=== PATIENT | male | born 1945 | race Caucasian/White ===

== ENCOUNTER 2016-10-22 05:49 | Inpatient (IN) | payer MEDICARE ==
[2016-10-22] VITALS (18 sets, daily range): BP systolic 88–210; BP diastolic 46–94
[~2016-10-22] VITALS: Ht 195.5 cm; Wt 104.5 kg
[~2016-10-22 05:49] MED LIST: ALBUTEROL0.09 MG/A2 IH; ALBUTEROL0.09 MG/A2 INH; ASPI-COR81 M1 PO; ATIVAN0.5 MG PO; AVAPRO300 MG PO; BENICAR40 MG PO; CELEBREX200 MG PO; CIPRO500 MG PO; CIPROFLOXACIN500 MG PO; CLINDAMYCIN HC300 MG PO; COLACE100 MG PO; COPPERAS1 CRE; DOXYCYCLINE100 MG PO; DULCOLAX10 MG RC; ECOTRIN325 MG PO; ENTERIC ASPIRI325 MG PO; FLAGYL500 MG; IMDUR60 MG PO; ISOSORBIDE30 MG PO; KEFLEX500 MG PO; LEVAQUIN750 MG PO; LIPITOR80 MG PO; LOPRESSOR50 MG PO; LYRICA75 MG PO; Lovenox30 MG/0.3 SC; MEDROL DOSEPAK4 MG PO; MOM30 ML PO; NITROGLYCER0.1 MG/HR T; NITROGLYCERIN0.4 MG PO; NITROSTAT0.4 MG SL; NORFLEX100 MG PO; OXY IR5 MG PO; OXYCODONE5 MG PO; PERCOCET 325 MG1 TA2 PO; PERCOCET 325 MG1 TA4 PO; PERCOCET 325 MG1 TA7 PO; PLAVIX75 MG PO; PREDNICOT20 MG PO; PREDNISONE20 M1 PO; PRILOSEC20 MG PO; ROBITUSSIN AC 110 ML PO; VICODIN 5/500 505 MG PO; VICODIN ES 7501 TA1 PO; ZETIA10 MG PO; ZITHROMAX Z PA250 MG PO; ZITHROMAX250 MG PO; ZOFRAN ODT4 MG SL; [UNRECOGNIZED DRUG - OTHER] PO
[2016-10-22 06:04] LABS: BASO % 0.6 % (0.0-1.0); EOS # 0.2 10*3/uL (0.0-0.4); EOS % 3.4 % (1.0-4.0); HEMATOCRIT 43.1 % (42.0-52.0); HEMOGLOBIN 14.1 g/dl (14.0-18.0); LYMPH # 1.7 10*3/uL (1.3-4.4); LYMPH % 26.5 % (27.0-41.0); MEAN CELL VOLUME 93.3 fl (80.0-94.0); MEAN CORPUSCULAR HGB 30.5 pg (27.0-31.0); MEAN CORPUSCULAR HGB CONC 32.7 g/dl (33.0-37.0); MEAN PLATELET VOLUME 9.8 fl (9.6-12.3); MONO # 0.6 10*3/uL (0.1-1.0); MONO % 9.1 % (3.0-9.0); NEUT # 3.9 10*3/uL (2.3-7.9); NEUT % 60.1 % (47.0-73.0); PLATELET COUNT AUTOMATED 186 10*3/uL (130-400); RED BLOOD COUNT 4.62 10*6/uL (4.50-5.90); RED CELL DISTRI WIDTH 13.4 % (0-14.5); WHITE BLOOD COUNT 6.5 10*3/uL (4.8-10.8)
[2016-10-22 06:12] LABS: INTERNATIONAL NORM RATIO 1.1 (2.0-3.5); PROTHROMBIN TIME 11.4 SECONDS (9.0-12.4)
[2016-10-22 06:20] LABS: ALBUMIN 3.7 gm/dl (3.1-4.5); ALKALINE PHOSPHATASE 58 U/L (45-117); BILIRUBIN, TOTAL 0.6 mg/dl (0.2-1.0); BUN 20 mg/dl (7-24); CARBON DIOXIDE 21 mmol/L (21-32); CHLORIDE 105 mmol/L (98-107); EST GLOM FILT AFRICAN AMERICAN > 60 ml/min; GLUCOSE 176 mg/dL (65-99); MAGNESIUM 1.9 mg/dL (1.5-2.1); POTASSIUM 3.5 mmol/L (3.5-5.1); SGOT/AST 32 IU/L (3-35); SGPT/ALT 38 U/L (12-78); SODIUM 140 mmol/L (136-145); TOTAL PROTEIN 7.4 gm/dL (6.4-8.2)
[2016-10-22 06:24] LABS: TROPONIN I 0.057 ng/ml (<0.045)
[2016-10-22] MEDS ORDERED: IMDUR SA60 M1 PO (09:56)
[2016-10-22] MEDS ORDERED: PLAVIX75 M1 PO (09:56)
[2016-10-22] MEDS ORDERED: LOPRESSOR50 M1 PO (09:57)
[2016-10-22] MEDS ORDERED: BENICAR40 MG PO (09:57)
[2016-10-22] MEDS ORDERED: PRILOSEC20 M1 PO (09:58)
[2016-10-22] MEDS ORDERED: NOVOLOG MI100 UNIT/1 SQ (10:21)
[2016-10-23] VITALS: BP 103/50
[2016-10-23 04:00] VITALS: BP 108/48
[2016-10-23 08:00] VITALS: BP 109/58
[2016-10-23 11:44] VITALS: BP 100/51
[2016-10-23 16:00] VITALS: BP 126/75
[2016-10-23 20:00] VITALS: BP 105/48
[2016-10-24] VITALS: BP 109/48
[2016-10-24 07:59] VITALS: BP 130/84
[2016-10-24 12:00] VITALS: BP 102/66
[2016-10-24] MEDS ORDERED: VENTOLIN,PR2 MG/5 ML PO (12:38)
[2016-10-24] MEDS ORDERED: CELEXA20 MG PO (12:38)
[2016-10-24] MEDS ORDERED: ADVAIR 250/501 EA INH (12:38)
== END 2016-10-24 14:12 | disposition home or self-care (01) | DRG 189 ==
LOC: ED 05:49 → EDHOLD 06:20 → ICCU 06:20 → 4E 10-23 14:04
PROVIDERS: Emergency Medicine Emergency Medical Services
PROC: 3E073KZ Introduction of Other Diagnostic Substance into Coronary Artery, Percutaneous Approach (ICD-10-PCS; principal; 2016-10-22)
PROC: 4A02XM4 Measurement of Cardiac Total Activity, External Approach (ICD-10-PCS; principal; 2016-10-22)
PROC: 5A09357 Assistance with Respiratory Ventilation, Less than 24 Consecutive Hours, Continuous Positive Airway Pressure (ICD-10-PCS; principal; 2016-10-22)
DX: J96.00 Acute respiratory failure, unspecified whether with hypoxia or hypercapnia (principal); I50.21 Acute systolic (congestive) heart failure; I42.9 Cardiomyopathy, unspecified; G20 Parkinson's disease; J44.1 Chronic obstructive pulmonary disease with (acute) exacerbation; I11.0 Hypertensive heart disease with heart failure; I25.5 Ischemic cardiomyopathy; I25.10 Atherosclerotic heart disease of native coronary artery without angina pectoris; Z96.651 Presence of right artificial knee joint; F32.9 Major depressive disorder, single episode, unspecified; Z79.899 Other long term (current) drug therapy; K21.9 Gastro-esophageal reflux disease without esophagitis; D63.8 Anemia in other chronic diseases classified elsewhere; F41.9 Anxiety disorder, unspecified; E78.5 Hyperlipidemia, unspecified; Z88.1 Allergy status to other antibiotic agents; Z95.1 Presence of aortocoronary bypass graft; Z82.49 Family history of ischemic heart disease and other diseases of the circulatory system; Z79.82 Long term (current) use of aspirin; Z90.49 Acquired absence of other specified parts of digestive tract; I25.2 Old myocardial infarction

== ENCOUNTER 2016-11-18 05:31 | Inpatient (IN) | payer MEDICARE ==
[~2016-11-18] VITALS: Ht 195.5 cm; Wt 102.1 kg
[2016-11-18] VITALS (12 sets, daily range): BP systolic 86–133; BP diastolic 52–80
--- NOTE | ~2016-11-18 | PR ---
[place], [place] PROGRESS NOTE NAME: MERNA ABARCA UNIT #: [id number] ROOM: 511 DOCTOR: FILIPE COLEMAN MD BIRTHDATE: [birth year] DOS: 11/20/2016 The patient's 24-hour events noted. Discussed with nursing staff. PHYSICAL EXAMINATION: VITAL SIGNS: Hemodynamically stable. Blood pressure is stable at 109/60. NECK: Supple, no JVD. LUNGS: Diminished breath sounds. HEART: Sounds are regular. ABDOMEN: Soft. NEUROLOGICAL: Stable. LABORATORY DATA: Hemoglobin 11.8, hematocrit 35.7. ____. Creatinine is 1.5. Chest x-ray is pending. IMPRESSION: The patient with chronic obstructive pulmonary disease exacerbation, severe ischemic cardiomyopathy and hypertension. Cardiac status appears to be stable. PLAN: Continue the present care and I will follow up. FILIPE COLEMAN MD CM:JONES 1 FILIPE COLEMAN MD 11/20/16 0936 interface
--- NOTE | ~2016-11-18 | EKG ---
[place], [place] ELECTROCARDIOGRAM REPORT NAME: MERNA ABARCA UNIT #: [id number] ROOM: 511 DOCTOR: DALJIT ARAUJO MD BIRTHDATE: [birth year] DOS: 11/18/2016 TIME: 5:57:37. RATE AND RHYTHM: Sinus rhythm at 55 beats per minute. FL interval at 233 milliseconds, QRS duration 124 milliseconds, corrected QT interval is 528 milliseconds, QRS axis is 81. IMPRESSION: 1. Normal sinus rhythm. 2. Ventricular premature complexes noted. 3. First degree AV block. 4. Prolonged QT interval, Q-waves noted in leads V2, V3, and possibly indicating old anterior infarct. The patient does have history of CABG done. It is abnormal EKG. We will follow the patient clinically. DALJIT ARAUJO MD CM:EKGRPT:ELECTROCARDIOGRAM REPORT [id number] 1401 DALJIT ARAUJO MD
--- NOTE | ~2016-11-18 | CON ---
[place], [place] REPORT OF CONSULTATION NAME: MERNA ABARCA UNIT #: [id number] ROOM: 511 DOCTOR: FILIPE COLEMAN MD BIRTHDATE: [birth year] DOS: 11/19/2016 CHIEF COMPLAINT: Severe shortness of breath. HISTORY OF PRESENT ILLNESS: A 71-year-old gentleman admitted with significant shortness of breath. The patient is well known to me with a history of ischemic cardiomyopathy, recently had a stress test, no evidence of ischemia with a fixed defect with an ejection fraction preserved to be about 50%. The patient admitted with significant shortness of breath. He took his Advair and albuterol inhalers without any relief. No chest discomfort. Had clear lungs. No acute EKG changes, suggestion of myocardial injury or infarction. The patient was given steroids and breathing treatments in the hospital. Chest x-ray showed chronic changes with COPD with mild pulmonary vascular condition. PAST MEDICAL HISTORY: Coronary artery disease, cardiomyopathy, COPD, emphysema, hypertension, hyperlipidemia and old myocardial infarction. PAST SURGICAL HISTORY: Colostomy and history of bypass surgery. SOCIAL HISTORY: Does not drink, former smoker. ALLERGIES: None. FAMILY HISTORY: Positive for coronary artery disease. HOME MEDICATIONS: Clopidogrel, atorvastatin, insulin, isosorbide and metoprolol. REVIEW OF SYSTEMS: CONSTITUTIONAL: Positive for shortness of breath. HEENT: No visual disturbances or hearing problems. RESPIRATORY: As mentioned. GASTROINTESTINAL: No nausea, no vomiting. NEUROLOGICAL: No syncope. ENDOCRINE: Intact. PHYSICAL EXAMINATION: VITAL SIGNS: Blood pressure today is 120/60. The patient is in sinus rhythm. HEENT: Unremarkable. NECK: Supple, no JVD. LUNGS: Diminished breath sounds with few coarse rhonchi. HEART: Sounds are regular. ABDOMEN: Soft. NEUROLOGICAL: Stable. LABORATORY DATA: Electrolytes are normal. Hemoglobin 12.7, hematocrit 38.8. Chest x-ray showed COPD. IMPRESSION: Chronic obstructive pulmonary disease exacerbation, history of diastolic heart failure, dermatitis, coronary artery disease, depression, [place], [place] REPORT OF CONSULTATION NAME: MERNA ABARCA UNIT #: [id number] ROOM: 511 DOCTOR: IFLIPE COLEMAN MD BIRTHDATE: [birth year] chronic obstructive pulmonary disease, hyperlipidemia and leukopenia. Recent stress test had shown the last ejection fraction was about 35% with moderate mitral and tricuspid regurgitation. Recent stress test showed a fixed defect without any reversibility. RECOMMENDATIONS: Continue the present management. Echo done, it showed an ejection fraction is about 25% at this time. IMPRESSION: The patient with ischemic cardiomyopathy. Continue with other medications as ordered. Continue with losartan, isosorbide, atorvastatin, clopidogrel, add diuretics and I will follow up. ADDENDUM The patient's repeat echocardiogram was read by Dr. Alex as 25%, it used to be 35%. The patient is not in congestive heart failure. Chest x-ray showed COPD. Recent stress test showed a fixed defect of the inferior wall without any reversibility. I discussed at length about the AICD to the patient. The patient is reluctant and does not want to have it done at this point. I explained to him the risks of not consenting back, just had a recent stress test which showed a fixed defect as scar tissue. RECOMMENDATIONS: Continue the beta-blockers if needed. A very small dose of diuretics, either Aldactone 12.5 mg or Lasix 20 mg every other day should be entertained because of the LV dysfunction. The patient is not on an CHARLES inhibitor at this point because of the renal insufficiency as well as hypotension. Continue the beta-blockers as ordered, monitor strict I's and O's and we will follow up. FILIPE COLEMAN MD CM:CONSTR:REPORT OF CONSULTATION 0708 11/20/16 0634 interface
[~2016-11-18 05:31] MED LIST changes: +ADVAIR 250/501 EA INH; +CELEXA20 MG PO; +IMDUR SA60 M1 PO; +LOPRESSOR50 M1 PO; +NOVOLOG MI100 UNIT/1 SQ; +PLAVIX75 M1 PO; +PRILOSEC20 M1 PO; +VENTOLIN,PR2 MG/5 ML PO
[2016-11-18 06:10] LABS: BASO % 0.4 % (0.0-1.0); EOS # 0.1 10*3/uL (0.0-0.4); EOS % 2.7 % (1.0-4.0); HEMATOCRIT 38.8 % (42.0-52.0); HEMOGLOBIN 12.7 g/dl (14.0-18.0); LYMPH # 0.9 10*3/uL (1.3-4.4); LYMPH % 19.8 % (27.0-41.0); MEAN CELL VOLUME 91.3 fl (80.0-94.0); MEAN CORPUSCULAR HGB 29.9 pg (27.0-31.0); MEAN CORPUSCULAR HGB CONC 32.7 g/dl (33.0-37.0); MEAN PLATELET VOLUME 9.4 fl (9.6-12.3); MONO # 0.4 10*3/uL (0.1-1.0); MONO % 9.8 % (3.0-9.0); NEUT % 67.1 % (47.0-73.0); PLATELET COUNT AUTOMATED 171 10*3/uL (130-400); RED BLOOD COUNT 4.25 10*6/uL (4.50-5.90); RED CELL DISTRI WIDTH 12.9 % (0-14.5); WHITE BLOOD COUNT 4.5 10*3/uL (4.8-10.8)
[2016-11-18 06:28] LABS: BUN 16 mg/dl (7-24); CARBON DIOXIDE 22 mmol/L (21-32); CHLORIDE 109 mmol/L (98-107); EST GLOM FILT AFRICAN AMERICAN > 60 ml/min; GLUCOSE 128 mg/dL (65-99); POTASSIUM 3.6 mmol/L (3.5-5.1); SODIUM 141 mmol/L (136-145); TROPONIN I 0.044 ng/ml (<0.045)
[2016-11-19] VITALS: BP 99/50
[2016-11-19 06:19] LABS: HEMOGLOBIN A1c 6.4 % (4.8-5.6)
[2016-11-19 06:28] LABS: ALBUMIN 3.2 gm/dl (3.1-4.5); BILIRUBIN, TOTAL 0.3 mg/dl (0.2-1.0); CARBON DIOXIDE 22 mmol/L (21-32); CHLORIDE 103 mmol/L (98-107); CHOLESTEROL 199 mg/dL (<200); EST GLOM FILT AFRICAN AMERICAN > 60 ml/min; GLUCOSE 182 mg/dL (65-99); MAGNESIUM 2.1 mg/dL (1.5-2.1); PHOSPHOROUS 3.3 mg/dL (2.5-4.9); POTASSIUM 4.2 mmol/L (3.5-5.1); SGOT/AST 13 IU/L (3-35); SGPT/ALT 23 U/L (12-78); SODIUM 136 mmol/L (136-145); TOTAL PROTEIN 6.7 gm/dL (6.4-8.2); TRIGLYCERIDES 96 mg/dl (<150); VLDL CHOLESTEROL 19 mg/dL (6-40)
[2016-11-19 06:31] LABS: HEMATOCRIT 35.9 % (42.0-52.0); MEAN CELL VOLUME 91.1 fl (80.0-94.0); MEAN CORPUSCULAR HGB 30.5 pg (27.0-31.0); MEAN CORPUSCULAR HGB CONC 33.4 g/dl (33.0-37.0); MEAN PLATELET VOLUME 10.2 fl (9.6-12.3); PLATELET COUNT AUTOMATED 187 10*3/uL (130-400); RED BLOOD COUNT 3.94 10*6/uL (4.50-5.90); WHITE BLOOD COUNT 11.6 10*3/uL (4.8-10.8)
[2016-11-19 06:35] LABS: ALKALINE PHOSPHATASE 53 U/L (45-117); BUN 31 mg/dl (7-24); HDL CHOLESTEROL 35 mg/dl (40-60); LDL CHOLESTEROL 145 mg/dL (9-159); THYROID STIM HORMONE (HS) 0.715 uIU/ml (0.358-4.75)
[2016-11-19 06:47] LABS: VITAMIN D, 25-HYDROXY 39.1 ng/mL (30-100)
[2016-11-19 06:48] LABS: FOLIC ACID 10.08 ng/mL (>5.38)
[2016-11-19 07:10] LABS: LYMPHOCYTE # 0.6 10*3/uL (1.3-4.4); MONOCYTE # 0.2 10*3/uL (0.1-1.0); NEUTROPHIL # 10.8 10*3/uL (2.3-7.9); NEUTROPHILS 93 % (47-73); PLATELET SUFFICIENCY NORMAL (NORMAL); TOTAL CELLS COUNTED 100 #CELLS
[2016-11-19 08:00] VITALS: BP 119/65
[2016-11-19] MEDS ORDERED: METFORMIN1000 MG PO (10:50)
[2016-11-19 12:00] VITALS: BP 91/50
[2016-11-19 16:00] VITALS: BP 106/51
[2016-11-19 20:00] VITALS: BP 101/48
[2016-11-20] VITALS: BP 109/50
[2016-11-20 06:44] LABS: HEMATOCRIT 35.7 % (42.0-52.0); HEMOGLOBIN 11.8 g/dl (14.0-18.0); MEAN CELL VOLUME 92.2 fl (80.0-94.0); MEAN CORPUSCULAR HGB 30.5 pg (27.0-31.0); MEAN CORPUSCULAR HGB CONC 33.1 g/dl (33.0-37.0); MEAN PLATELET VOLUME 10.2 fl (9.6-12.3); PLATELET COUNT AUTOMATED 189 10*3/uL (130-400); RED BLOOD COUNT 3.87 10*6/uL (4.50-5.90); RED CELL DISTRI WIDTH 13.2 % (0-14.5); WHITE BLOOD COUNT 13.2 10*3/uL (4.8-10.8)
[2016-11-20 07:00] LABS: POTASSIUM 4.4 mmol/L (3.5-5.1)
[2016-11-20 07:27] LABS: LYMPHOCYTE # 0.5 10*3/uL (1.3-4.4); MONOCYTE # 0.4 10*3/uL (0.1-1.0); NEUTROPHIL # 12.3 10*3/uL (2.3-7.9); NEUTROPHILS 93 % (47-73); PLATELET SUFFICIENCY NORMAL (NORMAL); TOTAL CELLS COUNTED 100 #CELLS
[2016-11-20 08:00] VITALS: BP 117/63
[2016-11-20 12:00] VITALS: BP 102/48
[2016-11-20 13:34] LABS: BILIRUBIN NEGATIVE (NEGATIVE); BLOOD NEGATIVE (NEGATIVE); CLARITY CLEAR (CLEAR); COLOR YELLOW (YELLOW); GLUCOSE NEGATIVE (NEGATIVE); KETONE NEGATIVE (NEGATIVE); LEUKO ESTERASE NEGATIVE (NEGATIVE); NITRITE NEGATIVE (NEGATIVE); PH 5.5 (5.0-9.0); PROTEIN TRACE (NEGATIVE); SPECIFIC GRAVITY 1.025 (1.005-1.030); UROBILINOGEN 0.2 E.U./dl (0.2-1.0)
[2016-11-20 13:48] LABS: EPITHELIAL CELLS 0-2; URINE REFLEX COMMENT NO (NO); WBC 0-2 wbc/hpf (0-5)
[2016-11-20 16:00] VITALS: BP 114/65
[2016-11-20 20:00] VITALS: BP 114/56
[2016-11-21] VITALS: BP 112/55
[2016-11-21 07:30] LABS: POTASSIUM 4.2 mmol/L (3.5-5.1)
[2016-11-21 08:00] VITALS: BP 114/50
[2016-11-21] MEDS ORDERED: LEVAQUIN500 M2 PO (09:51)
[2016-11-21] MEDS ORDERED: PREDNISONE10 MG PO (10:01)
[2016-11-21] MEDS ORDERED: FUROSEMIDE20 M1 PO (10:01)
[2016-11-21] MEDS ORDERED: SPIRIVA RESPIMAT4 G1 INH (10:01)
[2016-11-21] MEDS ORDERED: DULE1ARO INH (10:01)
[2016-11-21] MEDS ORDERED: MUCINEX ER600 MG PO (10:11)
[2016-11-21] MEDS ORDERED: PROAIR HFA8.5 GM INH (10:11)
[2016-11-21 12:00] VITALS: BP 136/67
== END 2016-11-21 15:03 | disposition home health service (06) | DRG 871 ==
LOC: ED 05:31 → EDHOLD 07:20 → 5E 07:20 → EDHOLD 07:21 → 5E 07:51
PROVIDERS: Emergency Medicine Emergency Medical Services; Internal Medicine
DX: A41.9 Sepsis, unspecified organism (principal); N17.0 Acute kidney failure with tubular necrosis; I50.43 Acute on chronic combined systolic (congestive) and diastolic (congestive) heart failure; E44.1 Mild protein-calorie malnutrition; F33.9 Major depressive disorder, recurrent, unspecified; I13.0 Hypertensive heart and chronic kidney disease with heart failure and stage 1 through stage 4 chronic kidney disease, or unspecified chronic kidney disease; J44.1 Chronic obstructive pulmonary disease with (acute) exacerbation; Z68.26 Body mass index [BMI] 26.0-26.9, adult; I95.2 Hypotension due to drugs; N18.3 Chronic kidney disease, stage 3 (moderate); L30.9 Dermatitis, unspecified; I25.10 Atherosclerotic heart disease of native coronary artery without angina pectoris; K21.9 Gastro-esophageal reflux disease without esophagitis; E87.8 Other disorders of electrolyte and fluid balance, not elsewhere classified; D64.9 Anemia, unspecified; F41.9 Anxiety disorder, unspecified; E78.5 Hyperlipidemia, unspecified; Z96.653 Presence of artificial knee joint, bilateral; E11.65 Type 2 diabetes mellitus with hyperglycemia; E11.22 Type 2 diabetes mellitus with diabetic chronic kidney disease; E83.51 Hypocalcemia; I25.5 Ischemic cardiomyopathy; Z79.4 Long term (current) use of insulin; Z87.891 Personal history of nicotine dependence; Z88.1 Allergy status to other antibiotic agents; Z95.1 Presence of aortocoronary bypass graft; Z82.49 Family history of ischemic heart disease and other diseases of the circulatory system; I25.2 Old myocardial infarction; Z90.49 Acquired absence of other specified parts of digestive tract; Z80.42 Family history of malignant neoplasm of prostate; Z79.82 Long term (current) use of aspirin; Z79.84 Long term (current) use of oral hypoglycemic drugs; Z79.899 Other long term (current) drug therapy

== ENCOUNTER 2017-02-05 00:48 | Inpatient (IN) | payer MEDICARE ==
[2017-02-05] VITALS (7 sets, daily range): BP systolic 118–157; BP diastolic 70–103
[~2017-02-05] VITALS: Ht 195.5 cm; Wt 105.4 kg
--- NOTE | ~2017-02-05 | DS ---
[place], [place] DISCHARGE SUMMARY NAME: MERNA ABARCA UNIT #: [id number] ROOM: 511 DOCTOR: LUIS ZHANG MD BIRTHDATE: [birth year] DOS: 02/06/2017 DISCHARGE DIAGNOSES: 1. Acute small-bowel obstruction, resolved with treatment. 2. Ileocolic anastomosis in the remote past. 3. Centrilobular emphysema with chronic shortness of breath. 4. Coronary artery disease of the [place] vessels. 5. Generalized anxiety disorder, which is chronic. 6. Chronic kidney disease stage 3. 7. Mild protein calorie malnutrition. 8. Type 2 diabetes mellitus. 9. Mixed hyperlipidemia. 10. Benign essential hypertension. HOSPITAL COURSE: The patient presented to the Emergency Department with increasing distention and pain in his abdomen without nausea or vomiting. The patient did have constipation. The patient was found to have small-bowel obstruction and ileus on CT of the abdomen and pelvis. The patient had abdominal distention and he was made n.p.o. and started on intermittent NG suctioning. Ultimately, consult was obtained with Dr. Lopez. The patient has recovered completely with abdominal distention relieved. He has moved his bowels and is eating normally. He is asymptomatic with no abdominal pains. Benign essential hypertension, with controlled blood pressures. Coronary artery disease of the [place] vessels, without chest pains. Type 2 diabetes mellitus, with well controlled blood sugars. LABORATORY DATA: Hemoglobin of 12. No leukocytosis. Acute abdominal series showing chronic operative changes, no acute abnormality. Normal serum electrolytes, BUN and creatinine. DISCHARGE MANAGEMENT: Imdur 60 mg a day, Plavix 75 mg a day, metoprolol 50 mg b.i.d., Dulera twice a day. FOLLOWUP: With Dr. Gulshan Downing, his PCP next week and Dr. Lopez, the surgeon would like to follow him too. [place], [place] DISCHARGE SUMMARY NAME: MERNA ABARCA UNIT #: [id number] ROOM: 511 DOCTOR: LUIS ZHANG MD BIRTHDATE: [birth year] LUIS ZHANG MD CM:DISCHARG [id number] LUIS ZHANG MD 02/06/172054 interface
--- NOTE | ~2017-02-05 | WRIGHTHP ---
[place], [place] PATIENT HISTORY AND PHYSICAL EXAM NAME: MERNA ABARCA [facility] #: [id number] UNIT #: [id number] ROOM: 511 DOCTOR: LUIS ZHANG MD BIRTHDATE: [birth year] DOS: 02/05/2017 HISTORY OF PRESENT ILLNESS: The patient is a 71-year-old gentleman with a past medical history of: 1. COPD. 2. Mild protein calorie malnutrition. 3. Chronic kidney disease stage 3. 4. Coronary artery disease of [place] vessels. 5. Major depression, recurrent. 6. GERD and esophagitis. 7. Generalized anxiety disorder. 8. Mixed hyperlipidemia. 9. Type 2 diabetes mellitus. 10. Benign essential hypertension. The patient presented to [facility] with 1 day complaints of increasing distention and pain in his abdomen without any nausea, vomiting. The patient felt constipated. In the Emergency Department, the patient was found to have small-bowel obstruction, ileus on CT of the abdomen and pelvis. He was found to have moderately distended fluid filled small bowel loops distal to the ileocolonic anastomosis, compatible with distal small-bowel obstruction. The patient was recommended for admission and further management. An NG tube was placed to intermittent suction to reduce the abdominal distention and the patient admitted to [facility] where he is starting to feel somewhat better. The patient says he has started to move his bowels. No chest pain, shortness of breath. No other GI or urinary symptoms. REVIEW OF SYSTEMS: LUNGS: No increasing shortness of breath or wheezing. GASTROINTESTINAL: No nausea or vomiting. The patient had constipation prior to coming to the hospital. CARDIOVASCULAR: No chest pain. No palpitations. FAMILY HISTORY: Noncontributory. HOME MEDICATIONS: Insulin, metoprolol, Imdur, Plavix, Spiriva and insulin. ALLERGIES: Known allergies to CEFAZOLIN. PHYSICAL EXAMINATION: GENERAL: Alert and oriented x 3, in no visible distress. NG tube in place. HEENT AND NECK: Extraocular movements are intact. Sclerae are anicteric. Oral mucosa is moist and clean. No obvious facial weakness. Neck is supple without any lymphadenopathy. No thyromegaly. No JVD. No carotid arterial bruits. LUNGS: Clear to auscultation. No wheezing. No rhonchi. CARDIOVASCULAR SYSTEM: Heart rate is regular in rate and rhythm. S1 and S2 normally audible. No significant murmur or any other abnormal cardiac sounds. ABDOMEN: Soft, nontender. No obvious organomegaly. Bowel sounds are present. No obvious herniation. A couple of surgical healed scars from previous surgeries from partial colectomy in the past. [place], [place] PATIENT HISTORY AND PHYSICAL EXAM NAME: MERNA ABARCA UNIT #: [id number] ROOM: 511 DOCTOR: LUIS ZHANG MD BIRTHDATE: [birth year] EXTREMITIES: Without significant cyanosis or edema. Warm to touch. CENTRAL NERVOUS SYSTEM: Alert and oriented x 3. Cranial nerves II-XII are intact. Speech is normal. The patient is able to move all extremities. Normal muscle strength. Deep tendon reflexes are equal on both sides. Plantars were downgoing. IMPRESSION AND PLAN: 1. Small-bowel obstruction. Surgery had been consulted and the patient is clinically improving with NG tube on intermittent suction. His abdominal distention is decreasing. He has bowel sounds and also moving his bowels. The patient remains n.p.o. except for medications. 2. Centrilobular emphysema with chronic shortness of breath and dyspnea on exertion, remain stable. The patient is on bronchodilators. 3. Coronary artery disease of the [place] vessels without chest pains. 4. Generalized anxiety disorder, stable, chronic. 5. CT of the abdomen and pelvis results as mentioned above. Normal serum electrolytes, BUN and creatinine. LUIS ZHANG MD CM:HISPHYS:PATIENT HISTORY AND PHYSICAL EXAMINATION 1050 [id number] LUIS ZHANG MD 02/05/17 1738 interface
--- NOTE | ~2017-02-05 | WRIGHTHP ---
[place], [place] PATIENT HISTORY AND PHYSICAL EXAM NAME: MERNA ABARCA UNIT #: [id number] ROOM: 511 DOCTOR: LUIS ZHANG MD BIRTHDATE: [birth year] DOS: 02/05/2017 ADDENDUM IMPRESSION 1. Small-bowel obstruction. Surgery had been consulted and the patient is clinically improving with NG tube on intermittent suction. His abdominal distention is decreasing. He has bowel sounds and also moving his bowels. The patient remains n.p.o. except for medications. 2. Centrilobular emphysema with chronic shortness of breath and dyspnea on exertion, remain stable. The patient is on bronchodilators. 3. Coronary artery disease of the [place] vessels without chest pains. 4. Generalized anxiety disorder, stable, chronic. 5. CT of the abdomen and pelvis results as mentioned above. Normal serum electrolytes, BUN and creatinine. LUIS ZHANG MD CM:HISPHYS:PATIENT HISTORY AND PHYSICAL EXAMINATION 1102 1119 LUIS ZHANG MD 02/05/17 1118 interface
[~2017-02-05 00:48] MED LIST changes: +DULE1ARO INH; +FUROSEMIDE20 M1 PO; +LEVAQUIN500 M2 PO; +METFORMIN1000 MG PO; +MUCINEX ER600 MG PO; +PREDNISONE10 MG PO; +PROAIR HFA8.5 GM INH; +SPIRIVA RESPIMAT4 G1 INH
[2017-02-05 01:19] LABS: BASO % 0.4 % (0.0-1.0); EOS # 0.2 10*3/uL (0.0-0.4); EOS % 1.7 % (1.0-4.0); HEMATOCRIT 40.4 % (42.0-52.0); HEMOGLOBIN 13.6 g/dl (14.0-18.0); LYMPH # 1.1 10*3/uL (1.3-4.4); LYMPH % 11.3 % (27.0-41.0); MEAN CELL VOLUME 87.8 fl (80.0-94.0); MEAN CORPUSCULAR HGB 29.6 pg (27.0-31.0); MEAN CORPUSCULAR HGB CONC 33.7 g/dl (33.0-37.0); MEAN PLATELET VOLUME 9.4 fl (9.6-12.3); MONO # 0.7 10*3/uL (0.1-1.0); MONO % 7.8 % (3.0-9.0); NEUT # 7.3 10*3/uL (2.3-7.9); NEUT % 78.5 % (47.0-73.0); PLATELET COUNT AUTOMATED 242 10*3/uL (130-400); RED CELL DISTRI WIDTH 13.4 % (0-14.5); WHITE BLOOD COUNT 9.4 10*3/uL (4.8-10.8)
[2017-02-05 01:22] LABS: BILIRUBIN NEGATIVE (NEGATIVE); BLOOD NEGATIVE (NEGATIVE); CLARITY CLEAR (CLEAR); COLOR YELLOW (YELLOW); GLUCOSE NEGATIVE (NEGATIVE); KETONE NEGATIVE (NEGATIVE); LEUKO ESTERASE NEGATIVE (NEGATIVE); NITRITE NEGATIVE (NEGATIVE); SPECIFIC GRAVITY >= 1.030 (1.005-1.030); UROBILINOGEN 0.2 E.U./dl (0.2-1.0)
[2017-02-05 01:35] LABS: ALKALINE PHOSPHATASE 63 U/L (45-117); BUN 13 mg/dl (7-24); CHLORIDE 107 mmol/L (98-107); CREATININE 1.24 mg/dL (0.70-1.30); POTASSIUM 4.1 mmol/L (3.5-5.1); SGOT/AST 26 IU/L (3-35); SGPT/ALT 27 U/L (12-78); SODIUM 140 mmol/L (136-145); TOTAL PROTEIN 7.8 gm/dL (6.4-8.2)
[2017-02-05 01:36] LABS: HYALINE CAST 15-20
[2017-02-05 01:37] LABS: WBC 0-2 wbc/hpf (0-5)
--- NOTE | 2017-02-05 03:56 | NUR ---
NG PLACEMENT CONFIRMED BY AIR BOLUS AUDIBLE AND CHEST XRAY.
--- NOTE | 2017-02-05 04:00 | NUR ---
A 71, admitted to 5E, under the services of Dr. LEATHA GILL,LUIS Lopez with a diagnosis of SMALL BOWEL OBSTRUCTION. Chief complaint is ABDOMINAL PAIN. Patient arrived via bed from ER. Monitor applied. Initial assessment completed. Vital signs taken and recorded. DR. LEATHA GILL,LUIS Lopez notified of admission to the unit. Orders received. See assessment for past medical history, medications and allergies. Patient and/or family oriented to unit. visitation policy reviewed. Clothing/patient valuable form completed. LONG VACA
--- NOTE | 2017-02-05 04:23 | NUR ---
MED REC UP TO DATE PER PT MED LIST
--- NOTE | 2017-02-05 06:24 | NUR ---
DR MOODY NOTIFIED OF CONSULT. STATED HE WILL SEE HIM THIS MORNING.
[2017-02-05 07:01] LABS: BASO % 0.4 % (0.0-1.0); EOS % 0.5 % (1.0-4.0); HEMATOCRIT 38.2 % (42.0-52.0); HEMOGLOBIN 12.4 g/dl (14.0-18.0); LYMPH # 0.7 10*3/uL (1.3-4.4); MEAN CELL VOLUME 88.8 fl (80.0-94.0); MEAN CORPUSCULAR HGB 28.8 pg (27.0-31.0); MEAN CORPUSCULAR HGB CONC 32.5 g/dl (33.0-37.0); MEAN PLATELET VOLUME 9.5 fl (9.6-12.3); MONO # 0.5 10*3/uL (0.1-1.0); MONO % 6.5 % (3.0-9.0); NEUT # 6.5 10*3/uL (2.3-7.9); NEUT % 83.1 % (47.0-73.0); PLATELET COUNT AUTOMATED 215 10*3/uL (130-400); RED CELL DISTRI WIDTH 13.5 % (0-14.5); WHITE BLOOD COUNT 7.8 10*3/uL (4.8-10.8)
[2017-02-05 07:12] LABS: BUN 16 mg/dl (7-24); CHLORIDE 104 mmol/L (98-107); POTASSIUM 4.4 mmol/L (3.5-5.1); SODIUM 140 mmol/L (136-145)
--- NOTE | 2017-02-05 07:21 | NUR ---
Animal Behaviourist in to talk to patient. Patient states lives at HOME ALONE with . There are 0 steps in the home. Physician: DR ARAUJO Pharmacy: [facility] IN [place] Home health services: NONE Patient's level of ADLs: INDEPENDENT Patient has working utilities: YES DME: NONE Follow-up physician's appointment after d/c: PREFERS TO MAKE HIS OWN APPT Does patient want to access PORTAL?: Discharge plan HOME. ALEJANDRA KNIGHT
--- NOTE | 2017-02-05 09:18 | NUR ---
PT GIVEN 1MG OF DILAUDID FOR PAIN LEVEL OF 7.
--- NOTE | 2017-02-05 10:00 | NUR ---
PT STATES PAIN LEVEL HAS DECREASED TO A 3 POST DILAUDID ADMINISTRATION.
--- NOTE | 2017-02-05 15:24 | NUR ---
PT RECEIVED DILAUDID FOR PAIN LEVEL OF 7.
--- NOTE | 2017-02-05 16:00 | NUR ---
PT STATES PAIN LEVEL HAS REDUCED TO 5/10 SINCE RECEIVING DILAUDID.
--- NOTE | 2017-02-05 19:50 | NUR ---
RESTING QUIETLY IN BED. STATES HE FEELS MUCH BETTER THAN HE DID THIS MORNING. ABDOMINAL DISTENTION HAS DECREASED AND HE IS NOT IN ANY PAIN. NO VOICED COMPLAINTS AT THIS TIME. HE IS PLEASANT/COOPERATIVE WITH CARE.FLUIDS MAINTAINED PER ORDER. CALL LIGHT IS IN REACH.
--- NOTE | 2017-02-05 22:13 | NUR ---
PATIENT MEDICATED WITH PRN DILAUDID ORDERED FOR C/O ABDOMINAL PAIN RATED A 6
--- NOTE | 2017-02-05 23:15 | NUR ---
PATIENT STATES EARLIER DILAUDID WAS EFFECTIVE. STATES HE FEELS LIKE A BRAND NEW MAN. RESPIRATIONS EASY/REG. FLUIDS MAINTAINED PER ORDER. CALL LIGHT IS IN REACH.
[2017-02-06] VITALS: BP 136/72
[2017-02-06 05:57] LABS: BASO % 0.4 % (0.0-1.0); EOS # 0.2 10*3/uL (0.0-0.4); EOS % 4.2 % (1.0-4.0); LYMPH # 1.2 10*3/uL (1.3-4.4); LYMPH % 22.8 % (27.0-41.0); MEAN CELL VOLUME 90.2 fl (80.0-94.0); MEAN CORPUSCULAR HGB 29.3 pg (27.0-31.0); MEAN CORPUSCULAR HGB CONC 32.4 g/dl (33.0-37.0); MEAN PLATELET VOLUME 9.7 fl (9.6-12.3); MONO # 0.6 10*3/uL (0.1-1.0); MONO % 10.7 % (3.0-9.0); NEUT # 3.2 10*3/uL (2.3-7.9); NEUT % 61.5 % (47.0-73.0); PLATELET COUNT AUTOMATED 202 10*3/uL (130-400); RED CELL DISTRI WIDTH 13.4 % (0-14.5); WHITE BLOOD COUNT 5.2 10*3/uL (4.8-10.8)
[2017-02-06 06:04] LABS: BUN 14 mg/dl (7-24); CHLORIDE 105 mmol/L (98-107); CREATININE 1.07 mg/dL (0.70-1.30); POTASSIUM 4.1 mmol/L (3.5-5.1); SODIUM 140 mmol/L (136-145)
--- NOTE | 2017-02-06 06:51 | NUR ---
SLEPT T/O SHIFT WITH NO VOICED COMPLAINTS. PLEASANT AND COOPERATIVE WITH CARE. FLUIDS MAINTAINED PER ORDER. CALL LIGHT IS IN REACH.
[2017-02-06 08:00] VITALS: BP 98/58
[2017-02-06] MEDS ORDERED: METFORMIN HCL1000 MG PO (08:46)
[2017-02-06 12:00] VITALS: BP 103/59
[2017-02-06 16:00] VITALS: BP 105/67
--- NOTE | 2017-02-06 18:16 | NUR ---
Discharge instructions reviewed with patient/family. Patient receptive and verbalizes understanding. Follow-up care arranged. Written instructions given to patient/family. RIGO GUILLORY
== END 2017-02-06 18:05 | disposition home or self-care (01) | DRG 389 ==
LOC: ED 00:48 → 5E 03:05 → EDHOLD 03:05 → 5E 03:28
PROVIDERS: Student in an Organized Health Care Education/Training Program; ADMIT Internal Medicine
PROC: 0D9670Z Drainage of Stomach with Drainage Device, Via Natural or Artificial Opening (ICD-10-PCS; principal; 2017-02-05)
DX: K56.609 Unspecified intestinal obstruction, unspecified as to partial versus complete obstruction (principal); E44.1 Mild protein-calorie malnutrition; E11.22 Type 2 diabetes mellitus with diabetic chronic kidney disease; I42.9 Cardiomyopathy, unspecified; I13.0 Hypertensive heart and chronic kidney disease with heart failure and stage 1 through stage 4 chronic kidney disease, or unspecified chronic kidney disease; I50.9 Heart failure, unspecified; I25.810 Atherosclerosis of coronary artery bypass graft(s) without angina pectoris; N18.3 Chronic kidney disease, stage 3 (moderate); J43.2 Centrilobular emphysema; F41.1 Generalized anxiety disorder; E78.2 Mixed hyperlipidemia; Z96.653 Presence of artificial knee joint, bilateral; F32.9 Major depressive disorder, single episode, unspecified; K21.9 Gastro-esophageal reflux disease without esophagitis; E78.5 Hyperlipidemia, unspecified; I25.2 Old myocardial infarction; Z90.49 Acquired absence of other specified parts of digestive tract; Z95.1 Presence of aortocoronary bypass graft; Z87.891 Personal history of nicotine dependence; Z80.42 Family history of malignant neoplasm of prostate; Z82.49 Family history of ischemic heart disease and other diseases of the circulatory system; Z88.8 Allergy status to other drugs, medicaments and biological substances; Z79.899 Other long term (current) drug therapy; Z79.84 Long term (current) use of oral hypoglycemic drugs; Z68.27 Body mass index [BMI] 27.0-27.9, adult

== ENCOUNTER 2017-05-10 10:34 | Inpatient (IN) | payer MEDICARE ==
[~2017-05-10] VITALS: Ht 193 cm; Wt 103.2 kg
[2017-05-10] VITALS (11 sets, daily range): BP systolic 100–136; BP diastolic 59–93
--- NOTE | ~2017-05-10 | PR ---
[place], [place] PROGRESS NOTE NAME: MERNA ABARCA UNIT #: [id number] ROOM: 404 DOCTOR: FILIPE COLEMAN MD BIRTHDATE: [birth year] DOS: 05/13/2017 SUBJECTIVE: The patient is very well known to me with a history of cardiomyopathy, coronary artery, and previous intervention. The patient was seen by Dr. Alex on my behalf yesterday. Cardiac status appears to be stable. Hemodynamically appears to be stable. REVIEW OF SYSTEMS: Improved. OBJECTIVE: VITAL SIGNS: Blood pressure is 120/70. HEENT: Unremarkable. NECK: Supple, no JVD. LUNGS: Clear. HEART: Sounds are regular. NEUROLOGIC: Stable. LABORATORY DATA: Hemoglobin 12 and hematocrit 37. Electrolytes are normal. Creatinine is 1.2. EKG sinus rhythm with nonspecific ST-T changes. Lab work are within normal limits. IMPRESSION AND PLAN: The patient with a known history of coronary artery disease, previous intervention, and chronic obstructive pulmonary disease. Previous stress test done about 7 months ago did not reveal any abnormalities. Troponin is always chronically elevated. He does have a history of cardiomyopathy also. Continue the present care as ordered. Monitor the heart rate and blood pressure very closely. If he has recurrent chest pain and we do not have a choice other than proceeding with another stress test or cardiac catheterization, intensify the medical regimen and we will follow up. FILIPE COLEMAN MD CM:PNTRANS [id number] FILIPE COLEMAN MD 05/13/17 0809 interface
--- NOTE | ~2017-05-10 | EKG ---
[place], [place] ELECTROCARDIOGRAM REPORT NAME: MERNA ABARCA UNIT #: [id number] ROOM: 404 DOCTOR: SERINA BAIG MD BIRTHDATE: [birth year] DOS: 05/13/2017 TIME: 0926 hours. FINDINGS: 1. Sinus tachycardia at 104 beats per minute. 2. Complete left bundle-branch block. 3. Nonspecific T wave changes in lateral leads, probably from bundle-branch block. 4. An abnormal ECG. SERINA BAIG MD CM:EKGRPT:ELECTROCARDIOGRAM REPORT 1129 1150 SERINA BAIG MD
--- NOTE | ~2017-05-10 | WRIGHTHP ---
[place], [place] PATIENT HISTORY AND PHYSICAL EXAM [id number] #: [id number] ROOM: 404 DOCTOR: JAVID PARRA MD BIRTHDATE: [birth year] DOS: 05/10/2017 HISTORY OF PRESENT ILLNESS: The patient has been admitted to the hospital as an emergency admission. He came to Emergency Department yesterday as he was feeling difficulty in breathing with some chest discomfort. He tried to take aerosol treatment at home, but not was getting better as he is a known case of COPD and so he came to Emergency Department from where he is admitted to the hospital with acute difficulty in breathing and with chest pain. He denies any sweating. No nausea, no vomiting. PAST MEDICAL HISTORY: He has history of CEFAZOLIN allergy. The patient has past history of acute on chronic renal failure, acute dyspnea, anxiety, coronary heart disease, cardiomyopathy, chest pain. He has moderate acute coronary syndrome, COPD with exacerbation, depression, dermatitis, diabetes mellitus, emphysema, hypertension, GERD, hyperlipidemia. The patient has past history of bilateral knee replacement, history of colon resection, history of colostomy reversal, appendectomy and CABG. The patient does not drink any alcohol, does not use any illicit drugs and he used to smoke before, 3 packs per day for 30 years, but quit about 25 years ago. FAMILY HISTORY: Father at age 70 of cancer of the prostate. Mother at 86 of heart failure. PHYSICAL EXAMINATION: VITAL SIGNS: The patient is 6 feet 5 inch tall, weighing 235 pounds, body mass is 27.6. He seems quite comfortable, not in any distress. Blood pressure 160/51, pulse 76, respirations 19, temperature 97.8. HEENT: ENT unremarkable. NECK: No glandular enlarged neck. Trachea is central. Neck veins are not distended. HEART: Regular, no murmur or thrills. LUNGS: Showing some increased expiration. No crepitation. ABDOMEN: Soft. Liver and spleen not palpable. No area of tenderness. No mass palpable. EXTREMITIES: No edema of leg. The patient has been seen by Dr. Alex, saw handle assembler and according to him, the patient's ECG demonstrated normal sinus rhythm with an intraventricular conduction defect, probably left bundle branch block, QS in V1-3 probably from the intraventricular conduction defect or could reflect an old anterior wall myocardial infarction. Chest x-ray done in the ER demonstrated minimal streaky appearance in the left base representing an atelectasis or edema and his troponin level was slightly elevated to 2.48, repeat showed 2.47 and so, it is little bit elevated. So, according to his opinion, the patient is having chronic obstructive pulmonary disease with acute excerebration, which causes shortness of breath and that is being treated. Coronary artery disease status post remote coronary artery bypass graft and stent. He had essentially negative Cardiolite study since 2 months ago and did not have any chest pain or [place], [place] PATIENT HISTORY AND PHYSICAL EXAM NAME: MERNA ABARCA UNIT #: [id number] ROOM: 404 DOCTOR: JAVID PARRA MD BIRTHDATE: [birth year] heaviness, slightly increased troponin level which appears to be chronic as it is elevated from the last September as well and so, he does not think that this problem was due to cardiac origin, but due to acute excerebration of COPD. DIAGNOSES: Acute difficulty in breathing with acute exacerbation of chronic obstructive pulmonary disease with emphysema with ____, hypertension, hyperlipidemia, status post coronary bypass, cardiomyopathy, depression, coronary heart disease, chronic renal failure, and acute difficulty in breathing with chest pain. PLAN OF TREATMENT: The patient will be admitted to the hospital. He will be started on his medication, which he was taking before, which is metoprolol 50 mg daily, isosorbide mononitrate 60 mg daily, Plavix 75 mg daily, aspirin 325 mg daily, insulin 70/40 units twice daily, metformin 1 gram twice daily, albuterol sulfate 2.5 mg daily, Symbicort 2 puffs twice daily, benzonatate 200 mg 3 times daily, aerosol treatment with albuterol and ____ every 6 hours p.r.n., serial EKG and isoenzymes and has already been seen by saw handle assembler. JAVID PARRA MD CM:HISPHYS:PATIENT HISTORY AND PHYSICAL EXAMINATION 1009 1142 JAVID PARRA MD 05/11/17 1212 interface
--- NOTE | ~2017-05-10 | EKG ---
[place], [place] ELECTROCARDIOGRAM REPORT NAME: MERNA ABARCA UNIT #: [id number] ROOM: 404 DOCTOR: SERINA BAIG MD BIRTHDATE: [birth year] DOS: 05/13/2017 TIME: 1546 hours. IMPRESSION: 1. Normal sinus rhythm at 83 beats per minute. 2. Complete left bundle-branch block. 3. Abnormal ECG. 4. No previous tracing is available for comparison. SERINA BAIG MD CM:EKGRPT:ELECTROCARDIOGRAM REPORT 1134 1159 SERINA BAIG MD
--- NOTE | ~2017-05-10 | EKG ---
[place], [place] ELECTROCARDIOGRAM REPORT NAME: MERNA ABARCA UNIT #: [id number] ROOM: 404 DOCTOR: SERINA BAIG MD BIRTHDATE: [birth year] DOS: 05/13/2017 TIME: 1838 hours. FINDINGS: 1. Normal sinus rhythm at 83 beats per minute. 2. First degree heart block. 3. Complete left bundle-branch block. 4. An abnormal ECG. 5. No significant change from an ECG done a few hours earlier. SERINA BAIG MD CM:EKGRPT:ELECTROCARDIOGRAM REPORT 1131 1201 SERINA BAIG MD
--- NOTE | ~2017-05-10 | CON ---
[place], [place] REPORT OF CONSULTATION NAME: MERNA ABARCA UNIT #: [id number] ROOM: 404 DOCTOR: SERINA BAIG MD BIRTHDATE: [birth year] DOS: 05/11/2017 HISTORY OF PRESENT ILLNESS: This is a 71-year-old -[place] man with a history of coronary artery disease. He has 3-vessel coronary artery bypass graft surgery in the remote past and has had several stents deployed by me, Dr. Stanley and Dr. Coleman. He has COPD, hyperlipidemia, GERD and some anxiety disorder as well. He has never had congestive heart failure, but does have diabetes mellitus. He had a stress test last summer when he presented with the chest pain. He has had knee replacements, colon resection with reversal of colostomy, appendectomy. He does not drink nor does he smoke cigarettes, but he quit smoking quite a few years ago and was a very heavy smoker. Mother had heart failure and father had prostate cancer. He woke up yesterday morning because of shortness of breath. Shortness of breath was quite significant and he took 3 different type of inhalers with very little benefit and came to the Emergency Department. He did not have any chest heaviness, pressure in the chest and jaw discomfort or any back pain, did not have any palpitations. He was lightheaded and a couple of times, he felt he may pass out, but did not. He was standing at the time, he had no sweating, no nausea, has not had any abdominal pain or blood in the stools. HOME MEDICATIONS: Albuterol/HFA inhaler, Symbicort inhaler and Spiriva. He takes aspirin 325 mg daily; clopidogrel 75 mg daily; Imdur 60 mg q.a.m.; metformin 1 gram daily; Incruse Ellipta 1 puff daily; metoprolol 50 mg daily; NovoLog mix 70/30, 40 units b.i.d. SOCIAL HISTORY: He does not seem to be on a statin drug. PHYSICAL EXAMINATION: GENERAL: Reveals a patient who is very comfortable. He is very tall, healthy looking. He looks younger than his age. He is not anemic. There is no thyromegaly or finger clubbing. VITAL SIGNS: Pulse is regular at 76, blood pressure 116/51. NECK: Normal JVP. There is no carotid bruit. HEART: There is no cardiomegaly. Cardiac auscultation reveals no rub. There is an early systolic murmur over the apex. Pedal pulses are easily appreciated. EXTREMITIES: There is no edema in the lower extremities. RESPIRATORY: He is not tachypneic. Percussion note reveals mild hyperresonance. Auscultation reveals modestly diminished breath sounds with crackles in both lungs, more so on the left side. ABDOMEN: Scars are noted. It is supple, nontender. Liver is not enlarged. There is no bruit. DIAGNOSTIC STUDIES: An ECG demonstrated normal sinus rhythm with an intraventricular conduction defect, probably left bundle branch block, QS in V1-V3, probably from the intraventricular conduction defect or could reflect an old anterior wall MT. DIAGNOSTIC DATA: Chest x-ray done in the ER demonstrated a minimal streaky appearance in the left base representing atelectasis, no edema. [place], [place] REPORT OF CONSULTATION NAME: MERNA ABARCA UNIT #: [id number] ROOM: [facility] DOCTOR: SERINA BAIG MD BIRTHDATE: [birth year] LABORATORY DATA: Troponin levels were 0.248 and 0.247. In September of last year, his troponin level was 0.15. At that time, a stress test demonstrated an EF of 51% and no ischemia. Electrolytes were normal. Renal function was also normal. IMPRESSION: 1. This patient with chronic obstructive pulmonary disease had acute exacerbation, which cause shortness of breath and that is being treated. 2. Coronary artery disease, status post remote coronary artery bypass graft and stents. He had an essentially negative Cardiolite study since 7 months ago and did not have any chest pain or heaviness, slightly increased troponin I level which appears to be chronic as it was elevated last September as well. I do not see any reason to perform any further cardiac workup. He should be ambulated and he feels reasonably asymptomatic, may be discharged home. I thank you on behalf of Dr. Coleman for this consult. SERINA BAIG MD CM:CONSTR:REPORT OF CONSULTATION 0551 05/11/17 0919 interface FILIPE COLEMAN MD
--- NOTE | ~2017-05-10 | EKG ---
[place], [place] ELECTROCARDIOGRAM REPORT NAME: MERNA ABARCA UNIT #: [id number] ROOM: 404 DOCTOR: SERINA BAIG MD BIRTHDATE: [birth year] DOS: 05/13/2017 TIME: 1241 hours. FINDINGS: 1. Normal sinus rhythm at 74 beats per minute. 2. First degree heart block. 3. Complete left bundle-branch block with T-wave abnormality in lateral leads. 4. An abnormal ECG. 5. When compared with an ECG done a few hours earlier, ST segment depression in lateral chest is improved, as has heart rate. SERINA BAIG MD CM:EKGRPT:ELECTROCARDIOGRAM REPORT 1129 1155 SERINA BAIG MD
[~2017-05-10 10:34] MED LIST changes: +METFORMIN HCL1000 MG PO
[2017-05-10] MEDS ORDERED: ASPIRIN325 M2 PO (10:43)
[2017-05-10] MEDS ORDERED: PROVENTIL HFA6.7 GM INH (10:43)
[2017-05-10 11:11] LABS: BASO % 0.7 % (0.0-1.0); EOS # 0.1 10*3/uL (0.0-0.4); EOS % 2.7 % (1.0-4.0); HEMATOCRIT 39.9 % (42.0-52.0); HEMOGLOBIN 13.1 g/dl (14.0-18.0); LYMPH # 0.8 10*3/uL (1.3-4.4); MEAN CELL VOLUME 84.2 fl (80.0-94.0); MEAN CORPUSCULAR HGB 27.6 pg (27.0-31.0); MEAN CORPUSCULAR HGB CONC 32.8 g/dl (33.0-37.0); MEAN PLATELET VOLUME 9.8 fl (9.6-12.3); MONO # 0.4 10*3/uL (0.1-1.0); MONO % 8.7 % (3.0-9.0); NEUT # 3.2 10*3/uL (2.3-7.9); NEUT % 70.5 % (47.0-73.0); PLATELET COUNT AUTOMATED 196 10*3/uL (130-400); RED BLOOD COUNT 4.74 10*6/uL (4.50-5.90); RED CELL DISTRI WIDTH 14.4 % (0-14.5); WHITE BLOOD COUNT 4.5 10*3/uL (4.8-10.8)
[2017-05-10 11:25] LABS: ALBUMIN 3.6 gm/dl (3.1-4.5); ALKALINE PHOSPHATASE 53 U/L (45-117); BUN 19 mg/dl (7-24); CHLORIDE 104 mmol/L (98-107); CREATININE 1.18 mg/dL (0.70-1.30); POTASSIUM 3.9 mmol/L (3.5-5.1); SGOT/AST 22 IU/L (3-35); SGPT/ALT 26 U/L (12-78); SODIUM 139 mmol/L (136-145); TOTAL PROTEIN 6.9 gm/dL (6.4-8.2)
[2017-05-10 11:34] LABS: TROPONIN I 0.277 ng/ml (<0.045)
[2017-05-10] MEDS ORDERED: INCRUSE ELLI62.5 MCG INH (17:14)
[2017-05-10] MEDS ORDERED: SYMB160 INH (17:15)
[2017-05-11] VITALS: BP 116/51
[2017-05-11 08:00] VITALS: BP 116/68
[2017-05-11 12:00] VITALS: BP 114/80
[2017-05-11 16:00] VITALS: BP 98/72
[2017-05-11 20:00] VITALS: BP 103/67
[2017-05-12] VITALS: BP 97/81
[2017-05-12 08:00] VITALS: BP 98/57
[2017-05-12 12:53] LABS: BASO % 0.5 % (0.0-1.0); EOS # 0.2 10*3/uL (0.0-0.4); EOS % 2.6 % (1.0-4.0); HEMOGLOBIN 12.3 g/dl (14.0-18.0); LYMPH # 1.1 10*3/uL (1.3-4.4); LYMPH % 19.3 % (27.0-41.0); MEAN CELL VOLUME 86.2 fl (80.0-94.0); MEAN CORPUSCULAR HGB 27.9 pg (27.0-31.0); MEAN CORPUSCULAR HGB CONC 32.4 g/dl (33.0-37.0); MEAN PLATELET VOLUME 9.6 fl (9.6-12.3); MONO # 0.6 10*3/uL (0.1-1.0); MONO % 10.2 % (3.0-9.0); NEUT # 3.9 10*3/uL (2.3-7.9); NEUT % 67.2 % (47.0-73.0); PLATELET COUNT AUTOMATED 218 10*3/uL (130-400); RED BLOOD COUNT 4.41 10*6/uL (4.50-5.90); RED CELL DISTRI WIDTH 14.8 % (0-14.5); WHITE BLOOD COUNT 5.8 10*3/uL (4.8-10.8)
[2017-05-12 13:18] LABS: ALBUMIN 3.8 gm/dl (3.1-4.5); ALKALINE PHOSPHATASE 48 U/L (45-117); BUN 20 mg/dl (7-24); CHLORIDE 106 mmol/L (98-107); CREATININE 1.21 mg/dL (0.70-1.30); POTASSIUM 4.3 mmol/L (3.5-5.1); SGOT/AST 20 IU/L (3-35); SGPT/ALT 23 U/L (12-78); SODIUM 140 mmol/L (136-145); TOTAL PROTEIN 7.4 gm/dL (6.4-8.2)
[2017-05-12 16:00] VITALS: BP 122/60
[2017-05-12 20:01] VITALS: BP 123/70
[2017-05-13] VITALS: BP 122/76
[2017-05-13 07:26] LABS: BASO % 0.1 % (0.0-1.0); HEMOGLOBIN 12.1 g/dl (14.0-18.0); LYMPH # 0.5 10*3/uL (1.3-4.4); LYMPH % 5.6 % (27.0-41.0); MEAN CELL VOLUME 83.9 fl (80.0-94.0); MEAN CORPUSCULAR HGB 27.4 pg (27.0-31.0); MEAN CORPUSCULAR HGB CONC 32.7 g/dl (33.0-37.0); MEAN PLATELET VOLUME 9.7 fl (9.6-12.3); MONO # 0.4 10*3/uL (0.1-1.0); MONO % 4.2 % (3.0-9.0); NEUT # 8.5 10*3/uL (2.3-7.9); NEUT % 89.4 % (47.0-73.0); PLATELET COUNT AUTOMATED 208 10*3/uL (130-400); RED BLOOD COUNT 4.41 10*6/uL (4.50-5.90); RED CELL DISTRI WIDTH 14.7 % (0-14.5); WHITE BLOOD COUNT 9.5 10*3/uL (4.8-10.8)
[2017-05-13 07:56] LABS: BUN 24 mg/dl (7-24); CHLORIDE 106 mmol/L (98-107); PHOSPHOROUS 2.7 mg/dL (2.5-4.9); POTASSIUM 4.3 mmol/L (3.5-5.1); SODIUM 137 mmol/L (136-145)
[2017-05-13 08:00] VITALS: BP 121/83
[2017-05-13 09:59] LABS: ALBUMIN 3.9 gm/dl (3.1-4.5); ALKALINE PHOSPHATASE 48 U/L (45-117); BUN 25 mg/dl (7-24); CHLORIDE 105 mmol/L (98-107); CREATININE 1.33 mg/dL (0.70-1.30); POTASSIUM 4.3 mmol/L (3.5-5.1); SGOT/AST 16 IU/L (3-35); SGPT/ALT 25 U/L (12-78); SODIUM 136 mmol/L (136-145); TOTAL PROTEIN 7.7 gm/dL (6.4-8.2)
[2017-05-13 12:00] VITALS: BP 97/62
[2017-05-13 16:00] VITALS: BP 117/88
[2017-05-13 20:00] VITALS: BP 106/65
[2017-05-14] VITALS: BP 118/79
[2017-05-14 08:00] VITALS: BP 103/59
[2017-05-14 12:00] VITALS: BP 100/51
[2017-05-14] MEDS ORDERED: LEVOFLOXACIN500 MG PO (14:34)
[2017-05-14] MEDS ORDERED: PREDNISONE10 MG PO (14:34)
[2017-05-14] MEDS ORDERED: MUCINEX ER600 MG PO (14:34)
== END 2017-05-14 15:40 | disposition home or self-care (01) | DRG 871 ==
LOC: ED 10:34 → EDHOLD 16:50 → 4E 16:50
PROVIDERS: Internal Medicine; Nurse Practitioner Family
DX: A41.9 Sepsis, unspecified organism (principal); I21.A1 Myocardial infarction type 2; E87.2 Acidosis; I95.9 Hypotension, unspecified; E11.65 Type 2 diabetes mellitus with hyperglycemia; E11.22 Type 2 diabetes mellitus with diabetic chronic kidney disease; I13.0 Hypertensive heart and chronic kidney disease with heart failure and stage 1 through stage 4 chronic kidney disease, or unspecified chronic kidney disease; I42.9 Cardiomyopathy, unspecified; I50.9 Heart failure, unspecified; F33.9 Major depressive disorder, recurrent, unspecified; J44.1 Chronic obstructive pulmonary disease with (acute) exacerbation; D64.9 Anemia, unspecified; N18.9 Chronic kidney disease, unspecified; I25.118 Atherosclerotic heart disease of native coronary artery with other forms of angina pectoris; K59.00 Constipation, unspecified; K21.9 Gastro-esophageal reflux disease without esophagitis; F41.9 Anxiety disorder, unspecified; Z96.653 Presence of artificial knee joint, bilateral; E78.5 Hyperlipidemia, unspecified; Z79.4 Long term (current) use of insulin; Z87.891 Personal history of nicotine dependence; Z88.8 Allergy status to other drugs, medicaments and biological substances; Z79.82 Long term (current) use of aspirin; Z79.84 Long term (current) use of oral hypoglycemic drugs; Z79.899 Other long term (current) drug therapy; Z90.49 Acquired absence of other specified parts of digestive tract; Z95.1 Presence of aortocoronary bypass graft; Z80.42 Family history of malignant neoplasm of prostate; Z82.49 Family history of ischemic heart disease and other diseases of the circulatory system

== ENCOUNTER 2017-05-19 12:40 | Inpatient (IN) | payer MEDICARE ==
[~2017-05-19] VITALS: Ht 195.6 cm; Wt 103.4 kg
--- NOTE | ~2017-05-19 | PR ---
[place], [place] PROGRESS NOTE NAME: [id number] UNIT #: [id number] ROOM: 507 DOCTOR: SERINA BAIG MD BIRTHDATE: [birth year] DOS: 05/22/2017 SUBJECTIVE: This is a Dr. Walsh's patient. He has severe coronary artery disease and severe ischemic cardiomyopathy. He had an LV ejection fraction of 30% to 35% in September 2016 and in October 2016. LVEF was 20% to 25%. He presented to this hospital about a week or so ago and at that time an echocardiogram was read by Dr. Walsh which showed an EF of 15% to 20% with dilated left ventricle, 4 days later, he had a Lexiscan Cardiolite study done, which demonstrated severely dilated left ventricle with volume of greater than 300 mL and EF of 48%. I believe the Gated SPECT imaging that determine EF of 48% is fraud and most likely is inaccurate, therefore should not be considered in clinical decision making. He had 8 seconds of monomorphic ventricular tachycardia with heart rate of about 140 beats per minute. With this above information, the patient was recommended a LifeVest and his beta jose l is being increased and ARB dose is also being increased and we will follow up with Dr. Walsh in the next few weeks and he probably will end up with an AICD. SERINA BAIG MD CM:PNTRANS 1206 1331 SERINA BAIG MD 05/22/17 1330 interface
--- NOTE | ~2017-05-19 | EKG ---
[place], [place] ELECTROCARDIOGRAM REPORT NAME: MERNA ABARCA UNIT #: [id number] ROOM: 507 DOCTOR: SERINA BAIG MD BIRTHDATE: [birth year] DOS: 05/20/2017 TIME: 0130 hours. Normal sinus rhythm with PAC, rate 73 beats per minute. Probably complete left bundle branch block. Possibility of old anterior wall WI should be considered. No significant change from an ECG of the previous day. 1843 hours: Normal sinus rhythm with PACs, rate 81 beats per minute. Unifocal PVCs are noted. First-degree heart block. An old anterior wall myocardial infarction. An abnormal ECG. No previous tracing is available for comparison. SERINA BAIG MD CM:EKGRPT:ELECTROCARDIOGRAM REPORT 1652 22 SERINA BAIG MD
--- NOTE | ~2017-05-19 | EKG ---
[place], [place] ELECTROCARDIOGRAM REPORT NAME: MERNA ABARCA UNIT #: [id number] ROOM: 507 DOCTOR: DALJIT ARAUJO MD BIRTHDATE: [birth year] DOS: 05/23/2017 TIME: 8:23:49 RATE AND RHYTHM: Normal sinus rhythm at 70 beats per minute. MS interval at 233 milliseconds, QRS duration 99 milliseconds, corrected QT interval 441 milliseconds, QRS axis is 84. IMPRESSION: 1. Normal sinus rhythm. 2. Prolonged MS interval. 3. First degree AV block. 4. Otherwise, normal EKG. DALJIT ARAUJO MD CM:EKGRPT:ELECTROCARDIOGRAM REPORT 1015 1234 DALJIT ARAUJO MD
--- NOTE | ~2017-05-19 | CON ---
[place], [place] REPORT OF CONSULTATION NAME: MERNA ABARCA UNIT #: [id number] ROOM: 507 DOCTOR: GIOVANI COLEMAN MDHISH BIRTHDATE: [birth year] DOS: 05/20/2017 HISTORY OF PRESENT ILLNESS: The patient is very well known to me with a known history of ischemic cardiomyopathy. The patient was recently in the hospital. We did an echocardiogram, which showed an ejection fraction about 20%. He had a stress test in September showed a large fixed defect without any reversibility. The patient admitted with significant shortness of breath. I was called in the middle of the night, saying that there is ST elevation in the inferior leads as the computer reading was seen, but I review the EKG ____ there was absolutely no ST elevation. He has interventricular conduction delay of an incomplete left bundle branch pattern with poor R-wave progression. The patient did not have any chest discomfort when this event happened, totally asymptomatic. I discussed with the residents in detail. Echocardiogram showed an ejection fraction of about 15-20%. The patient came in with increasing shortness of breath and the patient was told about the need for possibility of an ICD, and the patient is hesitant and does not want to have that. PAST MEDICAL HISTORY: Significant for coronary artery disease, cardiomyopathy, COPD, diabetes, emphysema, and previous myocardial infarction. PAST SURGICAL HISTORY: Colon resection, colostomy, appendectomy, and history of CABG. SOCIAL HISTORY: Does not drink or use drugs. Former smoker. FAMILY HISTORY: Positive for coronary artery disease. HOME MEDICATIONS: Aspirin, clopidogrel, insulin, isosorbide and metoprolol. REVIEW OF SYSTEMS: CONSTITUTIONAL: No fever, no chills. HEENT: No visual disturbances, hearing problems. CARDIOVASCULAR: Had some sharp chest discomfort, but now he is totally pain free. RESPIRATORY: Does have dyspnea on exertion. GASTROINTESTINAL: No nausea, no vomiting. GENITOURINARY: No dysuria. NEUROLOGIC: Stable. PHYSICAL EXAMINATION: VITAL SIGNS: Blood pressure is 130/70. He is in sinus rhythm. NECK: Supple, elevated JVD. LUNGS: Diminished breath sounds. HEART: Sounds are regular. ABDOMEN: Soft, nontender, and there is an S3 gallop present. EXTREMITIES: Intact pulses. LABORATORY DATA: Electrolytes are normal. Creatinine is 1.4. Troponin is 0.051. INR is 1.0. Hemoglobin 11.7, and hematocrit 35.2. EKG normal sinus rhythm, no ST elevation as told in the inferior leads. Interventricular [place], [place] REPORT OF CONSULTATION NAME: MERNA ABARCA UNIT #: [id number] ROOM: [facility] DOCTOR: FILIPE COLEMAN MD BIRTHDATE: [birth year] conduction delay with incomplete left bundle pattern with poor R-wave progression with nonspecific ST-T changes. His BNP has not been done, which we are going to get it. IMPRESSION: Probable acute on chronic systolic congestive heart failure, atypical chest discomfort, cardiomyopathy, renal insufficiency, hypertension, diabetes, hyperlipidemia and chronic obstructive pulmonary disease. RECOMMENDATIONS: Agree with continuing the Rocephin, Zithromax and steroids. Continue IV diuresis. Strict I's and O's. Monitor the heart rate and blood pressure very closely. Consideration should be given to do a repeat stress test in the morning because the ejection fraction has come down. Monitor the heart rate closely. Strict I's and O's and if he has recurrent chest discomfort, we will proceed with a right and left heart catheterization. The patient was told the probable BiV ICD. The patient is extremely hesitant and he does not want to have at this point. Discussed with Dr. Downing in detail. I will agree to go ahead and do the stress test in the morning. Add a very small dose of an ARB like losartan 25 mg and monitor the renal function and I will follow up. FILIPE COLEMAN MD CM:CONSTR:REPORT OF CONSULTATION 05/20/1713 interface
[~2017-05-19 12:40] MED LIST changes: +ASPIRIN325 M2 PO; +INCRUSE ELLI62.5 MCG INH; +LEVOFLOXACIN500 MG PO; +PROVENTIL HFA6.7 GM INH; +SYMB160 INH
[2017-05-19 12:55] VITALS: BP 122/73
[2017-05-19 13:04] LABS: ACT PARTIAL THROMBO TIME 22.9 SECONDS (20.8-31.5)
[2017-05-19 13:11] LABS: ALBUMIN 3.6 gm/dl (3.1-4.5); CREATININE 1.46 mg/dL (0.70-1.30); POTASSIUM 4.2 mmol/L (3.5-5.1); TOTAL PROTEIN 6.8 gm/dL (6.4-8.2)
[2017-05-19 13:14] LABS: TROPONIN I 0.051 ng/ml (<0.045)
[2017-05-19 13:44] LABS: BASO % 0.1 % (0.0-1.0); EOS % 0.1 % (1.0-4.0); HEMATOCRIT 35.2 % (42.0-52.0); HEMOGLOBIN 11.7 g/dl (14.0-18.0); LYMPH # 0.6 10*3/uL (1.3-4.4); LYMPH % 6.3 % (27.0-41.0); MEAN CELL VOLUME 83.8 fl (80.0-94.0); MEAN CORPUSCULAR HGB 27.9 pg (27.0-31.0); MEAN CORPUSCULAR HGB CONC 33.2 g/dl (33.0-37.0); MONO # 0.4 10*3/uL (0.1-1.0); NEUT # 7.7 10*3/uL (2.3-7.9); NEUT % 88.9 % (47.0-73.0); PLATELET COUNT AUTOMATED 249 10*3/uL (130-400); RED CELL DISTRI WIDTH 15.1 % (0-14.5); WHITE BLOOD COUNT 8.7 10*3/uL (4.8-10.8)
[2017-05-19 14:15] VITALS: BP 129/84
[2017-05-19 15:16] VITALS: BP 132/78
[2017-05-19 16:59] VITALS: BP 138/78
[2017-05-19 17:25] VITALS: BP 108/62
[2017-05-19 20:00] VITALS: BP 110/47
[2017-05-20] VITALS: BP 112/82
[2017-05-20 08:00] VITALS: BP 116/76
[2017-05-20 12:00] VITALS: BP 131/72
[2017-05-20 16:00] VITALS: BP 123/73
[2017-05-20 20:00] VITALS: BP 124/59
[2017-05-21] VITALS: BP 107/48
[2017-05-21 04:00] VITALS: BP 102/60
[2017-05-21 08:00] VITALS: BP 128/64
[2017-05-21 12:00] VITALS: BP 117/60
[2017-05-21 16:00] VITALS: BP 105/63
[2017-05-21 20:12] VITALS: BP 115/52
[2017-05-22] VITALS: BP 100/49
[2017-05-22 08:00] VITALS: BP 108/60; BP 121/60
[2017-05-22 12:00] VITALS: BP 103/51
[2017-05-22 16:00] VITALS: BP 111/60
[2017-05-22 20:00] VITALS: BP 104/44
[2017-05-23] VITALS: BP 113/64
[2017-05-23 08:00] VITALS: BP 123/77
[2017-05-23 12:00] VITALS: BP 106/61
[2017-05-23 16:00] VITALS: BP 133/74
== END 2017-05-23 18:37 | disposition left against medical advice (07) | DRG 191 ==
LOC: ED 12:40 → EDHOLD 15:21 → 5E 15:21
PROVIDERS: Emergency Medicine
PROC: 4A02XM4 Measurement of Cardiac Total Activity, External Approach (ICD-10-PCS; principal; 2017-05-21)
PROC: 3E073KZ Introduction of Other Diagnostic Substance into Coronary Artery, Percutaneous Approach (ICD-10-PCS; principal; 2017-05-21)
DX: J44.1 Chronic obstructive pulmonary disease with (acute) exacerbation (principal); N17.9 Acute kidney failure, unspecified; E11.22 Type 2 diabetes mellitus with diabetic chronic kidney disease; E11.65 Type 2 diabetes mellitus with hyperglycemia; I13.0 Hypertensive heart and chronic kidney disease with heart failure and stage 1 through stage 4 chronic kidney disease, or unspecified chronic kidney disease; Z79.82 Long term (current) use of aspirin; I25.10 Atherosclerotic heart disease of native coronary artery without angina pectoris; D64.9 Anemia, unspecified; I25.5 Ischemic cardiomyopathy; K21.9 Gastro-esophageal reflux disease without esophagitis; D72.810 Lymphocytopenia; D72.818 Other decreased white blood cell count; N18.9 Chronic kidney disease, unspecified; K59.00 Constipation, unspecified; I50.9 Heart failure, unspecified; E78.5 Hyperlipidemia, unspecified; F41.9 Anxiety disorder, unspecified; Z53.21 Procedure and treatment not carried out due to patient leaving prior to being seen by health care provider; Z60.2 Problems related to living alone; F32.9 Major depressive disorder, single episode, unspecified; Z96.653 Presence of artificial knee joint, bilateral; K08.409 Partial loss of teeth, unspecified cause, unspecified class; Z79.899 Other long term (current) drug therapy; I25.2 Old myocardial infarction; Z82.49 Family history of ischemic heart disease and other diseases of the circulatory system; Z90.49 Acquired absence of other specified parts of digestive tract; Z93.3 Colostomy status; Z95.1 Presence of aortocoronary bypass graft; Z87.891 Personal history of nicotine dependence; Z80.42 Family history of malignant neoplasm of prostate; Z88.8 Allergy status to other drugs, medicaments and biological substances; Z79.4 Long term (current) use of insulin

== ENCOUNTER 2017-06-21 11:57 | Inpatient (IN) | payer MEDICARE ==
[2017-06-21] VITALS (15 sets, daily range): BP systolic 94–125; BP diastolic 44–85
[~2017-06-21] VITALS: Ht 195.6 cm; Wt 102.2 kg
--- NOTE | ~2017-06-21 | PR ---
[place], [place] PROGRESS NOTE NAME: MERNA ABARCA UNIT #: [id number] ROOM: [facility]- DOCTOR: FIDEL GILL,JAVID Arrieta BIRTHDATE: [birth year] DOS: SUBJECTIVE: The patient has been admitted to hospital with chest pain, with difficulty in breathing. He had also lower GI bleeding with positive occult blood and he is also having cardiomyopathy with poor ejection fraction of only 20%. He had received 3 units of blood transfusion yesterday and with that patient is feeling better. He denies any chest pain. No difficulty in breathing. His basic metabolic profile shows BUN 28, creatinine 1.34, GFR 52, indicating he is having chronic renal failure. His CBC showed white count 7800, hemoglobin 10, hematocrit 36.6. This has improved very much from hemoglobin of 7.9. His ____ was negative, so that is good thing. He denies any pain in his abdomen. OBJECTIVE: VITAL SIGNS: Blood pressure is 112/58, pulse 74, respirations ____, temperature 97.9. CHEST: Clear. HEART: Regular. ABDOMEN: Soft. JAVID PARRA MD CM:PNTRANS 1036 1127 JAVID PARRA MD 06/22/17 1125 interface
--- NOTE | ~2017-06-21 | PR ---
[place], [place] PROGRESS NOTE NAME: MERNA ABARCA UNIT #: [id number] ROOM: 428 DOCTOR: FILIPE COLEMAN MD BIRTHDATE: [birth year] DOS: 06/24/2017 SUBJECTIVE: The patient's clinical condition appears to be stable. The patient is seen by GI. REVIEW OF SYSTEMS: Unremarkable. 68 symptoms reviewed. OBJECTIVE: VITAL SIGNS: Blood pressure is 108/71. He is in sinus rhythm. NECK: Supple. No JVD. LUNGS: Clear. HEART: Sounds are regular. NEUROLOGIC: Stable. LABORATORY DATA: H and H is pending. The patient received 3 units of blood and the last hemoglobin and hematocrit are 9.7 and 29.8. Aspirin is on hold. IMPRESSION: The patient with severe anemia, probable gastrointestinal bleed. Severe cardiomyopathy, history of systolic heart failure, hypertension, hyperlipidemia, and recent stent placement. RECOMMENDATIONS: As per GI, continue the present care. Should be on a baby aspirin as soon as feasible. Monitor the H and H closely. Continue Plavix and we will follow up. FILIPE COLEMAN MD CM:PNTRANS 0706 [id number] FILIPE COLEMAN MD 06/24/17 0748 interface
--- NOTE | ~2017-06-21 | CON ---
[place], [place] REPORT OF CONSULTATION NAME: MERNA ABARCA UNIT #: [id number] ROOM: [facility] DO[facility] [birth year] DOS: 06/21/2017 CARDIOLOGY CONSULTATION Covering for cardiology, seen over the weekend. HISTORY OF PRESENT ILLNESS: The patient is a 71-year-old male came in with a previous history of coronary artery disease, coronary stenting recently by Dr. Walsh and surround acute GI bleeding, hence he stopped the aspirin and only continued the Plavix because of the recent coronary stenting, drug-eluting. The patient has history of chronic obstructive pulmonary disease. The patient is very concerned, but not symptomatic with cardiovascular status. The patient is worried that he is bleeding at the stent site. I reassure him that he is not bleeding at the stent site start ____ GI bleeding and the patient appears to be calmed down. The GI is following the patient. The patient has previously denied any chest discomfort. No syncope or presyncope. PAST SURGICAL HISTORY: History of chronic kidney disease, anxiety, coronary stenting, history of cardiomyopathy, chronic kidney disease, chronic obstructive pulmonary disease, diabetes mellitus, emphysema of the lungs, and hypertension. PAST SURGICAL HISTORY: The patient has a history of coronary bypass surgery. SOCIAL HISTORY: No alcohol, drug or tobacco use. History of smoking in the past, not recently. FAMILY HISTORY: Prostate cancer and heart failure. Mother has heart failure. Father has prostate cancer. ALLERGIES: ALLERGIC TO CEFAZOLIN. PHYSICAL EXAMINATION: VITAL SIGNS: Stable. Blood pressure 132/78 and afebrile. Heart rate is 94 and pulse ox is good. GENERAL: Alert, not in any acute distress. NECK: No jugular venous distention noted. No carotid bruits RECTAL, GENITAL, AND BREAST EXAM: Deferred unrelated. LABORATORY DATA: Initial enzymes were unremarkable. INR is normal. Hemoglobin is 11.7. Electrolytes are within normal limits. Minimal elevation of troponin could be due to chronic disease and GI bleed. I do not think it is an acute coronary syndrome clinically. No acute changes noted in the EKG. Not critical evaluation. DIAGNOSES: Elevated troponin, probably related to the chronic kidney disease and gastrointestinal bleed. PLAN: The patient is getting the transfusion and planned conservative management. Hold the aspirin. Continue the Plavix because of recent drug-eluting stenting. [place], [place] REPORT OF CONSULTATION NAME: MERNA ABARCA UNIT #: [id number] ROOM: [facility] DOCTOR: SHER GILL [facility] BIRTHDATE: [birth year] Thank you very much for asking us to see the patient. Dr. Walsh will follow the patient. LESIA OLIVAREZ MD CM:CONSTR:REPORT OF CONSULTATION 0847 06/22/17 1035 interface DALJIT ARAUJO MD
--- NOTE | ~2017-06-21 | WRIGHTHP ---
[place], [place] PATIENT HISTORY AND PHYSICAL EXAM [id number] UNIT #: [id number] ROOM: [facility] DOCTOR: JAVID PARRA MD BIRTHDATE: [birth year] DOS: 06/21/2017 HISTORY OF PRESENT ILLNESS: The patient has been admitted to hospital on June 21 from Emergency Department where he came to the Emergency Department with history of difficulty in breathing and some cough. He has history of ischemic cardiomyopathy with ejection fraction of 20% and recently had stent placed in [facility], presenting to the Emergency Department with shortness of breath and chest pain. He woke at 7:00 this morning with very short breath. He was not feeling better, so he came to Emergency Department after he had taken 3 rounds of sublingual nitroglycerin, was not feeling better and from there he is being admitted to the hospital. PAST MEDICAL HISTORY: The patient has history of abnormal echocardiogram, acute kidney disease, [id number] renal failure, anxiety, coronary heart disease, cardiomyopathy, chest pain, CKD, constipation, COPD, depression, diabetes mellitus, emphysema, GERD syndrome and past history of myocardial infarction. PAST SURGICAL HISTORY: History of bilateral knee replacement, history of colon resection, history of colostomy, appendectomy, CABG and also history of stent placement. MEDICATIONS: The patient is taking following medication at present. Metoprolol 50 mg daily, metformin 1 gram twice daily, aerosol treatment with albuterol, aspirin 325 mg daily, Symbicort 2 puffs twice daily, Plavix 75 mg daily, isosorbide 60 mg daily, insulin 70/30 40 units twice daily. SOCIAL HISTORY: The patient does not drink alcohol, does not use any illicit drugs. He used to smoke before, smoked 3 packs per day for 30 years, quit about 25 years ago. FAMILY HISTORY: His father of prostate cancer and mother of heart disease. There is strong history of myocardial infarction, coronary heart disease and hypertension in the family. PHYSICAL EXAMINATION: GENERAL: The patient is conscious, alert, oriented, but apprehensive. VITAL SIGNS: Blood pressure 130/78, pulse 70, respirations 18, temperature 97.7. HEENT: Unremarkable. No glandular enlargement. Trachea central. NECK: Veins are not distended. HEART: Regular. No murmur. LUNGS: Show few rhonchi with increased expiration. No crepitation. ABDOMEN: Soft. Liver and spleen not palpable. No area of tenderness. No mass palpable. EXTREMITIES: No edema of legs. CENTRAL NERVOUS SYSTEM: No neurological deficit observed. LABORATORY DATA: CBC showed hypochromic anemia with hemoglobin 7.9, hematocrit 25.2. Protime is 12. Comprehensive metabolic profile showed glucose 175, BUN 25, creatinine 1.37, GFR 51, alkaline phosphatase is 43. Troponin level is [place], [place] PATIENT HISTORY AND PHYSICAL EXAM NAME: MERNA ABARCA UNIT #: [id number] ROOM: [facility] DOCTOR: JAVID PARRA MD BIRTHDATE: [birth year] normal at 0.25. ProBNP is 2865, indicating congestive heart failure. Chest x-ray shows cardiomegaly without acute pulmonary disease and without significant change. DIAGNOSES: Chest pain with cardiomyopathy, poor ejection fraction, chronic obstructive pulmonary disease with emphysema with possible congestive heart failure due to elevated proBNP and hypochromic anemia, renal failure. PLAN OF TREATMENT: The patient will be admitted to hospital and watched closely, do serial EKGs and isoenzymes, start him on home medication, receive oxygen to keep pulse oximetry of fairly good level. JAVID PARRA MD CM:HISPHYS:PATIENT HISTORY AND PHYSICAL EXAMINATION 1327 1455 JAVID PARRA MD 06/22/17 0228 interface
[2017-06-21 12:23] LABS: BASO % 0.5 % (0.0-1.0); EOS # 0.1 10*3/uL (0.0-0.4); HEMATOCRIT 25.2 % (42.0-52.0); HEMOGLOBIN 7.9 g/dl (14.0-18.0); LYMPH # 0.5 10*3/uL (1.3-4.4); MEAN CORPUSCULAR HGB CONC 31.3 g/dl (33.0-37.0); MEAN PLATELET VOLUME 8.7 fl (9.6-12.3); MONO # 0.5 10*3/uL (0.1-1.0); MONO % 7.8 % (3.0-9.0); NEUT # 4.9 10*3/uL (2.3-7.9); NEUT % 81.2 % (47.0-73.0); PLATELET COUNT AUTOMATED 284 10*3/uL (130-400); RED BLOOD COUNT 2.93 10*6/uL (4.50-5.90); RED CELL DISTRI WIDTH 15.7 % (0-14.5)
[2017-06-21 12:31] LABS: ACT PARTIAL THROMBO TIME 23.4 SECONDS (20.8-31.5); INTERNATIONAL NORM RATIO 1.1 (2.0-3.5)
[2017-06-21 12:41] LABS: ALBUMIN 3.4 gm/dl (3.1-4.5); ALKALINE PHOSPHATASE 43 U/L (45-117); BUN 26 mg/dl (7-24); CHLORIDE 106 mmol/L (98-107); CREATININE 1.37 mg/dL (0.70-1.30); POTASSIUM 5.1 mmol/L (3.5-5.1); SGOT/AST 13 IU/L (3-35); SGPT/ALT 21 U/L (12-78); SODIUM 138 mmol/L (136-145); TOTAL PROTEIN 6.3 gm/dL (6.4-8.2)
[2017-06-21 12:42] LABS: TROPONIN I 0.025 ng/ml (<0.045)
[2017-06-21 12:54] LABS: RETICULOCYTE % 2.13 % (0.50-2.50)
[2017-06-21 13:08] LABS: IRON 23 ug/dL (65-175); TOTAL IRON BINDING CAPACITY 366 ug/dl (250-450)
[2017-06-21] MEDS ORDERED: ASPIR-TRIN325 MG PO (16:18)
[2017-06-21] MEDS ORDERED: PLAVIX75 M1 PO (16:18)
[2017-06-21] MEDS ORDERED: NITROSTAT0.4 MG SL (16:53)
[2017-06-21] MEDS ORDERED: ALDACTONE25 MG PO (16:54)
[2017-06-21] MEDS ORDERED: LISINOPRIL2.5 MG PO (16:54)
[2017-06-21] MEDS ORDERED: NOVOLOG 70/30 M10 ML SC (16:54)
[2017-06-21] MEDS ORDERED: METFORMIN500 MG PO (16:55)
[2017-06-21] MEDS ORDERED: RANEXA1000 M1 PO (16:57)
[2017-06-21] MEDS ORDERED: LOPRESSOR50 M1 PO (17:00)
[2017-06-21] MEDS ORDERED: IMDUR SA60 M1 PO (17:01)
[2017-06-21] MEDS ORDERED: SYMB160 INH (17:03)
[2017-06-21] MEDS ORDERED: LIPITOR10 MG PO (17:11)
[2017-06-21] MEDS ORDERED: PROTONIX40 MG PO (17:12)
[2017-06-21] MEDS ORDERED: SPIRIVA -- 3018 MCG INH (17:14)
[2017-06-21] MEDS ORDERED: LIPITOR80 MG PO (18:15)
[2017-06-22] VITALS (7 sets, daily range): BP systolic 88–114; BP diastolic 39–69
[2017-06-22 06:09] LABS: BUN 28 mg/dl (7-24); CHLORIDE 104 mmol/L (98-107); CREATININE 1.34 mg/dL (0.70-1.30); POTASSIUM 4.1 mmol/L (3.5-5.1); SODIUM 137 mmol/L (136-145)
[2017-06-22 06:13] LABS: BASO % 0.3 % (0.0-1.0); EOS # 0.1 10*3/uL (0.0-0.4); EOS % 1.1 % (1.0-4.0); HEMATOCRIT 30.6 % (42.0-52.0); LYMPH # 1.2 10*3/uL (1.3-4.4); LYMPH % 16.8 % (27.0-41.0); MEAN CELL VOLUME 84.1 fl (80.0-94.0); MEAN CORPUSCULAR HGB 27.5 pg (27.0-31.0); MEAN CORPUSCULAR HGB CONC 32.7 g/dl (33.0-37.0); MEAN PLATELET VOLUME 9.6 fl (9.6-12.3); MONO # 0.6 10*3/uL (0.1-1.0); MONO % 8.3 % (3.0-9.0); NEUT # 5.1 10*3/uL (2.3-7.9); NEUT % 72.8 % (47.0-73.0); PLATELET COUNT AUTOMATED 307 10*3/uL (130-400); RED BLOOD COUNT 3.64 10*6/uL (4.50-5.90); RED CELL DISTRI WIDTH 15.8 % (0-14.5)
[2017-06-23] VITALS: BP 90/50
[2017-06-23 04:00] VITALS: BP 100/62
[2017-06-23 05:10] LABS: BASO % 0.5 % (0.0-1.0); EOS # 0.1 10*3/uL (0.0-0.4); EOS % 1.4 % (1.0-4.0); HEMATOCRIT 29.8 % (42.0-52.0); HEMOGLOBIN 9.7 g/dl (14.0-18.0); LYMPH # 1.1 10*3/uL (1.3-4.4); LYMPH % 17.9 % (27.0-41.0); MEAN CELL VOLUME 84.2 fl (80.0-94.0); MEAN CORPUSCULAR HGB 27.4 pg (27.0-31.0); MEAN CORPUSCULAR HGB CONC 32.6 g/dl (33.0-37.0); MEAN PLATELET VOLUME 9.4 fl (9.6-12.3); MONO # 0.7 10*3/uL (0.1-1.0); MONO % 10.4 % (3.0-9.0); NEUT # 4.3 10*3/uL (2.3-7.9); NEUT % 69.2 % (47.0-73.0); PLATELET COUNT AUTOMATED 284 10*3/uL (130-400); RED BLOOD COUNT 3.54 10*6/uL (4.50-5.90); RED CELL DISTRI WIDTH 16.1 % (0-14.5); WHITE BLOOD COUNT 6.3 10*3/uL (4.8-10.8)
[2017-06-23 05:22] LABS: BUN 34 mg/dl (7-24); CHLORIDE 105 mmol/L (98-107); CREATININE 1.27 mg/dL (0.70-1.30); POTASSIUM 3.9 mmol/L (3.5-5.1); SODIUM 140 mmol/L (136-145)
[2017-06-23 08:00] VITALS: BP 100/60
[2017-06-23 12:00] VITALS: BP 103/65
[2017-06-23 16:00] VITALS: BP 103/86
[2017-06-23 20:00] VITALS: BP 108/66
[2017-06-24] VITALS: BP 108/71
[2017-06-24 07:40] LABS: BASO % 0.3 % (0.0-1.0); EOS # 0.1 10*3/uL (0.0-0.4); EOS % 1.2 % (1.0-4.0); HEMATOCRIT 30.5 % (42.0-52.0); HEMOGLOBIN 9.6 g/dl (14.0-18.0); LYMPH # 1.1 10*3/uL (1.3-4.4); LYMPH % 14.6 % (27.0-41.0); MEAN CELL VOLUME 85.7 fl (80.0-94.0); MEAN CORPUSCULAR HGB CONC 31.5 g/dl (33.0-37.0); MEAN PLATELET VOLUME 9.7 fl (9.6-12.3); MONO # 0.7 10*3/uL (0.1-1.0); MONO % 9.7 % (3.0-9.0); NEUT # 5.5 10*3/uL (2.3-7.9); NEUT % 73.7 % (47.0-73.0); PLATELET COUNT AUTOMATED 282 10*3/uL (130-400); RED BLOOD COUNT 3.56 10*6/uL (4.50-5.90); RED CELL DISTRI WIDTH 15.9 % (0-14.5); WHITE BLOOD COUNT 7.4 10*3/uL (4.8-10.8)
[2017-06-24 08:00] VITALS: BP 102/58
[2017-06-24 08:05] LABS: BUN 28 mg/dl (7-24); CHLORIDE 104 mmol/L (98-107); CREATININE 1.14 mg/dL (0.70-1.30); POTASSIUM 3.9 mmol/L (3.5-5.1); SODIUM 136 mmol/L (136-145)
[2017-06-24] MEDS ORDERED: ASPIRIN CHEWABL81 MG PO (10:52)
[2017-06-24] MEDS ORDERED: IRON325 M1 PO (11:11)
[2017-06-24 12:00] VITALS: BP 99/63
== END 2017-06-24 13:55 | disposition home health service (06) | DRG 378 ==
LOC: ED 11:57 → EDHOLD 12:37 → 4E 12:37 → ICCU 13:17 → 4E 06-23 14:20
PROVIDERS: Emergency Medicine; Internal Medicine
PROC: 30233N1 Transfusion of Nonautologous Red Blood Cells into Peripheral Vein, Percutaneous Approach (ICD-10-PCS; principal; 2017-06-21)
DX: K92.2 Gastrointestinal hemorrhage, unspecified (principal); N17.9 Acute kidney failure, unspecified; E11.59 Type 2 diabetes mellitus with other circulatory complications; E11.22 Type 2 diabetes mellitus with diabetic chronic kidney disease; I24.8 Other forms of acute ischemic heart disease; I42.9 Cardiomyopathy, unspecified; F33.9 Major depressive disorder, recurrent, unspecified; I50.22 Chronic systolic (congestive) heart failure; I13.0 Hypertensive heart and chronic kidney disease with heart failure and stage 1 through stage 4 chronic kidney disease, or unspecified chronic kidney disease; Z79.82 Long term (current) use of aspirin; I25.10 Atherosclerotic heart disease of native coronary artery without angina pectoris; J43.9 Emphysema, unspecified; F41.9 Anxiety disorder, unspecified; E78.5 Hyperlipidemia, unspecified; I25.5 Ischemic cardiomyopathy; D64.9 Anemia, unspecified; Z96.653 Presence of artificial knee joint, bilateral; K21.9 Gastro-esophageal reflux disease without esophagitis; N18.3 Chronic kidney disease, stage 3 (moderate); Z90.49 Acquired absence of other specified parts of digestive tract; I25.2 Old myocardial infarction; Z79.4 Long term (current) use of insulin; Z95.1 Presence of aortocoronary bypass graft; Z87.891 Personal history of nicotine dependence; Z95.5 Presence of coronary angioplasty implant and graft; Z79.02 Long term (current) use of antithrombotics/antiplatelets; Z88.1 Allergy status to other antibiotic agents; Z87.19 Personal history of other diseases of the digestive system; Z82.49 Family history of ischemic heart disease and other diseases of the circulatory system; Z80.42 Family history of malignant neoplasm of prostate; Z79.899 Other long term (current) drug therapy; Z79.84 Long term (current) use of oral hypoglycemic drugs

== ENCOUNTER 2017-07-08 16:10 | Inpatient (IN) | payer MEDICARE ==
[~2017-07-08] VITALS: Ht 195.5 cm; Wt 101.3 kg
[2017-07-08] VITALS (9 sets, daily range): BP systolic 95–142; BP diastolic 45–67
--- NOTE | ~2017-07-08 | O ---
[place], [place] OPERATIVE NOTE NAME: MERNA ABARCA UNIT #: [id number] ROOM: 506 DOCTOR: JN JAIME MD BIRTHDATE: [birth year] DOS: 07/09/2017 INDICATIONS: This 71-year-old patient who presented with chief complaint of anemia, undergoing investigation. The patient with coronary artery disease, status post recent cardiac stent on Plavix and aspirin. PROCEDURE: Today's procedure part of investigation is panendoscopy and colonoscopy. PREMEDICATION: Versed and Diprivan. SCOPE: Olympus forward-viewing gastroscope Q10 Video. REPORT: After putting the patient in left lateral position and application of lubricant to the scope, the scope was introduced. Thereafter, under direct visualization, advanced through the length of esophagus without difficulty. Gastric pouch was entered. Gastritis was seen. Duodenal bulb, second and third part within normal limits. No point of bleeding was identified. Scope was gradually withdrawn. GI reflexion of the scope reveals cardia to be benign. Air was suctioned out. The patient was extubated, tolerated procedure well. IMPRESSION: Gastritis without evidence of any bleeding in upper GI. PLAN AND DISCUSSION: I am going to proceed with colonoscopy. GASTROENDOSCOPIC REPORT The patient has been on iron supplementation on aspirin and Plavix history with new stent 2 weeks ago in coronary arteries. Today's procedure part of investigation is colonoscopy for source of anemia and GI bleed. PREMEDICATIONS: Propofol. SCOPE: Olympus folding colonoscope 10L video. REPORT: After putting the patient in left lateral position and application of lubricant to the scope, the scope was introduced. Thereafter, under direct visualization, advanced through the length of colon with some difficulty being retained secondary to retained stool. Evidence of reversal colostomy was noticed. Otherwise, detail of the mucosal pathology cannot be identified; however, I did not see any bleeding evidenced in the colon. The patient extubated, tolerated procedure well. IMPRESSION: Retained stool and status post colostomy reversal. PLAN: We are going to feed the patient and clinically reassess H and H periodically. We can resume Plavix. [place], [place] OPERATIVE NOTE NAME: MERNA ABARCA UNIT #: [id number] ROOM: 506 DOCTOR: JN JAIME MD BIRTHDATE: [birth year] JN JAIME MD CM:KRISTIEORD:OPERATIVE NOTE 1559 1701 JN JAIME MD 07/09/17 1658 interface
--- NOTE | ~2017-07-08 | CON ---
[place], [place] REPORT OF CONSULTATION NAME: MERNA ABARCA UNIT #: [id number] ROOM: 506 DOCTOR: ADDISON GILLJN BIRTHDATE: [birth year] DOS: 07/09/2017 HISTORY OF PRESENT ILLNESS: A 71-year-old patient who presented with chief complaint of melanotic stool, undergoing investigation. At the time of admission, his H and H was 8 and 27. He has been observed with follow up and status post transfusions. His H and H improved to 9 and 30. His troponins remained negative. He has been on Plavix. He has had recent cardiac stent done 2 weeks ago, he says. His comprehensive metabolic panel, BUN and creatinine, 30 and normal creatinine 1.28. Chemistry normal and liver function test, normal. His hemoglobin A1c 5.3. PAST MEDICAL HISTORY: Depression, chronic renal disease, cardiomyopathy, coronary artery disease, anxiety, hypertension, diabetes mellitus, myocardial infarction. PAST SURGICAL HISTORY: Partial colonic resection, colostomy and colostomy reversal, status post CABG, appendectomy, bilateral knee prosthesis. SOCIAL HISTORY: Passive smoker. Nonalcohol consumer. FAMILY HISTORY: Noncontributory. MEDICATION: Medication list has been reviewed. He has been on ferrous sulfate and clopidogrel. He has been on pantoprazole on the other hand and aspirin. ALLERGIES: CEFAZOLIN. REVIEW OF SYSTEMS: HEENT: Denies double vision, blurred vision. RESPIRATORY: Denies acute shortness of breath. CARDIOVASCULAR: Denies acute chest pain. DIGESTIVE SYSTEM: Black tarry stool. GASTROINTESTINAL: Gastrointestinal bleed, anemia. PHYSICAL EXAMINATION: VITAL SIGNS: Stable. HEENT: Head normocephalic, nontraumatic. Eyes, pupils round and reactive. Mouth and buccal mucosa, benign. NECK: Supple, no thyromegaly, no cervical lymphadenopathy. CHEST: Symmetric anatomy, equal expansion. Decreased air entry in general. HEART: Normal sinus rhythm, no gallop, no murmur. ABDOMEN: Soft. No hepato-organomegaly. Bowel sounds present. No pulsatile mass. EXTREMITIES: No cyanosis, no pedal edema. NEUROLOGIC: Alert, fully oriented to time, place, and person. LABORATORY DATA: Labs reviewed and records reviewed. IMPRESSION: Anemia, status post transfusion, coronary artery disease status post cardiac stents on aspirin and Plavix, on iron supplementation, anxiety, [facility] [place], [place] REPORT OF CONSULTATION NAME: MERNA ABARCA UNIT #: [id number] ROOM: 506 DOCTOR: ADDISON GILL,JN BIRTHDATE: [birth year] diabetes mellitus, hypertension, and hyperlipidemia. PLAN AND DISCUSSION: Since the patient needs to be on antiplatelets due to the new cardiac stent. We will assess to make sure if there is any contribution from GI tract to a GI bleed and blood loss. Otherwise, management of other multi-systemic issues and clinical reevaluation. JN JAIME MD CM:CONSTR:REPORT OF CONSULTATION 1524 07/10/17 0002 interface
--- NOTE | ~2017-07-08 | PR ---
[place], [place] PROGRESS NOTE NAME: MERNA ABARCA UNIT #: [id number] ROOM: 506 DOCTOR: SERINA BAIG MD BIRTHDATE: [birth year] DOS: 07/10/2017 SUBJECTIVE: ____ Dr. Walsh. He feels well and is getting blood transfusion at this time. He has no chest pain or breathing difficulty. He has not had any dizziness when he stood up. Appetite is fine. VITAL SIGNS: His temperature is normal, pulse is 70 regular, blood pressure 106/66. NECK: Normal JVP. LUNGS: Pretty clear to auscultation and abdomen supple. EXTREMITIES: No edema in the lower extremities. Monitor shows sinus rhythm. IMPRESSION: This patient has severe ischemic cardiomyopathy and now has a LifeVest on. There is no evidence of cardiac decompensation. Anemia is quite significant and he is getting blood transfusion. I ____ stools were positive for guaiac. No new recommendations. SERINA BAIG MD CM:PNTRANS [id number] SERINA BAIG MD 07/11/17 0347 interface
--- NOTE | ~2017-07-08 | CON ---
[place], [place] REPORT OF CONSULTATION [id number] UNIT #: [id number] ROOM: 506 DOCTOR: VIRGINIA GILLFILIPE BIRTHDATE: [birth year] DOS: 07/09/2017 HISTORY OF PRESENT ILLNESS: The patient is very well known to me with a known history of ischemic cardiomyopathy, recent stent placement about 4-6 weeks ago and severe COPD. The patient having a LifeVest on and history of GI bleed. The patient is using Pepto-Bismol along with aspirin and Plavix. The patient is found to be anemic, came in with increasing shortness of breath. The patient was recently discharged with GI bleed on 06/24/2017. He has episodes of dark stools, but is taking iron pills. He denies any lightheadedness, dizziness, and chest pain, but stated he has shortness of breath. The patient has chronic systolic heart failure appears to be compensated. No obvious chest pain. No acute EKG changes, suggestion of myocardial injury or infarction. PAST MEDICAL HISTORY: Coronary artery disease, ischemic cardiomyopathy, diabetes, hypertension, emphysema, and previous myocardial infarction. SURGICAL HISTORY: Bilateral knee replacement, colon resection, colostomy reversal, appendectomy, and bypass. SOCIAL HISTORY: Does not drink alcohol. Does not use any drugs. He is a former smoker. FAMILY HISTORY: Positive for coronary artery disease. ALLERGIES: CEFAZOLIN. HOME MEDICATIONS: Aspirin, atorvastatin, clopidogrel, insulin, lisinopril, metformin, metoprolol, nitroglycerin, and spironolactone. REVIEW OF SYSTEMS: CONSTITUTIONAL: No fever. No chills. HEENT: No visual disturbances or hearing problems. CARDIOVASCULAR: Complains of diaphoresis. No chest discomfort. RESPIRATORY: Reports shortness of breath and dyspnea on exertion and orthopnea. GASTROINTESTINAL: No nausea and no vomiting, but complains of blood in the stools. GENITOURINARY: No dysuria. NEUROLOGICAL: Stable. PHYSICAL EXAMINATION: VITAL SIGNS: Blood pressure is 130/60, pulse is 71, and respiratory rate is 18. NECK: Elevated JVD. Pupils are reactive. LUNGS: Clear. HEART: Sounds are regular. ABDOMEN: Soft. Nontender. NEUROLOGICAL: He appears to be stable. LABORATORY DATA: Sodium 136, potassium 4.8, and creatinine is 1.2. Liver function is normal. Troponin is negative. Hemoglobin 8.7 and hematocrit 27.8. [place], [place] REPORT OF CONSULTATION NAME: MERNA ABARCA UNIT #: [id number] ROOM: 506 DOCTOR: FILIPE COLEMAN MD BIRTHDATE: [birth year] DIAGNOSTIC DATA: EKG sinus with frequent PVCs with interventricular conduction delay of left bundle pattern. Chest x-ray showed no acute changes. No evidence of CHF. IMPRESSION: 1. Probable gastrointestinal bleed. 2. Dyspnea on exertion. 3. The patient with ischemic cardiomyopathy. 4. Coronary artery disease. RECOMMENDATIONS: Continue the present care. The patient is to have GI evaluation done today. Continue the Aldactone and the beta-blockers as ordered and aspirin and Plavix as ordered, which should be continued. Cannot stop the Plavix because of the recent stent. If any evidence of acute bleed, can hold the aspirin for a few days. Systolic heart failure appears to be compensated. I will closely follow up. FILIPE COLEMAN MD CM:CONSTR:REPORT OF CONSULTATION 0724 07/09/17 0757 interface
[~2017-07-08 16:10] MED LIST changes: +ALDACTONE25 MG PO; +ASPIR-TRIN325 MG PO; +ASPIRIN CHEWABL81 MG PO; +IRON325 M1 PO; +LIPITOR10 MG PO; +LISINOPRIL2.5 MG PO; +METFORMIN500 MG PO; +NOVOLOG 70/30 M10 ML SC; +PROTONIX40 MG PO; +RANEXA1000 M1 PO; +SPIRIVA -- 3018 MCG INH
[2017-07-08 16:43] LABS: BASO % 0.4 % (0.0-1.0); EOS # 0.1 10*3/uL (0.0-0.4); EOS % 1.4 % (1.0-4.0); HEMATOCRIT 27.8 % (42.0-52.0); HEMOGLOBIN 8.7 g/dl (14.0-18.0); LYMPH # 0.7 10*3/uL (1.3-4.4); LYMPH % 13.9 % (27.0-41.0); MEAN CELL VOLUME 86.6 fl (80.0-94.0); MEAN CORPUSCULAR HGB 27.1 pg (27.0-31.0); MEAN CORPUSCULAR HGB CONC 31.3 g/dl (33.0-37.0); MEAN PLATELET VOLUME 9.8 fl (9.6-12.3); MONO # 0.3 10*3/uL (0.1-1.0); MONO % 6.5 % (3.0-9.0); NEUT % 77.4 % (47.0-73.0); PLATELET COUNT AUTOMATED 210 10*3/uL (130-400); RED BLOOD COUNT 3.21 10*6/uL (4.50-5.90); RED CELL DISTRI WIDTH 16.6 % (0-14.5); WHITE BLOOD COUNT 5.1 10*3/uL (4.8-10.8)
[2017-07-08 16:52] LABS: ACT PARTIAL THROMBO TIME 24.9 SECONDS (20.8-31.5); INTERNATIONAL NORM RATIO 1.1 (2.0-3.5)
[2017-07-08 17:00] LABS: ALBUMIN 3.6 gm/dl (3.1-4.5); ALKALINE PHOSPHATASE 49 U/L (45-117); BUN 30 mg/dl (7-24); CHLORIDE 106 mmol/L (98-107); CREATININE 1.28 mg/dL (0.70-1.30); POTASSIUM 4.8 mmol/L (3.5-5.1); SGOT/AST 14 IU/L (3-35); SGPT/ALT 17 U/L (12-78); SODIUM 136 mmol/L (136-145); TOTAL PROTEIN 6.7 gm/dL (6.4-8.2)
[2017-07-08 17:03] LABS: TROPONIN I < 0.015 ng/ml (<0.045)
[2017-07-08] MEDS ORDERED: ASPIRIN CHEWABL81 MG PO (18:08)
[2017-07-08] MEDS ORDERED: IRON325 M1 PO (18:10)
[2017-07-08] MEDS ORDERED: PEPTO-BISM262 MG/11 PO (18:34)
[2017-07-08] MEDS ORDERED: PROAIR HFA8.5 GM INH (18:37)
[2017-07-09] VITALS (9 sets, daily range): BP systolic 92–139; BP diastolic 29–69
[2017-07-09 00:09] LABS: HEMATOCRIT 28.8 % (42.0-52.0)
[2017-07-09 06:34] LABS: BASO % 0.3 % (0.0-1.0); EOS # 0.2 10*3/uL (0.0-0.4); EOS % 2.1 % (1.0-4.0); HEMATOCRIT 30.2 % (42.0-52.0); HEMOGLOBIN 9.7 g/dl (14.0-18.0); LYMPH # 1.2 10*3/uL (1.3-4.4); LYMPH % 15.5 % (27.0-41.0); MEAN CORPUSCULAR HGB 27.6 pg (27.0-31.0); MEAN CORPUSCULAR HGB CONC 32.1 g/dl (33.0-37.0); MEAN PLATELET VOLUME 9.8 fl (9.6-12.3); MONO # 0.5 10*3/uL (0.1-1.0); MONO % 6.3 % (3.0-9.0); NEUT # 5.8 10*3/uL (2.3-7.9); NEUT % 75.3 % (47.0-73.0); PLATELET COUNT AUTOMATED 224 10*3/uL (130-400); RED BLOOD COUNT 3.51 10*6/uL (4.50-5.90); RED CELL DISTRI WIDTH 16.5 % (0-14.5); WHITE BLOOD COUNT 7.7 10*3/uL (4.8-10.8)
[2017-07-09 07:03] LABS: BUN 23 mg/dl (7-24); CHLORIDE 108 mmol/L (98-107); CREATININE 1.26 mg/dL (0.70-1.30); PHOSPHOROUS 3.6 mg/dL (2.5-4.9); POTASSIUM 4.3 mmol/L (3.5-5.1); SODIUM 140 mmol/L (136-145)
[2017-07-09 08:31] LABS: VITAMIN D, 25-HYDROXY 20.7 ng/mL (30-100)
[2017-07-10] VITALS (8 sets, daily range): BP systolic 101–122; BP diastolic 52–70
[2017-07-10 06:55] LABS: HEMATOCRIT 28.2 % (42.0-52.0); HEMOGLOBIN 9.1 g/dl (14.0-18.0)
[2017-07-10 07:07] LABS: BUN 16 mg/dl (7-24); CHLORIDE 105 mmol/L (98-107); CREATININE 1.14 mg/dL (0.70-1.30); POTASSIUM 3.7 mmol/L (3.5-5.1); SODIUM 138 mmol/L (136-145)
[2017-07-10] MEDS ORDERED: VITAMIN D-32000 UNIT PO (10:42)
[2017-07-10] MEDS ORDERED: PREPARATION H26 GM T (10:42)
[2017-07-10] MEDS ORDERED: DULCOLAX5 M1 PO (10:43)
[2017-07-10 11:59] LABS: HEMATOCRIT 33.1 % (42.0-52.0); HEMOGLOBIN 10.4 g/dl (14.0-18.0)
[2017-07-11] VITALS: BP 116/65
[2017-07-11 06:36] LABS: BASO % 0.4 % (0.0-1.0); EOS # 0.2 10*3/uL (0.0-0.4); EOS % 3.4 % (1.0-4.0); HEMATOCRIT 32.5 % (42.0-52.0); HEMOGLOBIN 10.5 g/dl (14.0-18.0); LYMPH % 19.1 % (27.0-41.0); MEAN CELL VOLUME 86.4 fl (80.0-94.0); MEAN CORPUSCULAR HGB 27.9 pg (27.0-31.0); MEAN CORPUSCULAR HGB CONC 32.3 g/dl (33.0-37.0); MEAN PLATELET VOLUME 9.7 fl (9.6-12.3); MONO # 0.5 10*3/uL (0.1-1.0); MONO % 10.1 % (3.0-9.0); NEUT # 3.6 10*3/uL (2.3-7.9); NEUT % 66.4 % (47.0-73.0); PLATELET COUNT AUTOMATED 222 10*3/uL (130-400); RED BLOOD COUNT 3.76 10*6/uL (4.50-5.90); RED CELL DISTRI WIDTH 16.6 % (0-14.5); WHITE BLOOD COUNT 5.3 10*3/uL (4.8-10.8)
[2017-07-11] MEDS ORDERED: COLACE100 MG PO (07:38)
[2017-07-11 08:00] VITALS: BP 100/58
== END 2017-07-11 11:05 | disposition home or self-care (01) | DRG 378 ==
LOC: ED 16:10 → EDHOLD 17:35 → 5E 17:35
PROVIDERS: Internal Medicine Gastroenterology; Nurse Practitioner Family; Student in an Organized Health Care Education/Training Program
PROC: 30233N1 Transfusion of Nonautologous Red Blood Cells into Peripheral Vein, Percutaneous Approach (ICD-10-PCS; 2017-07-08)
PROC: 0DJD8ZZ Inspection of Lower Intestinal Tract, Via Natural or Artificial Opening Endoscopic (ICD-10-PCS; principal; 2017-07-09)
PROC: 0DJ08ZZ Inspection of Upper Intestinal Tract, Via Natural or Artificial Opening Endoscopic (ICD-10-PCS; principal; 2017-07-09)
DX: K29.01 Acute gastritis with bleeding (principal); I50.22 Chronic systolic (congestive) heart failure; E11.22 Type 2 diabetes mellitus with diabetic chronic kidney disease; E11.65 Type 2 diabetes mellitus with hyperglycemia; I13.0 Hypertensive heart and chronic kidney disease with heart failure and stage 1 through stage 4 chronic kidney disease, or unspecified chronic kidney disease; E83.41 Hypermagnesemia; E83.51 Hypocalcemia; I25.10 Atherosclerotic heart disease of native coronary artery without angina pectoris; K21.9 Gastro-esophageal reflux disease without esophagitis; F41.9 Anxiety disorder, unspecified; N18.9 Chronic kidney disease, unspecified; F32.9 Major depressive disorder, single episode, unspecified; D72.9 Disorder of white blood cells, unspecified; D72.810 Lymphocytopenia; D64.9 Anemia, unspecified; J43.9 Emphysema, unspecified; R07.89 Other chest pain; I25.5 Ischemic cardiomyopathy; E78.5 Hyperlipidemia, unspecified; K59.00 Constipation, unspecified; Z96.653 Presence of artificial knee joint, bilateral; Z88.8 Allergy status to other drugs, medicaments and biological substances; Z93.3 Colostomy status; Z90.49 Acquired absence of other specified parts of digestive tract; Z95.1 Presence of aortocoronary bypass graft; Z87.891 Personal history of nicotine dependence; Z82.49 Family history of ischemic heart disease and other diseases of the circulatory system; Z80.42 Family history of malignant neoplasm of prostate; I25.2 Old myocardial infarction; Z79.82 Long term (current) use of aspirin; Z79.899 Other long term (current) drug therapy; Z79.4 Long term (current) use of insulin

== ENCOUNTER 2017-07-30 14:57 | Inpatient (IN) | payer MEDICARE ==
[2017-07-30] VITALS (7 sets, daily range): BP systolic 124–134; BP diastolic 45–62
[~2017-07-30] VITALS: Ht 196 cm; Wt 101.0 kg
--- NOTE | ~2017-07-30 | O ---
[place], [place] OPERATIVE NOTE NAME: MERNA ABARCA UNIT #: [id number] ROOM: 520 DOCTOR: ADDISON GILL,JN BIRTHDATE: [birth year] DOS: 08/01/2017 GASTRO-ENDOSCOPIC REPORT INDICATIONS: The patient has presented with a GI bleed. The patient has been on Plavix and aspirin. The patient has presented with H and H of 8 and 27, black tarry stool. INR of 1.0. Comprehensive metabolic panel has been benign. He has received 2 units of packed cells. H and H has improved to 10 and 33. The patient has had recent EGD and colonoscopy. No evidence of bleeding. We have been concerned about reassessment of his EGD and colonoscopy and we were having the dilemma of his black tarry stool source and ambiguity of management in view of the fact that he requires to have anticoagulation on board. He has had a recent stent 2 weeks ago, need of remaining on antiplatelet and anticoagulants versus gastrointestinal bleed and has been a point of concern. PROCEDURE: Today's procedure part of investigation is panendoscopy and colonoscopy. PREMEDICATION: Versed and Diprivan. SCOPE: Olympus forward-viewing gastroscope Q10 video. REPORT: After putting the patient in left lateral position and application of lubricant to the scope, the scope was introduced. Thereafter, under direct visualization, advanced through the length of esophagus without difficulty. A few small esophageal blebs varicosities were identified. 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 Gastric pouch was entered. Mild gastritis seen. Duodenal bulb, second and third part within normal limits. The patient extubated, tolerated the procedure well. IMPRESSION: Distal esophagitis, few small esophageal varicosity blebs, mild gastritis. PLAN AND DISCUSSION: There was no active source of GI bleed in upper GI tract. I am going to proceed with colonoscopy. GASTRO-ENDOSCOPIC REPORT INDICATIONS: The patient has presented with chief complaint of GI bleed, undergoing investigation. PROCEDURE: Today's procedure part of investigation is colonoscopy. PREMEDICATION: Versed and Diprivan. [place], [place] OPERATIVE NOTE NAME: MERNA ABARCA UNIT #: [id number] ROOM: [facility] DOCTOR: ADDISON GILL,JN BIRTHDATE: [birth year] SCOPE: Olympus forward-viewing colonoscope 10L video. REPORT: After putting the patient in left lateral position and application of lubricant to the scope, the scope was introduced. Thereafter, under direct visualization, advanced through the length of colon without difficulty. Anastomotic site was noticed. There was no evidence of ischemia. There was no active bleeding, residual stool in the colon noticed, right colon is free of pathology as well. Air was suctioned out. The patient was extubated, tolerated the procedure well. IMPRESSION: Diverticulosis, status post colostomy reversal. Otherwise, retained stool, otherwise no active bleeding. PLAN AND DISCUSSION: We are going to continue with Plavix and aspirin regimen for his recent 2 weeks old cardiac stent. DIET: Regular. JN JAIME MD CM:OPRECORD:OPERATIVE NOTE [id number] JN JAIME MD 08/01/17 1821 interface
--- NOTE | ~2017-07-30 | WRIGHTHP ---
[place], [place] PATIENT HISTORY AND PHYSICAL EXAM NAME: [id number] UNIT #: [id number] ROOM: 520 DOCTOR: DALJIT ARAUJO MD BIRTHDATE: [birth year] DOS: 07/30/2017 CHIEF COMPLAINT: GI bleed, black stools. HISTORY OF PRESENT ILLNESS: This is 72 years old patient who came to the office as he was having black stools for about a week and the patient was also feeling progressively short of breath. His hemoglobin was found to be 8.7 and he had WBC count of 4.6 and he had stool positive for occult blood. Then, the patient at this time is being admitted and he will be given 2 units of packed RBC. The patient recently was admitted to the hospital and had colonoscopy and then EGD done, which were negative, possibly have some gastritis. The patient does need blood thinners because of the underlying coronary artery disease, they will not be stopped and the patient does have advanced cardiomyopathy with ejection fraction of 10-15% in the past. PAST MEDICAL HISTORY: Significant for: 1. Coronary artery disease, status post CABG at [facility] [address] in 1990, then he had a myocardial infarction again in May 2001, then he had CABG again in 2001 at [facility], he had repeat bypass laterally. 2. Hyperlipidemia. 3. Anxiety. 4. COPD with FEV1 of 43%. 5. Osteoarthritis, status post bilateral knee transplant. 6. Hemorrhoids. 7. History of bowel perforation. After knee replacement, had colostomy done which has been reversed. 8. The patient has portable defibrillator in place. 9. He quit smoking about 30-35 years ago. He also has diabetes mellitus type 2. PAST SURGICAL HISTORY: Status post bilateral knee replacement, open heart in 1996 and 1999. FAMILY HISTORY: Father at 70. He had prostate cancer, diagnosed with cancer. The mother, 86 years old, she of heart failure. Sister has breast cancer. One brother and six sisters. He was for 10 years and now for more than 30 years. No children. He has only one sister living and he almost visits her on a daily basis. His brother and all other sisters have , he is the youngest of the sibling. SOCIAL HISTORY: The patient has quit smoking for more than 10 years. No alcohol, no illicit drug use. ALLERGIES: ULTRAM causes problem with urination. REVIEW OF SYSTEMS: He has weakness and shortness of breath. No chest pain, no swelling of the feet. Otherwise, 10-point review of system is negative. MEDICATIONS AT HOME: Symbicort 164.5 two puffs b.i.d., Ranexa 500 twice a day, metformin 1000 twice a day, NovoLog 70/30, 40 units twice a day, Lipitor 80 mg [place], [place] PATIENT HISTORY AND PHYSICAL EXAM NAME: MERNA ABARCA UNIT #: [id number] ROOM: [facility] DOCTOR: DALJIT ARAUJO MD BIRTHDATE: [birth year] daily, Imdur 60 mg daily, Ventolin HFA 2 puffs q. 6 hours p.r.n., p.r.n. Spiriva 2 puffs inhalation once a day, Ativan 0.5 mg once a day p.r.n., metoprolol 50 mg once a day, Plavix 75 mg daily, aspirin 325 mg daily, nitroglycerin 0.4 mg tablet sublingual as directed p.r.n. PHYSICAL EXAMINATION: VITAL SIGNS: Temperature is 97.2, heart rate 78, blood pressure 118/62, weight 228 pounds. BMI is 27.3, oxygenation 98% and respiratory rate 16. HEAD: Normocephalic, atraumatic. EYES: Pupils equal, round, reactive to light. Extraocular movements intact. The patient has pallor noted. EAR, NOSE AND THROAT: No discharge noted. NECK: No JVD, no lymphadenopathy, no thyromegaly. CHEST: Clinically decreased breath sounds. HEART: S1, S2, regular in rate and no murmur, gallop or rub. ABDOMEN: Soft, nontender. EXTREMITIES: No cyanosis, clubbing or edema. NEUROLOGIC: No focal deficit. ASSESSMENT: At this time: 1. Acute gastrointestinal hemorrhage with melena. 2. Anemia secondary to gastrointestinal bleed. 3. Most likely the patient has iron deficiency secondary to chronic blood loss. 4. Chronic obstructive pulmonary disease. 5. [place] Heart Association class 4 congestive heart failure. 6. He has underlying ischemic cardiomyopathy. 7. Hyperlipidemia. 8. Anxiety. PLAN OF CARE: 1. Continue aspirin and Plavix at this point as necessitated because the patient has underlying coronary artery disease. 2. We will give 2 units of blood transfusion. 3. May consult Dr. Stone again if need to be scoped again. 4. Continue all other home medications. 5. We will follow the patient. Labs will be reviewed and the patient was admitted from the office and will follow the patient in the morning. [place], [place] PATIENT HISTORY AND PHYSICAL EXAM NAME: MERNA ABARCA UNIT #: [id number] ROOM: [facility] DOCTOR: DALJIT ARAUJO MD BIRTHDATE: [birth year] DALJIT ARAUJO MD CM:HISPHYS:PATIENT HISTORY AND PHYSICAL EXAMINATION 1654 [id number] DALJIT ARAUJO MD 08/06/17 0716 interface
[~2017-07-30 14:57] MED LIST changes: +DULCOLAX5 M1 PO; +PEPTO-BISM262 MG/11 PO; +PREPARATION H26 GM T; +VITAMIN D-32000 UNIT PO
[2017-07-30 15:50] LABS: BASO % 0.4 % (0.0-1.0); EOS # 0.1 10*3/uL (0.0-0.4); EOS % 2.2 % (1.0-4.0); HEMATOCRIT 27.3 % (42.0-52.0); HEMOGLOBIN 8.7 g/dl (14.0-18.0); LYMPH # 0.7 10*3/uL (1.3-4.4); LYMPH % 16.1 % (27.0-41.0); MEAN CELL VOLUME 87.5 fl (80.0-94.0); MEAN CORPUSCULAR HGB 27.9 pg (27.0-31.0); MEAN CORPUSCULAR HGB CONC 31.9 g/dl (33.0-37.0); MONO # 0.5 10*3/uL (0.1-1.0); MONO % 10.2 % (3.0-9.0); NEUT # 3.3 10*3/uL (2.3-7.9); NEUT % 70.4 % (47.0-73.0); PLATELET COUNT AUTOMATED 199 10*3/uL (130-400); RED BLOOD COUNT 3.12 10*6/uL (4.50-5.90); RED CELL DISTRI WIDTH 16.8 % (0-14.5); WHITE BLOOD COUNT 4.6 10*3/uL (4.8-10.8)
[2017-07-30 16:09] LABS: ALBUMIN 3.5 gm/dl (3.1-4.5); ALKALINE PHOSPHATASE 43 U/L (45-117); BUN 18 mg/dl (7-24); CHLORIDE 108 mmol/L (98-107); CREATININE 1.03 mg/dL (0.70-1.30); POTASSIUM 4.2 mmol/L (3.5-5.1); SGOT/AST 12 IU/L (3-35); SGPT/ALT 15 U/L (12-78); SODIUM 138 mmol/L (136-145); TOTAL PROTEIN 6.4 gm/dL (6.4-8.2)
[2017-07-30 16:12] LABS: BILIRUBIN NEGATIVE (NEGATIVE); BLOOD NEGATIVE (NEGATIVE); CLARITY SL CLOUDY (CLEAR); COLOR YELLOW (YELLOW); GLUCOSE NEGATIVE (NEGATIVE); KETONE NEGATIVE (NEGATIVE); LEUKO ESTERASE NEGATIVE (NEGATIVE); NITRITE NEGATIVE (NEGATIVE); PH 5.5 (5.0-9.0); UROBILINOGEN 0.2 E.U./dl (0.2-1.0)
[2017-07-30 16:23] LABS: BACTERIA 2+; EPITHELIAL CELLS 0-2; RBC 0-2 rbc/hpf (0-2); WBC 0-2 wbc/hpf (0-5)
[2017-07-30] MEDS ORDERED: NOVOLOG MI100 UNIT/1 SQ (17:19)
[2017-07-30] MEDS ORDERED: IMDUR SA60 MG PO (17:21)
[2017-07-30] MEDS ORDERED: ATIVAN0.5 MG PO (17:22)
[2017-07-31] VITALS: BP 126/72
[2017-07-31 06:49] LABS: BASO % 0.5 % (0.0-1.0); EOS # 0.2 10*3/uL (0.0-0.4); EOS % 3.9 % (1.0-4.0); HEMOGLOBIN 10.5 g/dl (14.0-18.0); LYMPH # 1.1 10*3/uL (1.3-4.4); LYMPH % 19.8 % (27.0-41.0); MEAN CELL VOLUME 88.9 fl (80.0-94.0); MEAN CORPUSCULAR HGB 27.7 pg (27.0-31.0); MEAN CORPUSCULAR HGB CONC 31.2 g/dl (33.0-37.0); MEAN PLATELET VOLUME 9.7 fl (9.6-12.3); MONO # 0.6 10*3/uL (0.1-1.0); MONO % 9.9 % (3.0-9.0); NEUT # 3.7 10*3/uL (2.3-7.9); NEUT % 65.4 % (47.0-73.0); PLATELET COUNT AUTOMATED 216 10*3/uL (130-400); RED BLOOD COUNT 3.79 10*6/uL (4.50-5.90); WHITE BLOOD COUNT 5.7 10*3/uL (4.8-10.8)
[2017-07-31 06:57] LABS: HEMATOCRIT 33.7 % (42.0-52.0)
[2017-07-31 07:06] LABS: ALBUMIN 3.4 gm/dl (3.1-4.5); BUN 16 mg/dl (7-24); CHLORIDE 107 mmol/L (98-107); POTASSIUM 4.1 mmol/L (3.5-5.1); SGOT/AST 14 IU/L (3-35); SGPT/ALT 16 U/L (12-78); SODIUM 139 mmol/L (136-145)
[2017-07-31 07:13] LABS: ALKALINE PHOSPHATASE 42 U/L (45-117); CHOLESTEROL 144 mg/dL (<200); CREATININE 1.05 mg/dL (0.70-1.30); FREE T4 0.84 ng/dl (0.76-1.46); HDL CHOLESTEROL 33 mg/dl (40-60); LDL CHOLESTEROL 89 mg/dL (9-159); PHOSPHOROUS 3.9 mg/dL (2.5-4.9); TOTAL PROTEIN 6.5 gm/dL (6.4-8.2); TRIGLYCERIDES 110 mg/dl (<150); VLDL CHOLESTEROL 22 mg/dL (6-40)
[2017-07-31 07:36] LABS: ACT PARTIAL THROMBO TIME 25.2 SECONDS (20.8-31.5)
[2017-07-31 08:00] VITALS: BP 116/76
[2017-07-31 08:57] LABS: VITAMIN D, 25-HYDROXY 28.6 ng/mL (30-100)
[2017-07-31 12:00] VITALS: BP 122/86
[2017-07-31 16:00] VITALS: BP 93/55
[2017-07-31 20:00] VITALS: BP 99/68
[2017-08-01] VITALS (13 sets, daily range): BP systolic 83–131; BP diastolic 36–83
[2017-08-01 06:11] LABS: BASO % 0.6 % (0.0-1.0); EOS # 0.2 10*3/uL (0.0-0.4); EOS % 4.2 % (1.0-4.0); HEMATOCRIT 33.9 % (42.0-52.0); HEMOGLOBIN 10.3 g/dl (14.0-18.0); LYMPH # 0.9 10*3/uL (1.3-4.4); LYMPH % 19.7 % (27.0-41.0); MEAN CELL VOLUME 91.1 fl (80.0-94.0); MEAN CORPUSCULAR HGB 27.7 pg (27.0-31.0); MEAN CORPUSCULAR HGB CONC 30.4 g/dl (33.0-37.0); MEAN PLATELET VOLUME 9.6 fl (9.6-12.3); MONO # 0.4 10*3/uL (0.1-1.0); MONO % 9.2 % (3.0-9.0); NEUT # 3.1 10*3/uL (2.3-7.9); NEUT % 65.9 % (47.0-73.0); PLATELET COUNT AUTOMATED 207 10*3/uL (130-400); RED BLOOD COUNT 3.72 10*6/uL (4.50-5.90); RED CELL DISTRI WIDTH 16.9 % (0-14.5); WHITE BLOOD COUNT 4.8 10*3/uL (4.8-10.8)
[2017-08-01 06:19] LABS: ALBUMIN 3.5 gm/dl (3.1-4.5); ALKALINE PHOSPHATASE 42 U/L (45-117); BUN 13 mg/dl (7-24); CHLORIDE 107 mmol/L (98-107); CREATININE 1.09 mg/dL (0.70-1.30); POTASSIUM 3.9 mmol/L (3.5-5.1); SGOT/AST 12 IU/L (3-35); SGPT/ALT 16 U/L (12-78); SODIUM 140 mmol/L (136-145); TOTAL PROTEIN 6.5 gm/dL (6.4-8.2)
== END 2017-08-01 20:25 | disposition home or self-care (01) | DRG 377 ==
LOC: ED 14:57 → 5E 16:48
PROVIDERS: Internal Medicine; Internal Medicine Gastroenterology; Nurse Practitioner Family
DX: K29.71 Gastritis, unspecified, with bleeding (principal); I50.43 Acute on chronic combined systolic (congestive) and diastolic (congestive) heart failure; E11.65 Type 2 diabetes mellitus with hyperglycemia; E11.22 Type 2 diabetes mellitus with diabetic chronic kidney disease; E83.41 Hypermagnesemia; D62 Acute posthemorrhagic anemia; I13.0 Hypertensive heart and chronic kidney disease with heart failure and stage 1 through stage 4 chronic kidney disease, or unspecified chronic kidney disease; I25.708 Atherosclerosis of coronary artery bypass graft(s), unspecified, with other forms of angina pectoris; E83.51 Hypocalcemia; K21.0 Gastro-esophageal reflux disease with esophagitis; K57.30 Diverticulosis of large intestine without perforation or abscess without bleeding; J43.9 Emphysema, unspecified; N18.3 Chronic kidney disease, stage 3 (moderate); I25.5 Ischemic cardiomyopathy; D72.9 Disorder of white blood cells, unspecified; R07.9 Chest pain, unspecified; I85.00 Esophageal varices without bleeding; E78.5 Hyperlipidemia, unspecified; D72.810 Lymphocytopenia; F32.9 Major depressive disorder, single episode, unspecified; F41.9 Anxiety disorder, unspecified; Z96.653 Presence of artificial knee joint, bilateral; Z95.810 Presence of automatic (implantable) cardiac defibrillator; Z93.3 Colostomy status; Z87.891 Personal history of nicotine dependence; Z90.49 Acquired absence of other specified parts of digestive tract; Z95.1 Presence of aortocoronary bypass graft; I25.2 Old myocardial infarction; Z79.02 Long term (current) use of antithrombotics/antiplatelets; Z79.4 Long term (current) use of insulin; Z79.82 Long term (current) use of aspirin; Z79.84 Long term (current) use of oral hypoglycemic drugs; Z79.899 Other long term (current) drug therapy; Z88.8 Allergy status to other drugs, medicaments and biological substances; Z82.49 Family history of ischemic heart disease and other diseases of the circulatory system; Z80.42 Family history of malignant neoplasm of prostate

== ENCOUNTER → 2017-09-03 | Outpatient (CLI) | payer MEDICARE ==
[~2017-09-03] MED LIST changes: +IMDUR SA60 MG PO
== END | disposition home or self-care (01) ==
LOC: CARD 08:47
DX: I51.9 Heart disease, unspecified (principal)

== ENCOUNTER 2017-10-03 01:00 | Inpatient (IN) | payer MEDICARE ==
[2017-10-03] VITALS (10 sets, daily range): BP systolic 93–128; BP diastolic 60–83
[~2017-10-03] VITALS: Ht 195.5 cm; Wt 104.0 kg
--- NOTE | ~2017-10-03 | PR ---
[place], [place] PROGRESS NOTE NAME: MERNA ABARCA UNIT #: [id number] ROOM: 517 DOCTOR: JAVID PARRA MD BIRTHDATE: [birth year] DOS: SUBJECTIVE: The patient has been admitted to hospital with acute congestive heart failure with EF, history of cardiomyopathy, chronic depression, diabetes mellitus, emphysema, COPD, GERD syndrome and myocardial infarction in the past. He is gradually feeling better. He is having no difficulty in breathing. He is on diuretic, Lasix IV and has diuresed large amount of urine. There is no chest pain, no difficulty in breathing, no nausea, no vomiting. No edema of leg. The patient says he is feeling very much better. OBJECTIVE: VITAL SIGNS: Blood pressure 107/63, pulse 76, respirations 20, temperature 97.7. CHEST: Few crepitation, no wheezing. HEART: Regular with systolic murmur. ABDOMEN: Soft. No edema of the legs. JAVID PARRA MD CM:PNTRANS 0919 [id number] JAVID PARRA MD 10/06/17 0009 interface
--- NOTE | ~2017-10-03 | CON ---
[place], [place] REPORT OF CONSULTATION NAME: MERNA ABARCA UNIT #: [id number] ROOM: 517 DOCTOR: SERINA BAIG MD BIRTHDATE: [birth year] DOS: 10/05/2017 HISTORY OF PRESENT ILLNESS: This is a 72-year-old -[place] man with a history of coronary artery disease. He had 3-vessel coronary artery bypass graft surgery in the remote past and had coronary stents done by Dr. Walsh and Dr. Stanley in the remote past. He had severe ischemic cardiomyopathy. EF as reported by Dr. Walsh was 15%-20% earlier this year (he was offered an AICD, which he refused). He has COPD, hyperlipidemia and GERD and also anxiety disorder. He has diabetes mellitus as well. Had knee replacements done, colon resection and appendectomy. He does not smoke nor does he drink alcoholic beverages. He was working in the yard on the day of admission and had been drinking a lot of fluid. He became rather acutely short of breath and in fact had been noticing more shortness of breath for a few days prior to this admission. He had some anterior chest pressure that lasted for about an hour and has not come back. He had no palpitations, dizziness or loss of consciousness. He had been taking his medications regularly, which include Symbicort, ProAir, Spiriva, aspirin, Dulcolax, vitamin D3, Plavix 75 daily, ferrous sulfate 325 mg daily, lisinopril 2.5 mg daily, lorazepam 0.5 mg p.r.n., metoprolol tartrate 50 mg daily, Protonix 40 daily, ranolazine 500 mg b.i.d., spironolactone 25 mg daily, nitroglycerin sublingually and insulin. PHYSICAL EXAMINATION: GENERAL: Reveals a patient who is very tall, slim, lying flat in bed, is very comfortable. He is not tachypneic. He looks little pale. No thyromegaly. VITAL SIGNS: Pulse is 64 regular with irregularities, blood pressure 115/60. NECK: JVP is normal. AJR is negative. Parasternal heave is present. HEART: Auscultation revealed no obvious murmurs. EXTREMITIES: He has no edema in the lower extremity. Pedal pulses are palpable. RESPIRATORY: He is lying flat. He is not tachypneic. Percussion was normal. Auscultation reveals moderate degree of crack the lower third of the lung boone. DIAGNOSTIC STUDIES: An ECG showed normal sinus rhythm with PVCs, first degree heart block and intraventricular conduction defect. Chest x-ray demonstrated cardiomegaly and no obvious pulmonary edema. LABORATORY DATA: Hemoglobin is 9.3 g/dL. BUN is 18, creatinine 1.3. Troponin I level is normal. IV fluid balance has been -6.8 liters in the last 42 hours (aggressive diuresis had caused lot of cramps). IMPRESSION: 1. Severe ischemic cardiomyopathy with acute decompensation, probably from excessive use of fluids, which he admits to. At this time, failure appears well [place], [place] REPORT OF CONSULTATION NAME: MERNA ABARCA UNIT #: [id number] ROOM: [facility] DOCTOR: SERINA BAIG MD BIRTHDATE: [birth year] compensated. 2. Coronary artery disease, status post remote coronary artery bypass graft. He had chest pain for an hour. It is unclear what caused it. I do not recommend any further cardiac workup in that regard. I would recommend reducing dose of furosemide to 40 mg once a day. I thank you on behalf of Dr. Walsh for this consult. SERINA BAIG MD CM:CONSTR:REPORT OF CONSULTATION 0822 10/06/17 0033 interface
--- NOTE | ~2017-10-03 | PR ---
[place], [place] PROGRESS NOTE NAME: MERNA ABARCA UNIT #: [id number] ROOM: 517 DOCTOR: JAVID PARRA MD BIRTHDATE: [birth year] DOS: SUBJECTIVE: The patient has been admitted to hospital with acute congestive heart failure with ASHD, cardiomyopathy, chronic kidney disease, depression, diabetes mellitus, emphysema, hypertension, GERD syndrome with history of myocardial infarction in the past. He is feeling better. He is breathing much better and he is on IV Lasix and diuresed large amount of urine and he has received blood transfusion. His troponin level is 0.19. Basic metabolic profile shows creatinine 1.22, GFR 58, chloride 111, calcium 8.3, other values are normal. CBC showed white count 4900, hemoglobin 9.9, hematocrit 31.4. CT of the chest shows cardiomegaly with small bilateral pleural effusion. His blood pressure is 99/63, pulse 68, respirations 20, temperature 97.7. The patient has expressed he want to be do not resuscitate that if something happened, he does not want to be resuscitated and I signed the paper in that regard and according to his desire. JAVID PARRA MD CM:PNTRANS 1705 [id number] JAVID PARRA MD 10/05/17 0636 interface
--- NOTE | ~2017-10-03 | PR ---
[place], [place] PROGRESS NOTE NAME: MERNA ABARCA UNIT #: [id number] ROOM: 517 DOCTOR: SERINA BAIG MD BIRTHDATE: [birth year] DOS: 10/06/2017 I am seeing this patient for Dr. Walsh. He diuresed quite well. He has no breathing difficulty now. He had a bit of a panic attack and wanted oxygen, which took about 20 minutes before his symptoms eased up. O2 saturation, I believe, was okay. He has been voiding fairly well. No palpitation, dizziness or loss of consciousness. He has walked in the hallway. OBJECTIVE: GENERAL: Pulse is regular at 76, blood pressure 98/61. NECK: JVP is normal. AJR is negative. LUNGS: He had a lot of crackles in the lower zones. EXTREMITIES: No edema in the lower extremities. Fluid balance was -1.1 liters for the last 24 hours. So far, he has lost 9 liters of fluid in the last 3 days. No blood work was done today. IMPRESSION: This patient has severe ischemic cardiomyopathy and had acute decompensation and now is improving, in fact, clinically seems to be well compensated. Severe coronary artery disease, slight increase in troponin I level was probably related to cardiac decompensation. Loop diuretic should be switched over to oral preparation now. SERINA BAIG MD CM:PNTRANS [id number] SERINA BAIG MD 10/06/17 2331 interface
[2017-10-03 01:25] LABS: BASO % 0.4 % (0.0-1.0); EOS # 0.1 10*3/uL (0.0-0.4); EOS % 1.8 % (1.0-4.0); HEMATOCRIT 26.7 % (42.0-52.0); HEMOGLOBIN 8.5 g/dl (14.0-18.0); LYMPH # 0.7 10*3/uL (1.3-4.4); LYMPH % 15.7 % (27.0-41.0); MEAN CELL VOLUME 92.7 fl (80.0-94.0); MEAN CORPUSCULAR HGB 29.5 pg (27.0-31.0); MEAN CORPUSCULAR HGB CONC 31.8 g/dl (33.0-37.0); MEAN PLATELET VOLUME 9.7 fl (9.6-12.3); MONO # 0.5 10*3/uL (0.1-1.0); MONO % 10.1 % (3.0-9.0); NEUT # 3.2 10*3/uL (2.3-7.9); NEUT % 71.8 % (47.0-73.0); PLATELET COUNT AUTOMATED 183 10*3/uL (130-400); RED BLOOD COUNT 2.88 10*6/uL (4.50-5.90); RED CELL DISTRI WIDTH 14.9 % (0-14.5); WHITE BLOOD COUNT 4.5 10*3/uL (4.8-10.8)
[2017-10-03 01:33] LABS: ACT PARTIAL THROMBO TIME 25.2 SECONDS (20.8-31.5); INTERNATIONAL NORM RATIO 1.1 (2.0-3.5)
[2017-10-03 01:46] LABS: ALBUMIN 3.7 gm/dl (3.1-4.5); ALKALINE PHOSPHATASE 47 U/L (45-117); BUN 21 mg/dl (7-24); CHLORIDE 112 mmol/L (98-107); CREATININE 1.39 mg/dL (0.70-1.30); POTASSIUM 4.6 mmol/L (3.5-5.1); SGOT/AST 14 IU/L (3-35); SGPT/ALT 16 U/L (12-78); SODIUM 142 mmol/L (136-145); TOTAL PROTEIN 6.6 gm/dL (6.4-8.2)
[2017-10-03 01:47] LABS: TROPONIN I 0.019 ng/ml (<0.045)
[2017-10-03 07:08] LABS: BUN 21 mg/dl (7-24); CHLORIDE 111 mmol/L (98-107); CREATININE 1.22 mg/dL (0.70-1.30); PHOSPHOROUS 3.6 mg/dL (2.5-4.9); POTASSIUM 4.5 mmol/L (3.5-5.1); SODIUM 140 mmol/L (136-145)
[2017-10-03 08:59] LABS: BASO % 0.4 % (0.0-1.0); EOS # 0.1 10*3/uL (0.0-0.4); EOS % 1.8 % (1.0-4.0); HEMATOCRIT 31.4 % (42.0-52.0); HEMOGLOBIN 9.9 g/dl (14.0-18.0); LYMPH # 0.8 10*3/uL (1.3-4.4); LYMPH % 16.8 % (27.0-41.0); MEAN CELL VOLUME 92.4 fl (80.0-94.0); MEAN CORPUSCULAR HGB 29.1 pg (27.0-31.0); MEAN CORPUSCULAR HGB CONC 31.5 g/dl (33.0-37.0); MEAN PLATELET VOLUME 9.1 fl (9.6-12.3); MONO # 0.5 10*3/uL (0.1-1.0); MONO % 10.9 % (3.0-9.0); NEUT # 3.4 10*3/uL (2.3-7.9); NEUT % 69.5 % (47.0-73.0); PLATELET COUNT AUTOMATED 182 10*3/uL (130-400); RED CELL DISTRI WIDTH 14.9 % (0-14.5); WHITE BLOOD COUNT 4.9 10*3/uL (4.8-10.8)
[2017-10-04] VITALS: BP 95/58
[2017-10-04 06:45] LABS: BASO % 0.4 % (0.0-1.0); EOS # 0.2 10*3/uL (0.0-0.4); EOS % 2.9 % (1.0-4.0); HEMATOCRIT 29.7 % (42.0-52.0); HEMOGLOBIN 9.3 g/dl (14.0-18.0); LYMPH % 20.1 % (27.0-41.0); MEAN CELL VOLUME 90.8 fl (80.0-94.0); MEAN CORPUSCULAR HGB 28.4 pg (27.0-31.0); MEAN CORPUSCULAR HGB CONC 31.3 g/dl (33.0-37.0); MEAN PLATELET VOLUME 9.8 fl (9.6-12.3); MONO # 0.5 10*3/uL (0.1-1.0); MONO % 10.2 % (3.0-9.0); NEUT # 3.4 10*3/uL (2.3-7.9); NEUT % 65.6 % (47.0-73.0); PLATELET COUNT AUTOMATED 212 10*3/uL (130-400); RED BLOOD COUNT 3.27 10*6/uL (4.50-5.90); RED CELL DISTRI WIDTH 14.9 % (0-14.5); WHITE BLOOD COUNT 5.2 10*3/uL (4.8-10.8)
[2017-10-04 07:08] LABS: BUN 18 mg/dl (7-24); CHLORIDE 105 mmol/L (98-107); POTASSIUM 3.8 mmol/L (3.5-5.1); SODIUM 140 mmol/L (136-145)
[2017-10-04 08:00] VITALS: BP 103/57
[2017-10-04 12:00] VITALS: BP 124/66
[2017-10-04 16:00] VITALS: BP 99/63
[2017-10-04 20:00] VITALS: BP 108/79
[2017-10-05] VITALS: BP 115/60
[2017-10-05 08:00] VITALS: BP 107/63
[2017-10-05 12:00] VITALS: BP 100/79
[2017-10-05 16:00] VITALS: BP 113/66
[2017-10-05 20:00] VITALS: BP 109/48
[2017-10-06] VITALS: BP 106/57
[2017-10-06 08:00] VITALS: BP 98/61
[2017-10-06 12:00] VITALS: BP 117/69
[2017-10-06] MEDS ORDERED: FUROSEMIDE10 MG/1 M1 PO (13:20)
== END 2017-10-06 14:15 | disposition home or self-care (01) | DRG 291 ==
LOC: ED 01:00 → 5E 02:11 → EDHOLD 02:11 → 5E 02:15
PROVIDERS: Emergency Medicine Emergency Medical Services; Family Medicine; Internal Medicine Nephrology
PROC: 30233N1 Transfusion of Nonautologous Red Blood Cells into Peripheral Vein, Percutaneous Approach (ICD-10-PCS; principal; 2017-10-03)
DX: I13.0 Hypertensive heart and chronic kidney disease with heart failure and stage 1 through stage 4 chronic kidney disease, or unspecified chronic kidney disease (principal); I50.23 Acute on chronic systolic (congestive) heart failure; E11.22 Type 2 diabetes mellitus with diabetic chronic kidney disease; E11.65 Type 2 diabetes mellitus with hyperglycemia; I25.810 Atherosclerosis of coronary artery bypass graft(s) without angina pectoris; E87.8 Other disorders of electrolyte and fluid balance, not elsewhere classified; D64.9 Anemia, unspecified; J43.9 Emphysema, unspecified; I25.5 Ischemic cardiomyopathy; R07.89 Other chest pain; D72.810 Lymphocytopenia; D72.821 Monocytosis (symptomatic); E66.3 Overweight; F32.9 Major depressive disorder, single episode, unspecified; K21.9 Gastro-esophageal reflux disease without esophagitis; F41.9 Anxiety disorder, unspecified; Z96.653 Presence of artificial knee joint, bilateral; N18.3 Chronic kidney disease, stage 3 (moderate); Z88.8 Allergy status to other drugs, medicaments and biological substances; Z79.82 Long term (current) use of aspirin; Z79.4 Long term (current) use of insulin; Z79.84 Long term (current) use of oral hypoglycemic drugs; Z79.899 Other long term (current) drug therapy; Z90.49 Acquired absence of other specified parts of digestive tract; Z95.818 Presence of other cardiac implants and grafts; Z95.1 Presence of aortocoronary bypass graft; Z87.891 Personal history of nicotine dependence; Z82.49 Family history of ischemic heart disease and other diseases of the circulatory system; Z80.42 Family history of malignant neoplasm of prostate; I25.2 Old myocardial infarction; Z68.27 Body mass index [BMI] 27.0-27.9, adult

== ENCOUNTER 2018-06-10 09:22 | Inpatient (IN) | payer MEDICARE ==
[~2018-06-10] VITALS: Ht 195.6 cm; Wt 103.0 kg
--- NOTE | ~2018-06-10 | EKG ---
[place], [place] ELECTROCARDIOGRAM REPORT NAME: MERNA ABARCA UNIT #: [id number] ROOM: 505 DOCTOR: JOHNNY DRAFT REPORT BIRTHDATE: [birth year] [facility] Test Date: 2018-06-10 Test Time: 09:49:03 Pat Name: MERNA ABARCA Department: Room: 505 Gender: M Ski Lift Attendant: JAVIER : 1945 Requested By: JOSELUIS BHAGAT Order Number: [id number] Reading MD: Gulshan Downing MD Measurements Intervals [place] Rate: 65 P: 4 [place]: 164 QRS: 222 QRSD: 145 T: 64 QT: 457 QTc: 476 Interpretive Statements A-V dual-paced complexes w/ some inhibition No further analysis attempted due to paced rhythm Compared to ECG 04/06/2018 11:46:37 Sinus rhythm no longer present Ventricular premature complex(es) no longer present First degree AV block no longer present Myocardial infarct finding no longer present Electronically Signed On 06-23-2018 8:12:16 PST by Gulshan Downing MD CM:EKGRPT:ELECTROCARDIOGRAM REPORT [id number] JOSELUIS TURNER DRAFT REPORT JOSELUIS BHAGAT M.D.
[~2018-06-10 09:22] MED LIST changes: +FUROSEMIDE10 MG/1 M1 PO; +LASIX40 MG PO; +LORATADINE10 M3 PO; +LORAZEPAM0.5 MG PO; +LOSARTAN POTASS25 M1 PO; +METFORMIN HYD1000 MG PO; +METOPROLOL TART50 M1 PO; +Ranitidine Hyd150 MG PO; +VITAMIN D-32000 UNI1 PO; +ZOFRAN4 MG PO
[2018-06-10 09:24] VITALS: BP 146/73
[2018-06-10 10:02] LABS: BASO % 0.4 % (0.0-1.0); EOS # 0.1 10*3/uL (0.0-0.4); EOS % 1.8 % (1.0-4.0); HEMATOCRIT 34.3 % (42.0-52.0); HEMOGLOBIN 11.1 g/dl (14.0-18.0); LYMPH # 0.7 10*3/uL (1.3-4.4); LYMPH % 13.3 % (27.0-41.0); MEAN CELL VOLUME 85.3 fl (80.0-94.0); MEAN CORPUSCULAR HGB 27.6 pg (27.0-31.0); MEAN CORPUSCULAR HGB CONC 32.4 g/dl (33.0-37.0); MEAN PLATELET VOLUME 9.4 fl (9.6-12.3); MONO # 0.4 10*3/uL (0.1-1.0); MONO % 8.2 % (3.0-9.0); NEUT # 3.7 10*3/uL (2.3-7.9); NEUT % 75.5 % (47.0-73.0); PLATELET COUNT AUTOMATED 189 10*3/uL (130-400); RED BLOOD COUNT 4.02 10*6/uL (4.50-5.90); RED CELL DISTRI WIDTH 18.4 % (0-14.5); WHITE BLOOD COUNT 4.9 10*3/uL (4.8-10.8)
[2018-06-10 10:20] LABS: ALBUMIN 3.7 gm/dl (3.1-4.5); ALKALINE PHOSPHATASE 50 U/L (45-117); BUN 27 mg/dl (7-24); CHLORIDE 106 mmol/L (98-107); CREATININE 1.15 mg/dL (0.70-1.30); POTASSIUM 4.2 mmol/L (3.5-5.1); SGOT/AST 14 IU/L (3-35); SGPT/ALT 20 U/L (12-78); SODIUM 136 mmol/L (136-145); TOTAL PROTEIN 6.8 gm/dL (6.4-8.2)
[2018-06-10 10:21] LABS: TROPONIN I < 0.015 ng/ml (<0.045)
[2018-06-10 10:45] VITALS: BP 121/64
[2018-06-10 11:34] VITALS: BP 131/61
--- NOTE | 2018-06-10 11:42 | NUR ---
ATTEMPTED TO CALL NURSE FOR TRANSPORT TO THE FLOOR. NO ANSWER WILL TRY AGAIN.
--- NOTE | 2018-06-10 11:52 | NUR ---
PATIENT TAKEN TO 5TH FLOOR AT THIS TIME. BEDSIDE REPORT GIVEN TO VERN COLEMAN.
[2018-06-10 11:56] VITALS: BP 146/80
--- NOTE | 2018-06-10 12:00 | NUR ---
PATIENT HALTED FROM BEING TAKEN TO THE FLOOR AT THIS TIME STILL MEDICAL STUDENTS STILL IN THE ROOM.
--- NOTE | 2018-06-10 12:13 | NUR ---
CALLED AND NOTIFIED VERN COLEMAN AGAIN AT THIS TIME TO NOTIFY OF PATIENT STILL IN THE ER.
--- NOTE | 2018-06-10 12:15 | NUR ---
PATIENT TAKEN TO THE FLOOR AT THIS TIME. BEDSIDE GIVEN TO VERN RN AT THIS TIME.
--- NOTE | 2018-06-10 12:37 | NUR ---
Time: 1214 A 72 year old MALE admitted to 5E under services of DR. VAN GILL,DALJIT. Pt. arrived via stretcher from ER. Chief complaint: DIZZINESS, NAUSEA/VOMITING AND DIARRHEA. MARCIE ENNIS
[2018-06-10] MEDS ORDERED: ZESTRIL2.5 MG PO (13:03)
--- NOTE | 2018-06-10 13:04 | NUR ---
MED REC UPDATED/CORRECTED USING MEDICATION LIST PROVIDED BY THE PATIENT.
[2018-06-10 16:00] VITALS: BP 116/62
--- NOTE | 2018-06-10 16:38 | NUR ---
Medicated with zofran iv per prn order for complaints of nausea.
[2018-06-10 20:00] VITALS: BP 133/80
--- NOTE | 2018-06-10 20:00 | NUR ---
VOICES NO C/O NAUSEA AT THIS TIME. IV FLUIDS INFUSING ORDERED; SITE ASYMPTOMATIC. PT. VOICES NO C/O AT THIS TIME. CALL LIGHT WITHIN REACH.
--- NOTE | 2018-06-10 22:00 | NUR ---
BLOOD SUGAR 155; PT. REFUSING COVERAGE BUT TOOK 10 UNITS.
[2018-06-11] VITALS: BP 107/57
[2018-06-11 06:13] LABS: BASO % 0.3 % (0.0-1.0); EOS # 0.1 10*3/uL (0.0-0.4); EOS % 2.2 % (1.0-4.0); HEMATOCRIT 34.9 % (42.0-52.0); HEMOGLOBIN 11.1 g/dl (14.0-18.0); LYMPH # 1.2 10*3/uL (1.3-4.4); LYMPH % 18.4 % (27.0-41.0); MEAN CELL VOLUME 87.7 fl (80.0-94.0); MEAN CORPUSCULAR HGB 27.9 pg (27.0-31.0); MEAN CORPUSCULAR HGB CONC 31.8 g/dl (33.0-37.0); MEAN PLATELET VOLUME 9.4 fl (9.6-12.3); MONO # 0.5 10*3/uL (0.1-1.0); MONO % 6.9 % (3.0-9.0); NEUT # 4.7 10*3/uL (2.3-7.9); NEUT % 71.7 % (47.0-73.0); PLATELET COUNT AUTOMATED 194 10*3/uL (130-400); RED BLOOD COUNT 3.98 10*6/uL (4.50-5.90); RED CELL DISTRI WIDTH 18.7 % (0-14.5); WHITE BLOOD COUNT 6.5 10*3/uL (4.8-10.8)
[2018-06-11 06:56] LABS: ALBUMIN 3.5 gm/dl (3.1-4.5); ALKALINE PHOSPHATASE 46 U/L (45-117); BUN 18 mg/dl (7-24); CHLORIDE 109 mmol/L (98-107); CHOLESTEROL 202 mg/dL (<200); CREATININE 1.23 mg/dL (0.70-1.30); HDL CHOLESTEROL 32 mg/dl (40-60); LDL CHOLESTEROL 141 mg/dL (9-159); PHOSPHOROUS 3.6 mg/dL (2.5-4.9); SGOT/AST 17 IU/L (3-35); SGPT/ALT 20 U/L (12-78); SODIUM 143 mmol/L (136-145); TRIGLYCERIDES 146 mg/dl (<150); VLDL CHOLESTEROL 29 mg/dL (6-40)
[2018-06-11 08:00] VITALS: BP 131/78
[2018-06-11 08:55] LABS: VITAMIN D, 25-HYDROXY 38.5 ng/mL (30-100)
--- NOTE | 2018-06-11 09:00 | NUR ---
Resource Management Specialist in to talk to patient. Patient states lives at home alone with his sister checking in on him. There are 0 steps in the home. Physician: Dr. Gulshan Downing [facility]acy: [facility] Home health services: none Patient's level of ADLs: INDEPENDENT Patient has working utilities: yes DME: none Follow-up physician's appointment after d/c: he prefers to make his own follow up appt after discharge Does patient want to access PORTAL?: no Discharge plan discussed with patient. He lives at home alone with his dog and his sister checking in on him. He is independent in his ADLs and ambulation. Discussed home health care services and he denies any home needs at this time. When medically stable he will be discharged to home. NICHOLAS JANG
--- NOTE | 2018-06-11 10:38 | NUR ---
DR. COLEMAN IS OUT OF TOWN, DR BAIG IS COVERING. JOVANNI TO READ ECHO.
[2018-06-11 11:30] VITALS: BP 174/76
--- NOTE | 2018-06-11 11:32 | NUR ---
PT UNAVAILABLE AT THIS TIME, OFF UNIT, PT IN ULTRASOUND. NO AEROSOL TREATMENT GIVEN.
[2018-06-11 12:00] VITALS: BP 174/76
--- NOTE | 2018-06-11 12:13 | NUR ---
NOTIFIED DR VELARDE THAT PT BP WAS 174/76 MANUALLY. ALSO NOTIFIED HIM THAT HOME MEDS LIST WAS RECONCILED WITH MED CLAIM HX AND WITH PT AT BEDSIDE.DR VELARDE STATED HE "WOULD NOTIFIY DR ALVARES".
--- NOTE | 2018-06-11 12:42 | NUR ---
DR BAUTISTA ROUNDED AND SEEN PT. ORDER RECIEVED TO D/C FLUIDS.
[2018-06-11 16:00] VITALS: BP 118/63
[2018-06-11 20:00] VITALS: BP 116/62
[2018-06-12] VITALS: BP 114/56
[2018-06-12 08:00] VITALS: BP 102/42
--- NOTE | 2018-06-12 08:00 | NUR ---
Maintenance Of Way Clerk in to see patient. No new needs or request at this time. He denies any home needs. When medically stable he will be discharged to home.
[2018-06-12 08:45] LABS: ALBUMIN 3.5 gm/dl (3.1-4.5); ALKALINE PHOSPHATASE 48 U/L (45-117); BUN 16 mg/dl (7-24); CHLORIDE 107 mmol/L (98-107); CREATININE 1.24 mg/dL (0.70-1.30); POTASSIUM 4.1 mmol/L (3.5-5.1); SGOT/AST 14 IU/L (3-35); SGPT/ALT 21 U/L (12-78); SODIUM 141 mmol/L (136-145)
--- NOTE | 2018-06-12 09:32 | NUR ---
PT SITTING UP IN BED. RESPS EASY ON RA.DENIES ANY C/O AT THIS TIME.CALL LIGHT IN REACH.
[2018-06-12 12:00] VITALS: BP 120/57
[2018-06-12] MEDS ORDERED: DOXYCYCLINE HY100 M3 PO (14:10)
[2018-06-12] MEDS ORDERED: LIPITOR40 MG PO (14:10)
--- NOTE | 2018-06-12 15:21 | NUR ---
Discharge instructions reviewed with patient/family. Patient receptive and verbalizes understanding. Follow-up care arranged. Written instructions given to patient/family. BEVERLEY BROUSSARD
== END 2018-06-12 15:21 | disposition home or self-care (01) | DRG 69 ==
LOC: ED 09:22 → EDHOLD 11:30 → 5E 11:30
PROVIDERS: Emergency Medicine; Student in an Organized Health Care Education/Training Program; ADMIT Internal Medicine
DX: G45.9 Transient cerebral ischemic attack, unspecified (principal); I42.9 Cardiomyopathy, unspecified; I50.22 Chronic systolic (congestive) heart failure; I13.0 Hypertensive heart and chronic kidney disease with heart failure and stage 1 through stage 4 chronic kidney disease, or unspecified chronic kidney disease; A08.4 Viral intestinal infection, unspecified; H83.09 Labyrinthitis, unspecified ear; R27.0 Ataxia, unspecified; I25.10 Atherosclerotic heart disease of native coronary artery without angina pectoris; F32.9 Major depressive disorder, single episode, unspecified; E11.22 Type 2 diabetes mellitus with diabetic chronic kidney disease; F41.9 Anxiety disorder, unspecified; Z96.653 Presence of artificial knee joint, bilateral; K21.9 Gastro-esophageal reflux disease without esophagitis; J43.9 Emphysema, unspecified; E55.9 Vitamin D deficiency, unspecified; N18.9 Chronic kidney disease, unspecified; E11.65 Type 2 diabetes mellitus with hyperglycemia; Z79.4 Long term (current) use of insulin; Z95.1 Presence of aortocoronary bypass graft; Z87.01 Personal history of pneumonia (recurrent); Z90.49 Acquired absence of other specified parts of digestive tract; Z88.1 Allergy status to other antibiotic agents; I25.2 Old myocardial infarction; Z95.5 Presence of coronary angioplasty implant and graft; Z87.891 Personal history of nicotine dependence; Z80.42 Family history of malignant neoplasm of prostate; Z82.49 Family history of ischemic heart disease and other diseases of the circulatory system; Z79.82 Long term (current) use of aspirin; Z79.899 Other long term (current) drug therapy; Z79.02 Long term (current) use of antithrombotics/antiplatelets

== ENCOUNTER → 2018-07-22 | Outpatient (CLI) | payer MEDICARE ==
[~2018-07-22] MED LIST changes: +AMOXICILLIN500 M2 PO; +DOXYCYCLINE HY100 M3 PO; +FUROSEMIDE40 MG PO; +LIPITOR40 MG PO; +PANTOPRAZOLE SO40 MG PO; +ZESTRIL2.5 MG PO
== END | disposition home or self-care (01) ==
LOC: LAB 16:40
DX: B34.9 Viral infection, unspecified (principal)

== ENCOUNTER 2018-11-03 09:44 | Emergency (ER) | payer MEDICARE ==
[~2018-11-03] VITALS: Ht 195.5 cm; Wt 106.1 kg
[~2018-11-03 09:44] MED LIST changes: -AMOXICILLIN500 M2 PO; -FUROSEMIDE40 MG PO; -PANTOPRAZOLE SO40 MG PO
[2018-11-03 09:47] VITALS: BP 145/68
[2018-11-03] MEDS ORDERED: AMOXICILLIN500 M2 PO (09:57)
== END 2018-11-03 10:15 | disposition home or self-care (01) ==
LOC: ED 09:44
DX: J06.9 Acute upper respiratory infection, unspecified (principal); H10.9 Unspecified conjunctivitis; J44.9 Chronic obstructive pulmonary disease, unspecified; Z88.1 Allergy status to other antibiotic agents; Z79.899 Other long term (current) drug therapy; Z79.82 Long term (current) use of aspirin; Z87.891 Personal history of nicotine dependence

== ENCOUNTER 2018-11-05 21:23 | Inpatient (IN) | payer MEDICARE ==
[~2018-11-05] VITALS: Ht 195.6 cm; Wt 99.4 kg
--- NOTE | ~2018-11-05 | EKG ---
[place], [place] ELECTROCARDIOGRAM REPORT NAME: MERNA ABARCA UNIT #: [id number] ROOM: 526 DOCTOR: JOHNNY DRAFT REPORT BIRTHDATE: [birth year] [facility] Test Date: 2018-11-07 Test Time: 11:26:35 Pat Name: MERNA ABARCA Department: Room: 52 1 Gender: M Supervisor [employer]: : 1945 Requested By: JUSTIN MEDINA Order Number: [id number] Reading MD: Justin Reynolds MD Measurements Intervals [place] Rate: 83 P: 249 [place]: 65 QRS: -79 QRSD: 140 T: 130 QT: 471 QTc: 554 Interpretive Statements Atrial-sensed ventricular-paced complexes No further analysis attempted due to paced rhythm Compared to ECG 06/10/2018 09:49:03 No significant changes Electronically Signed On 11-09-2018 10:51:58 PDT by Justin Reynolds MD CM:EKGRPT:ELECTROCARDIOGRAM REPORT 1126 1051 JUSTIN MEDINA MD EPIPHANY DRAFT REPORT JUSTIN MEDINA MD
--- NOTE | ~2018-11-05 | PR ---
[place], [place] PROGRESS NOTE [id number] UNIT #: [id number] ROOM: 526 DOCTOR: MICHELLE MEDINA MD,JUSTIN BIRTHDATE: [birth year] DOS: 11/09/2018 SUBJECTIVE: He has not been reporting any further symptoms of hemoptysis for bronchoscopy assessment today because of the current symptoms presumably stated for the hemoptysis were not documented in this hospitalization. He has not been noted symptoms of fever or chills. Denies symptoms of chest pain. Denies symptoms of acute shortness of breath at rest with exertion and shortness of breath was noted. There were no symptoms of the feet, headache or diplopia, edema or pain of the lower extremities. Remaining systems were reviewed with the patient, they were noted all negative. The patient currently noted n.p.o. past midnight. OBJECTIVE: VITAL SIGNS: For the patient this morning is normal temperature, respiratory rate of 20, heart rate 98, blood pressure of 124/78-110/46. Pulse oxygen saturation at rest on room air was 97% saturation. HEENT: Examination shows head was atraumatic. Eyes nonicterus. NECK: Supple. CARDIOVASCULAR: S1, S2 is audible. LUNGS: The patient was recorded with the decreased breaths in the lungs bilaterally. There is no wheezing or crackles. ABDOMEN: Soft, nontender, bowel sounds present. EXTREMITIES: The patient was noted without acute edema. MUSCULOSKELETAL: The patient noted without any acute deformities. CENTRAL NERVOUS SYSTEM: The patient's cranial nerves 2-12 intact. LABORATORY DATA: There were no labs done today. Culture of the sputum, which were done on 11/07/2017, spontaneous sputum culture noted normal max. IMPRESSION: 1. The patient's hemoptysis at present time, etiology unclear. Further examination is needed. For that, the patient needs a bronchoscopy. 2. Coughing. 3. Acute exacerbation of chronic obstructive pulmonary disease. 4. Chronic obesity. PLAN OF MANAGEMENT: Continuation of the patient's current therapy at this time. Proceed with fibrobronchoscopy possible, consider restriction of the Solu-Medrol. The patient had a bronchoscopy as well. Other additional treatment changes will be made based on progression of the illness. Continue as usual plan of management, care plan, otherwise as in progress. [place], [place] PROGRESS NOTE NAME: MERNA ABARCA UNIT #: [id number] ROOM: 526 DOCTOR: JUSTIN TRAMMELL MD BIRTHDATE: [birth year] JUSTIN MARTINEZ MD CM:PNTRANS [id number] 00 JUSTIN MEDINA MD 11/09/18 1902 interface
--- NOTE | ~2018-11-05 | CON ---
[place], [place] REPORT OF CONSULTATION NAME: MERNA ABARCA UNIT #: [id number] ROOM: 526 DOCTOR: JUSTIN TRAMMELL MD BIRTHDATE: [birth year] DOS: 11/07/2018 PULMONARY CONSULTATION, EVALUATION AND MANAGEMENT CONSULTATION REQUESTED BY: Dr. Paige Downing. REASON FOR CONSULTATION: Possibility of acute pneumonia with ongoing acute hemoptysis intermittently. HISTORY OF PRESENT ILLNESS: A 73-year-old white male who has known to me only once seen in the hospital several years ago for the management of acute exacerbation of chronic obstructive pulmonary disease. The patient has been admitted to the hospital under the care of Dr. Paige Downing. The patient's original symptom, he presented to the hospital and admitted to the hospital on 11/06/2018. He has developed symptoms of increasing cough with a small amount of hemoptysis reported. I described as a small "hunks" at home. The symptom of the hemoptysis reported at 3 or 4 times a day and others. He was also noticed with symptoms of having increased shortness of breath that occurs with exertion. The patient denies any symptoms of chest pain, but complains of wheezing. He has been admitted to the hospital for further care for assessment of the current problems. The patient denies symptoms of chest trauma. REVIEW OF SYSTEMS: CONSTITUTIONAL SYMPTOMS: Fatigue and tiredness noted without any symptoms of fever or chills. EYES: Denies any burning, redness, or tenderness. EARS, NOSE, THROAT SYMPTOMS: Denies sore throat, hoarseness, otalgia, postnasal drainage. CARDIOVASCULAR: Denies any anginal pain, edema or pain of the lower extremities. GASTROINTESTINAL: Denies dysphagia, nausea, vomiting, diarrhea, abdominal pain. Reported with symptoms of hematemesis and nausea previously with the vomiting that has been resolved. The patient underwent a GI workup on 11/06/2018, upper endoscopy was complete. The current GI symptom noted with hiatal hernia and gastritis. GENITOURINARY: No dysuria, suprapubic pain, and hematuria. MUSCULOSKELETAL: No acute joint pain, redness, or tenderness. SKIN: Did not reported any lesions or rashes. MUSCULOSKELETAL: The patient denies any joint pain, redness, or tenderness. CENTRAL NERVOUS SYSTEM: Denies dizziness, headache, diplopia, syncopal episodes. Remaining systems were reviewed with the patient, they were noted all negative. PAST MEDICAL HISTORY: 1. History of coronary artery disease with multiple previous interventions. 2. The patient with a history of cardiomyopathy. 3. Congestive heart failure with systolic dysfunction. 4. Chronic obstructive pulmonary disease. 5. Type 2 diabetes mellitus. [place], [place] REPORT OF CONSULTATION NAME: MERNA ABARCA UNIT #: [id number] ROOM: 526 DOCTOR: MICHELLE MEDINA MD,JUSTIN BIRTHDATE: [birth year] 6. Essential hypertension. 7. Previous history of gastrointestinal bleeding. 8. Transient ischemic attack. PAST SURGICAL HISTORY: 1. Cardiac catheterization with several coronary stents intervention. 2. Coronary artery bypass grafting. 3. Automatic implantable cardioverter defibrillator insertion. 4. Appendectomy. 5. Partial colectomy that was done normally with a small-bowel obstruction and perforation of the intestine, recording exploratory laparotomy with partial colectomy and colostomy and then later reversal. SOCIAL HISTORY: The patient is , has no children. Noted with tobacco use, started as a teenager up to 3 packs of cigarettes per day until 1979. 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 Denies any history of alcohol use or illicit drugs. FAMILY HISTORY: The patient's father at the age of 72 years with complication of prostate cancer, congestive heart failure. Mother at the age of an 86-year-old with complications of congestive heart failure. HOME MEDICATIONS: From home were listed on admission as Aspirin 81 mg p.o. daily, Lipitor 40 mg daily, vitamin D daily, Plavix daily, ferrous sulfate daily, Lasix daily, NovoLog 70/30 mixture of insulin daily, losartan, metformin, metoprolol tartrate, nitroglycerin sublingual, Protonix, and Aldactone. CURRENT MEDICATIONS: Noted as use of vitamin D, Aldactone, metoprolol tartrate, losartan, Lasix, ferrous sulfate, Plavix, Lipitor, Protonix, metformin, Mucinex, Solu-Medrol 40 mg IV b.i.d., DuoNeb q.4 hours, Levaquin, and some other p.r.n. meds. DRUG ALLERGIES: ALLERGY TO CEFAZOLIN CAUSING SEVERE RASH. PHYSICAL EXAMINATION: GENERAL: A 73-year-old male the patient who has been currently sitting on the bed without any distress this morning of assessment. Height of 6 feet 5 inches, weight of 219 pounds, BMI 26. VITAL SIGNS: For the patient as a normal temperature, respiratory rate 16-18, heart rate 82-85, blood pressure 120/64-108/77. Pulse ox saturation on room air at rest was recorded at 98% saturation. HEENT: Head is atraumatic. Eyes, nonicterus. NECK: Supple. CARDIOVASCULAR: S1, S2 was audible. LUNGS: With decreased breath sounds are noted bilaterally with expiratory wheezing. There were no crackles. ABDOMEN: Soft, nontender. Bowel sounds present. EXTREMITIES: The patient was noted without any acute edema, clubbing, cyanosis. MUSCULOSKELETAL: The patient noted without any gross deformities. [place], [place] REPORT OF CONSULTATION NAME: MERNA ABARCA UNIT #: [id number] ROOM: 526 DOCTOR: MICHELLE MEDINA MDJUSTIN BIRTHDATE: [birth year] LABORATORY DATA: CBC on 11/05/2018 in the emergency room, WBC count normal, hemoglobin 11.3, platelet count was normal. PT/PTT noted as normal on 11/05/2018. On 11/05/2018, CMP: BUN 27, creatinine 1.42, glucose 127. AST was 43. CBC that was done yesterday, hemoglobin 10.8, WBC count normal, platelet count normal. CMP that was done on 11/06/2018, BUN 27, creatinine 1.34, lactic acid was 0.7 yesterday. The chest x-ray does not show any acute pulmonary abnormalities. Coronary artery bypass grafting changes noted as well as AICD in the left chest. CT scan of the chest, which was done without contrast on 11/05/2018 in the Emergency Room were reviewed, shows small area of ground glass opacity with atelectasis noted in the right lower lung. Changes of chronic obstructive pulmonary disease with centrilobular emphysema were present. There was no lymphadenopathy noted in the mediastinum as well. The hilar area cannot be clearly assessed because of lack of the IV contrast. IMPRESSION: 1. The patient will be currently admitted to the hospital with diagnosis reported as intermittent small hemoptysis at this time, the etiology remains unclear to me. The possibility of small pneumonia right lower lobe cannot be completely excluded. 2. The patient with hematemesis noted on admission as well, which has been assessed with the upper endoscopy noted with hiatal hernia and gastritis without any active bleeding. 3. History of long-term tobacco use. 4. The patient with acute exacerbation of chronic obstructive pulmonary disease. 5. The patient with history of cardiomyopathy, was also noted with systolic dysfunction and advanced coronary artery disease as well, but there was no active manifestations of congestive heart failure was seen. 6. Other medical problems noted in my past history. PLAN OF TREATMENT: The patient will be assessed at this time with bronchoscopy that would be done on Friday morning, n.p.o. past midnight status will be achieved. The patient was agreeable for the procedure as the risk and benefits were done. Bronchodilator in the meantime and corticosteroid be currently continued. No changes will be done. The culture of the sputum was also ordered. TB Gold test was also ordered as a precaution because of the current hemoptysis. Other therapy, plan of management. Additional treatment changes will be made based on progression of the illness. Hemoptysis resulting from the postnasal drip with the bleeding or epistaxis cannot be completely excluded and remains in consideration. Other therapy, plan of management. Supportive care. Thanks for allowing me to participate in the care of this patient. [place], [place] REPORT OF CONSULTATION NAME: MERNA ABARCA UNIT #: [id number] ROOM: 526 DOCTOR: JUSTIN TRAMMELL MD BIRTHDATE: [birth year] JUSTIN MARTINEZ MD CM:CONSTR:REPORT OF CONSULTATION 1415 11/18/18 0850 interface
--- NOTE | ~2018-11-05 | PR ---
[place], [place] PROGRESS NOTE NAME: MERNA ABARCA UNIT #: [id number] ROOM: 526 DOCTOR: MICHELLE MEDINA MD,JUSTIN BIRTHDATE: [birth year] DOS: 11/08/2018 SUBJECTIVE: The patient noted comfortable at this time, resting in the bed this morning of assessment, has not been noted with any ongoing acute respiratory complaints. There were no symptoms of hemoptysis stated. Cough has been noted with some sputum expectoration. There were no symptoms of fever or chills. PHYSICAL EXAMINATION: VITAL SIGNS: This morning is normal temperature, respiratory rate 18, heart rate 66, blood pressure 124/64-104/47. Pulse oxygen saturation on room air 98% saturation recorded. HEENT: Examination shows head was atraumatic. Eyes nonicterus. NECK: Supple. CARDIOVASCULAR: S1, S2 audible. LUNGS: Without any wheezing or crackles. ABDOMEN: Soft, nontender. Bowel sounds present. EXTREMITIES: No new change. IMPRESSION: Stable respiratory status was noted at the present time with intermittent hemoptysis, acute exacerbation of chronic obstructive pulmonary disease. Culture of the sputum from yesterday noted as normal max. The Gram stain, moderate white blood cells, few epithelial cells, moderate gram-positive cocci in pairs, chains and clusters. PLAN OF MANAGEMENT: Continue current treatment therapy, plan of management as in progress. Bronchoscopy planned to be done in the morning. No immediate treatment changes will be needed today. JUSTIN MARTINEZ MD CM:PNTRANS [id number] [id number] JUSTIN MEDINA MD 11/08/18 2336 interface
--- NOTE | ~2018-11-05 | PROC NOTE ---
[place], [place] PROCEDURE NOTE NAME: MERNA ABARCA UNIT #: [id number] ROOM: 526 DOCTOR: MICHELLE MEDINA MD,JUSTIN BIRTHDATE: [birth year] DOS: 11/09/2018 PROCEDURE: Fiberoptic bronchoscopy. PREOPERATIVE DIAGNOSIS: Hemoptysis, unclear etiology with nonproductive cough. POSTOPERATIVE DIAGNOSES: There was no evident endobronchial lesion noted or any active bleeding or mucosal ulceration explaining the current hemoptysis stated by the patient. There were no clotted bloody secretion noted in the endobronchial tree as well. The procedure was done under local MAC. Evidence of tracheobronchitis was seen. Mucous impaction noted mild to moderate. PROCEDURE DESCRIPTION: Informed consent obtained from the patient. He was brought to the OR and placed in supine position. Conscious sedation administered by the Anesthesia Department. After achieving proper sedation, airway introduced into the mouth. Bronchoscope advanced to the airway into laryngeal area. Epiglottis and vocal cords were seen. Vocal cords were moving symmetrically with movements. Bronchoscope advanced to vocal cord into tracheal lumen. Tracheal lumen was noted with moderate amount of mucoid secretions suctioned out to the anita level. The right upper, right middle, right lower, left upper, lingular lower lobe bronchi were all examined. Mucus impaction at endobronchial tree subsegment. There were no endobronchial obstructing lesion noted in the second generation bronchi. Procedure was tolerated by the patient without difficulty. Postoperative finding will be discussed with the patient once the patient recovered the effects of acute sedation. JUSTIN MARTINEZ MD CM:PROCNOTE:PROCEDURE NOTE 1250 [id number] JUSTIN MEDINA MD
--- NOTE | ~2018-11-05 | CON ---
[place], [place] REPORT OF CONSULTATION NAME: MERNA ABARCA UNIT #: [id number] ROOM: 526 DOCTOR: JN JAIME MD BIRTHDATE: [birth year] DOS: 11/06/2018 HISTORY OF PRESENT ILLNESS: A 73-year-old patient, who was presented with history of congestive heart failure, COPD, cardiac dysrhythmia, hematemesis, nausea, vomiting and we have been asked for assessment of the patient for hematemesis. PAST MEDICAL HISTORY: COPD, chronic renal insufficiency, congestive failure, cardiomyopathy, anxiety, gastroesophageal reflux, hemorrhoid, TIAs, and myocardial infarction. PAST SURGICAL HISTORY: Colostomy and reversal of colon polypectomy, colon resection, bilateral knee replacement, appendectomy, CABG. SOCIAL HISTORY: Passive smoker. FAMILY HISTORY: Noncontributory. ALLERGIES: Cefazolin. MEDICATIONS: List has been reviewed. He has been on aspirin, and Plavix amongst the others. REVIEW OF SYSTEMS: HEENT: Denies double vision, blurred vision. RESPIRATORY: Denies shortness of breath. CARDIOVASCULAR: No chest pain. DIGESTIVE SYSTEM: Vomiting some blood in the emesis. PHYSICAL EXAMINATION: VITAL SIGNS: Stable. HEENT: Within normal. NECK: Supple. No thyromegaly. No cervical lymphadenopathy. CHEST: Symmetric anatomy, equal expansion. No wheeze, no rhonchi. HEART: Normal sinus rhythm. No gallop, no murmur. ABDOMEN: Soft. No hepato-organomegaly. Bowel sounds present. EXTREMITIES: No cyanosis. No pedal edema. NEUROLOGIC: Alert, fully oriented to time, place, and person. LABORATORY DATA: Reviewed. Records reviewed. Latest Comprehensive metabolic panel: BUN and creatinine 27 and 1.3, GFR greater than 60. Chemistry normal. Hemoglobin A1c 6. Lactic acid 0.7. CBC differential, H and H of 10 and 32. Differential within normal limits. Labs reviewed, records reviewed. PLAN AND DISCUSSION: Endoscopic assessment. [place], [place] REPORT OF CONSULTATION NAME: MERNA ABARCA UNIT #: [id number] ROOM: 526 DOCTOR: JN JAIME MD BIRTHDATE: [birth year] JN JAIME MD CM:CONSTR:REPORT OF CONSULTATION 1803 11/18/18 0849 interface
--- NOTE | ~2018-11-05 | PR ---
[place], [place] PROGRESS NOTE NAME: MERNA ABARCA UNIT #: [id number] ROOM: 526 DOCTOR: MICHELLE MEDINA MD,JUSTIN BIRTHDATE: [birth year] DOS: 11/10/2018 PULMONARY PROGRESS NOTE SUBJECTIVE: The patient has been noted comfortable at this time, resting comfortably, had bronchoscopy done yesterday has not been noted any major episodes of hemoptysis, small bloody secretion. The patient expected post-bronchoscopy, which is a normal finding. He has felt that there was improvement in overall respiratory status. OBJECTIVE: GENERAL: This morning, the patient is comfortable, resting. The patient better noted. VITAL SIGNS: Normal temperature, respiratory rate 20, heart rate 54, blood pressure 131/66. Pulse ox saturation on room air 97% saturation. HEENT: Examination shows head was atraumatic. Eyes nonicterus. NECK: Supple. CARDIOVASCULAR: S1, S2 audible. LUNGS: Noted without wheeze or crackles. ABDOMEN: Soft, nontender. Bowel sounds present. EXTREMITIES: No new change. LABORATORY DATA: Culture of the bronchial washing still noted as normal max. IMPRESSION: 1. The patient with no evidence of hemoptysis. The patient has been noted without any endobronchial lesions as well. 2. The patient with chronic obstructive pulmonary disease. PLAN OF TREATMENT: The patient could be discharged home. The patient on oral antibiotic could be followed up in the office as needed. JUSTIN MARTINEZ MD CM:PNTRANS 1250 0049 JUSTIN MEDINA MD 11/11/18 0050 interface
--- NOTE | ~2018-11-05 | O ---
[place], [place] OPERATIVE NOTE NAME: MERNA ABARCA UNIT #: [id number] ROOM: 526 DOCTOR: JN JAIME MD BIRTHDATE: [birth year] DOS: 11/06/2018 After putting the patient in left lateral position and application of lubricant to the scope, the scope was introduced under direct visualization, advanced through the length of esophagus without difficulty. Esophagus cervicothoracic distally within normal limits. Hiatal hernia was noticed. Gastric pouch was entered, residual. Food in the gastric pouch noticed. No active bleeding was seen. The patient extubated, tolerated the procedure well. IMPRESSION: Hiatal hernia, gastritis, status post photographic series. PLAN AND DISCUSSION: Protonix 40 mg daily, soft diet is recommended. Follow up as outpatient. JN JAIME MD CM:OPRECORD:OPERATIVE NOTE [id number] JN JAIME MD 11/07/18 0402 interface
[~2018-11-05 21:23] MED LIST changes: +AMOXICILLIN500 M2 PO
[2018-11-05 21:24] VITALS: BP 135/72
[2018-11-05 22:12] LABS: BILIRUBIN NEGATIVE (NEGATIVE); BLOOD 1+ (NEGATIVE); CLARITY CLEAR (CLEAR); COLOR YELLOW (YELLOW); GLUCOSE NEGATIVE (NEGATIVE); KETONE NEGATIVE (NEGATIVE); LEUKO ESTERASE NEGATIVE (NEGATIVE); NITRITE NEGATIVE (NEGATIVE); SPECIFIC GRAVITY 1.015 (1.005-1.030); UROBILINOGEN 0.2 E.U./dl (0.2-1.0)
[2018-11-05 22:21] LABS: BACTERIA TRACE; EPITHELIAL CELLS 0-2; WBC 0-2 wbc/hpf (0-5)
[2018-11-05 22:28] LABS: BASO % 0.2 % (0.0-1.0); EOS # 0.1 10*3/uL (0.0-0.4); EOS % 0.8 % (1.0-4.0); HEMATOCRIT 33.5 % (42.0-52.0); HEMOGLOBIN 11.3 g/dl (14.0-18.0); LYMPH # 0.7 10*3/uL (1.3-4.4); LYMPH % 8.1 % (27.0-41.0); MEAN CELL VOLUME 91.5 fl (80.0-94.0); MEAN CORPUSCULAR HGB 30.9 pg (27.0-31.0); MEAN CORPUSCULAR HGB CONC 33.7 g/dl (33.0-37.0); MEAN PLATELET VOLUME 9.8 fl (9.6-12.3); MONO % 11.7 % (3.0-9.0); NEUT # 6.6 10*3/uL (2.3-7.9); NEUT % 78.7 % (47.0-73.0); PLATELET COUNT AUTOMATED 193 10*3/uL (130-400); RED BLOOD COUNT 3.66 10*6/uL (4.50-5.90); RED CELL DISTRI WIDTH 12.7 % (0-14.5); WHITE BLOOD COUNT 8.4 10*3/uL (4.8-10.8)
[2018-11-05 22:39] LABS: ACT PARTIAL THROMBO TIME 30.1 SECONDS (20.0-32.1)
[2018-11-05 22:42] LABS: ALBUMIN 3.4 gm/dl (3.1-4.5); CREATININE 1.42 mg/dL (0.70-1.30); POTASSIUM 4.1 mmol/L (3.5-5.1); TOTAL PROTEIN 7.2 gm/dL (6.4-8.2)
[2018-11-05 23:48] VITALS: BP 116/64
[2018-11-06] VITALS (7 sets, daily range): BP systolic 91–126; BP diastolic 33–99
--- NOTE | 2018-11-06 01:33 | NUR ---
PT TO FLOOR AT THIS TIME.
--- NOTE | 2018-11-06 01:44 | NUR ---
A 73, admitted to 5E, under the services of DALJIT Chu MD with a diagnosis of COUGH W/ HEMOPTYSIS. Chief complaint is COUGH. Patient arrived via from ER. Monitor applied. Initial assessment completed. Vital signs taken and recorded. DALJIT CHU MD notified of admission to the unit. Orders received. See assessment for past medical history, medications and allergies. Patient and/or family oriented to unit. [address] visitation policy reviewed. Clothing/patient valuable form completed. MONA ALVARENGA
[2018-11-06 05:12] LABS: BASO % 0.3 % (0.0-1.0); EOS # 0.1 10*3/uL (0.0-0.4); EOS % 1.4 % (1.0-4.0); HEMOGLOBIN 10.8 g/dl (14.0-18.0); LYMPH # 1.1 10*3/uL (1.3-4.4); LYMPH % 13.8 % (27.0-41.0); MEAN CELL VOLUME 92.8 fl (80.0-94.0); MEAN CORPUSCULAR HGB 31.3 pg (27.0-31.0); MEAN CORPUSCULAR HGB CONC 33.8 g/dl (33.0-37.0); MEAN PLATELET VOLUME 9.7 fl (9.6-12.3); MONO % 12.5 % (3.0-9.0); NEUT # 5.5 10*3/uL (2.3-7.9); NEUT % 71.6 % (47.0-73.0); PLATELET COUNT AUTOMATED 186 10*3/uL (130-400); RED BLOOD COUNT 3.45 10*6/uL (4.50-5.90); RED CELL DISTRI WIDTH 12.7 % (0-14.5); WHITE BLOOD COUNT 7.7 10*3/uL (4.8-10.8)
[2018-11-06 05:37] LABS: ALBUMIN 3.2 gm/dl (3.1-4.5); ALKALINE PHOSPHATASE 54 U/L (45-117); BUN 27 mg/dl (7-24); CHLORIDE 105 mmol/L (98-107); CREATININE 1.34 mg/dL (0.70-1.30); POTASSIUM 3.9 mmol/L (3.5-5.1); SGOT/AST 33 IU/L (3-35); SGPT/ALT 43 U/L (12-78); SODIUM 137 mmol/L (136-145); TOTAL PROTEIN 6.9 gm/dL (6.4-8.2)
--- NOTE | 2018-11-06 06:29 | NUR ---
PT IS RESTING COMFORTABLY IN BED AT THIS TIME. THERE DOES NOT APPEAR TO BE ANY S/S OF DISTRESS. RESPS ARE EASY AND NONLABORED. CALL LIGHT IS WITHIN REACH, WILL CONTINUE TO MONITOR.
[2018-11-06] MEDS ORDERED: PANTOPRAZOLE SO40 MG PO (12:36)
[2018-11-06] MEDS ORDERED: FUROSEMIDE40 MG PO (12:40)
--- NOTE | 2018-11-06 21:00 | NUR ---
ASKED DR. DAVENPORT IF IT WAS OK IF PATIENT COULD HAVE A SHOWER, HE STATED THAT THIS WAS OK
[2018-11-07] VITALS: BP 113/56
--- NOTE | 2018-11-07 03:04 | NUR ---
PRN RESTORIL GIVEN FOR PT COMPLAINTS OF SLEEPLESSNESS. WHEN PROVIDED TO PATIENT, PATIENT REQUESTED MORPHINE. INSTRUCTED PATIENT THAT WE ARE UNABLE TO GIVE MORPHNE UNLESS THE PATIENT IS IN PAIN. HE STATED THATS OK HE'LL TAKE THE PILL AND WHEN HE GETS HOME HE WILL JUST GO DOWN THE STREET AND GET SOME DILAUDID
--- NOTE | 2018-11-07 03:08 | NUR ---
24 HR chart check completed.
--- NOTE | 2018-11-07 05:53 | NUR ---
NOTIFIED DR. DAVENPORT PATIENT IS REQUESTING SOMETHING TO HELP EASE HIS COUGH. DR. DAVENPORT STATED HE WOULD PUT IN A ONE TIME DOSE OF TESSLON PERLE
--- NOTE | 2018-11-07 06:08 | NUR ---
WENT TO ADMINISTER TESSELON PERLE FOR "HACKING NON STOP COUGH". PATIENT SLEEPING SOUNDLY. STATED HE WOULD'VE CALLED THE AMBULENCE FOR THIS COUGH. STATED TO PATIENT THAT WE HAVE TO FIND OUT WHAT IS CAUSING THE COUGH AND THAT WE CAN'T JUST STOP IT. PATIENT REPEATED HE WOULD'VE CALLED AN AMBULENCE
--- NOTE | 2018-11-07 10:00 | NUR ---
PHYSICAL THERAPY PT SCREEN COMPLETED TODAY AND PATIENT IS FOUND TO BE UP AD LARRY IN ROOM WITH NO ISSUES INDICATING NEED FOR PT SERVICES. THANK YOU FOR REFERRAL TRACI EGAN PT
[2018-11-07 12:00] VITALS: BP 108/77
[2018-11-07 16:00] VITALS: BP 120/39
[2018-11-07 20:00] VITALS: BP 136/60
--- NOTE | 2018-11-07 20:00 | NUR ---
PT UP WALKING IN HALLS. GAIT IS STEADY, WILL ASSESS ONCE PT RETURNS TO ROOM. NO COMPLAINTS AT THIS TIME. NO SOB NOTED OR ANY SIGNS OF DISTRESS. WILL CONTINUE TO MONITOR.
--- NOTE | 2018-11-07 21:30 | NUR ---
IN TO ROOM PT LAYING IN BED. PT IS AWAKE, ALERT AND ORIENTED. NO S/S OF DISTRESS OR SOB NOTED ON ROOM AIR. PT DENIES PAIN BUT COMPLAINS OF CONSTIPATION. PRN DULCOLAX GIVEN AT THIS TIME. WILL MONITOR FOR EFFECTIVNESS. BED IN LOWEST LOCKED POSITION AND CALL LIGHT WITHIN REACH AND ENCOURAGED.
[2018-11-08] VITALS: BP 104/47
[2018-11-08 08:00] VITALS: BP 124/64
--- NOTE | 2018-11-08 09:17 | NUR ---
UPON ASSESSMENT PT'S IV WAS PULED OUT BY ACCIDENT PER PT. A 22G WAS STARTED IN THE RIGHT FOREARM, BRISK BLOOD RETURN, NORMAL SALINE LOCK. PT TOLERATED PROCEDURE WELL. CONTINUE TO MONITOR THE PT.
[2018-11-08 12:00] VITALS: BP 113/82
[2018-11-08 16:00] VITALS: BP 112/57
[2018-11-08 18:38] LABS: HEMATOCRIT 34.1 % (42.0-52.0); HEMOGLOBIN 11.2 g/dl (14.0-18.0); MEAN CELL VOLUME 93.7 fl (80.0-94.0); MEAN CORPUSCULAR HGB 30.8 pg (27.0-31.0); MEAN CORPUSCULAR HGB CONC 32.8 g/dl (33.0-37.0); MEAN PLATELET VOLUME 9.6 fl (9.6-12.3); PLATELET COUNT AUTOMATED 248 10*3/uL (130-400); RED BLOOD COUNT 3.64 10*6/uL (4.50-5.90); RED CELL DISTRI WIDTH 12.8 % (0-14.5); WHITE BLOOD COUNT 12.9 10*3/uL (4.8-10.8)
[2018-11-08 18:56] LABS: TOTAL CELLS COUNTED 100 #CELLS
[2018-11-08 18:57] LABS: PLATELET SUFFICIENCY NORMAL (NORMAL)
[2018-11-08 19:06] LABS: CREATININE 1.84 mg/dL (0.70-1.30); POTASSIUM 5.2 mmol/L (3.5-5.1)
[2018-11-08 20:00] VITALS: BP 106/83
--- NOTE | 2018-11-08 20:44 | NUR ---
IN TO ROOM, PT SITTING UP IN CHAIR. NO S/S OF SOB OR DISTRESS. PT IS COMPLAINING OF PRODUCITVE COUGH. EDUCATION PROVIDED ABOUT BRONCH TOMORROW. PT IS ALERT, ORIENTED AND COOPERATIVE. NO STATED COMPLAINTS AND DENIES PAIN. CHAIR IS IN LOCKED POSITION AND CALL LIGHT WITHIN REACH AND ENCOURAGED. WILL CONTINUE TO MONITOR.
[2018-11-09] VITALS (8 sets, daily range): BP systolic 88–133; BP diastolic 41–78
--- NOTE | 2018-11-09 08:51 | NUR ---
PATIENT IN OR FOR EGD PROCEDURE.
--- NOTE | 2018-11-09 09:00 | NUR ---
Metal Slitter in to see patient. He is not currently in his room. He is in surgery having a bronchoscopy. Will follow up at a later time.
--- NOTE | 2018-11-09 10:03 | NUR ---
PATIENT RETURNED FROM OR PROCEDURE; SEE SHIFT ASSESSMENT/VITAL SIGNS. RESUMING MEDS AND DIET.
[2018-11-09 11:24] LABS: BASO % 0.1 % (0.0-1.0); EOS % 0.1 % (1.0-4.0); HEMATOCRIT 32.7 % (42.0-52.0); HEMOGLOBIN 10.8 g/dl (14.0-18.0); LYMPH % 9.7 % (27.0-41.0); MEAN CELL VOLUME 93.4 fl (80.0-94.0); MEAN CORPUSCULAR HGB 30.9 pg (27.0-31.0); MEAN PLATELET VOLUME 9.5 fl (9.6-12.3); MONO # 0.7 10*3/uL (0.1-1.0); MONO % 6.2 % (3.0-9.0); NEUT # 8.8 10*3/uL (2.3-7.9); NEUT % 81.9 % (47.0-73.0); PLATELET COUNT AUTOMATED 248 10*3/uL (130-400); RED CELL DISTRI WIDTH 12.9 % (0-14.5); WHITE BLOOD COUNT 10.7 10*3/uL (4.8-10.8)
[2018-11-09 11:49] LABS: CREATININE 1.41 mg/dL (0.70-1.30)
[2018-11-09 12:21] LABS: POTASSIUM 3.9 mmol/L (3.5-5.1)
--- NOTE | 2018-11-09 14:30 | NUR ---
Photo Technician in to talk to patient. Patient states lives at home alone with his sister checking in on him. There are 0 steps in the home. Physician: Dr. Gulshan Downing [facility] Home health services: none Patient's level of ADLs: INDEPENDENT Patient has working utilities: yes DME: none Follow-up physician's appointment after d/c: he prefers to make his own follow up appt after discharge Does patient want to access PORTAL?: no Discharge plan discussed with patient. He lives at home alone with his dog and his sister checking in on him. He is independent in his ADLs and ambulation. Discussed home health care services and he denies any home needs at this time. When medically stable he will be discharged to home. NICHOLAS JAGN
[2018-11-10] VITALS: BP 109/56
--- NOTE | 2018-11-10 03:14 | NUR ---
PT ASLEEP IN BED. RESPIRATIONS EASY. NO S/S OF DISTRESS NOTED. WILL MONITOR. CALL LIGHT IN REACH.
--- NOTE | 2018-11-10 06:10 | NUR ---
PT STILL C/O COUGH. NOTIFIED. NEW ORDER RECEIVED FOR CEPACHOL LOZENGE.
[2018-11-10 08:00] VITALS: BP 131/66
--- NOTE | 2018-11-10 08:30 | NUR ---
Salesperson [employer] Pet [employer] in to see patient. No new needs or request at this time. He denies any home needs. When medically stable he will be discharged to home. Notified Dr. Downing patient has met his inpatient hospital days.
[2018-11-10 09:18] VITALS: BP 130/66
[2018-11-10] MEDS ORDERED: LEVOFLOXACIN500 MG PO (10:49)
--- NOTE | 2018-11-10 11:56 | NUR ---
Discharge instructions reviewed with patient. Patient receptive and verbalizes understanding. Follow-up care arranged. Written instructions given to patient. PATIENT DISCHARGED TO [facility], AMBULATORY, FOR HOME. MARCIE ENNIS
[2018-11-10 15:07] LABS: ACID FAST SPEC PROCESSING Concentration (.)
[2018-11-11 16:12] LABS: TB1 Ag VALUE 0.04 IU/mL (.)
[2018-12-10 08:08] LABS: ORGANISM ID, MOLD Final report (.); RESULT 1 Final Identification (.)
[2018-12-25 07:05] LABS: ACID FAST CULTURE Positive (.); M GORDONAE Not Indicated (.); M KANSASII Not Indicated (.); M TUBERCULOSIS COMPLEX Negative (.)
[2018-12-25 10:46] LABS: M AVIUM COMPLEX Positive (.)
== END 2018-11-10 14:00 | disposition home or self-care (01) | DRG 682 ==
LOC: ED 21:23 → EDHOLD 11-06 00:49 → 5E 11-06 00:49
PROVIDERS: Family Medicine; Internal Medicine Critical Care Medicine; Internal Medicine Nephrology; Nurse Practitioner Family; ADMIT Internal Medicine
PROC: 0DJ08ZZ Inspection of Upper Intestinal Tract, Via Natural or Artificial Opening Endoscopic (ICD-10-PCS; principal; 2018-11-06)
PROC: 0BC58ZZ Extirpation of Matter from Right Middle Lobe Bronchus, Via Natural or Artificial Opening Endoscopic (ICD-10-PCS; 2018-11-09)
PROC: 0BC38ZZ Extirpation of Matter from Right Main Bronchus, Via Natural or Artificial Opening Endoscopic (ICD-10-PCS; 2018-11-09)
PROC: 0BC78ZZ Extirpation of Matter from Left Main Bronchus, Via Natural or Artificial Opening Endoscopic (ICD-10-PCS; 2018-11-09)
PROC: 0BC48ZZ Extirpation of Matter from Right Upper Lobe Bronchus, Via Natural or Artificial Opening Endoscopic (ICD-10-PCS; 2018-11-09)
PROC: 0BC68ZZ Extirpation of Matter from Right Lower Lobe Bronchus, Via Natural or Artificial Opening Endoscopic (ICD-10-PCS; 2018-11-09)
PROC: 0BC88ZZ Extirpation of Matter from Left Upper Lobe Bronchus, Via Natural or Artificial Opening Endoscopic (ICD-10-PCS; 2018-11-09)
PROC: 0BCB8ZZ Extirpation of Matter from Left Lower Lobe Bronchus, Via Natural or Artificial Opening Endoscopic (ICD-10-PCS; 2018-11-09)
PROC: 0BC18ZZ Extirpation of Matter from Trachea, Via Natural or Artificial Opening Endoscopic (ICD-10-PCS; 2018-11-09)
PROC: 0BC98ZZ Extirpation of Matter from Lingula Bronchus, Via Natural or Artificial Opening Endoscopic (ICD-10-PCS; 2018-11-09)
DX: N17.0 Acute kidney failure with tubular necrosis (principal); J18.9 Pneumonia, unspecified organism; I42.9 Cardiomyopathy, unspecified; I13.0 Hypertensive heart and chronic kidney disease with heart failure and stage 1 through stage 4 chronic kidney disease, or unspecified chronic kidney disease; I50.22 Chronic systolic (congestive) heart failure; T17.590A Other foreign object in bronchus causing asphyxiation, initial encounter; K44.9 Diaphragmatic hernia without obstruction or gangrene; N18.3 Chronic kidney disease, stage 3 (moderate); K64.9 Unspecified hemorrhoids; K29.70 Gastritis, unspecified, without bleeding; D64.9 Anemia, unspecified; R31.9 Hematuria, unspecified; R04.0 Epistaxis; D72.810 Lymphocytopenia; E11.22 Type 2 diabetes mellitus with diabetic chronic kidney disease; E11.65 Type 2 diabetes mellitus with hyperglycemia; R19.5 Other fecal abnormalities; Z96.653 Presence of artificial knee joint, bilateral; E66.9 Obesity, unspecified; J41.0 Simple chronic bronchitis; F41.9 Anxiety disorder, unspecified; F32.9 Major depressive disorder, single episode, unspecified; J43.9 Emphysema, unspecified; I25.10 Atherosclerotic heart disease of native coronary artery without angina pectoris; K21.9 Gastro-esophageal reflux disease without esophagitis; X58.XXXA Exposure to other specified factors, initial encounter; Y93.89 Activity, other specified; Y92.89 Other specified places as the place of occurrence of the external cause; Y99.8 Other external cause status; Z95.810 Presence of automatic (implantable) cardiac defibrillator; Z95.5 Presence of coronary angioplasty implant and graft; I25.2 Old myocardial infarction; Z86.73 Personal history of transient ischemic attack (TIA), and cerebral infarction without residual deficits; Z95.1 Presence of aortocoronary bypass graft; Z90.49 Acquired absence of other specified parts of digestive tract; Z87.891 Personal history of nicotine dependence; Z80.42 Family history of malignant neoplasm of prostate; Z88.1 Allergy status to other antibiotic agents; Z82.49 Family history of ischemic heart disease and other diseases of the circulatory system; Z79.82 Long term (current) use of aspirin; Z79.899 Other long term (current) drug therapy; Z79.02 Long term (current) use of antithrombotics/antiplatelets; Z87.01 Personal history of pneumonia (recurrent); Z68.26 Body mass index [BMI] 26.0-26.9, adult; J40 Bronchitis, not specified as acute or chronic

== ENCOUNTER → 2018-12-30 | Outpatient (CLI) | payer MEDICARE ==
[~2018-12-30] MED LIST changes: +FUROSEMIDE40 MG PO; +PANTOPRAZOLE SO40 MG PO
== END | disposition home or self-care (01) ==
LOC: RAD 15:39
DX: A31.0 Pulmonary mycobacterial infection (principal)

== ENCOUNTER 2019-02-16 04:24 | Inpatient (IN) | payer MEDICARE ==
[2019-02-16] VITALS (10 sets, daily range): BP systolic 100–137; BP diastolic 49–81
[~2019-02-16] VITALS: Wt 100.0 kg
--- NOTE | ~2019-02-16 | EKG ---
[place], [place] ELECTROCARDIOGRAM REPORT NAME: MERNA ABARCA UNIT #: [id number] ROOM: 518 DOCTOR: JOHNNY DRAFT REPORT BIRTHDATE: [birth year] [facility] Test Date: 2019-02-16 Test Time: 04:28:40 Pat Name: MERNA ABARCA Department: Room: 518 Gender: M Transmission Assembler: ANICETO : 1945 Requested By: CAIO GONZALEZ Order Number: [id number] Reading MD: Kirt Walsh MD Measurements Intervals [place] Rate: 100 P: -21 [place]: 162 QRS: 236 QRSD: 132 T: 60 QT: 399 QTc: 515 Interpretive Statements A-V dual-paced complexes w/ some inhibition No further analysis attempted due to paced rhythm Compared to ECG 11/07/2018 11:26:35 Atrial-sensed ventricular-paced complex(es) or rhythm no longer present Electronically Signed On 02-18-2019 12:46:19 PDT by Kirt Walsh MD CM:EKGRPT:ELECTROCARDIOGRAM REPORT [id number] 1246 CAIO GONZALEZ EPIPHANY DRAFT REPORT CAIO GONZALEZ
--- NOTE | ~2019-02-16 | EKG ---
[place], [place] ELECTROCARDIOGRAM REPORT NAME: MERNA ABARCA UNIT #: [id number] ROOM: 518 DOCTOR: JOHNNY DRAFT REPORT BIRTHDATE: [birth year] [facility] Test Date: 2019-02-16 Test Time: 07:32:21 Pat Name: MERNA ABARCA Department: Room: 518 Gender: M Manager Bilingual: : 1945 Requested By: VANESSA BLACK Order Number: [id number] Reading MD: Kirt Walsh MD Measurements Intervals [place] Rate: 73 P: [place]: QRS: 242 QRSD: 133 T: 60 QT: 428 QTc: 472 Interpretive Statements Atrial-sensed ventricular-paced complexes No further analysis attempted due to paced rhythm Compared to ECG 11/07/2018 11:26:35 No significant changes Electronically Signed On 02-18-2019 12:46:25 PDT by Kirt Walsh MD CM:EKGRPT:ELECTROCARDIOGRAM REPORT [id number] 1246 VANESSA SUAZO DRAFT REPORT VANESSA BLACK DO
--- NOTE | ~2019-02-16 | EKG ---
[place], [place] ELECTROCARDIOGRAM REPORT NAME: MERNA ABARCA UNIT #: [id number] ROOM: 518 DOCTOR: JOHNNY DRAFT REPORT BIRTHDATE: [birth year] [facility] Test Date: 2019-02-16 Test Time: 10:20:46 Pat Name: MERNA ABARCA Department: Room: 518 Gender: M Gasoline Finisher: : 1945 Requested By: VANESSA BLACK Order Number: [id number] Reading MD: Kirt Walsh MD Measurements Intervals [place] Rate: 75 P: -8 [place]: 210 QRS: 239 QRSD: 131 T: 56 QT: 438 QTc: 490 Interpretive Statements Atrial-sensed ventricular-paced complexes No further analysis attempted due to paced rhythm Compared to ECG 11/07/2018 11:26:35 No significant changes Electronically Signed On 02-18-2019 12:46:29 PDT by Kirt Walsh MD CM:EKGRPT:ELECTROCARDIOGRAM REPORT [id number] 1246 VANESSA SUAZO DRAFT REPORT VANESSA BLACK DO
--- NOTE | ~2019-02-16 | CON ---
[place], [place] REPORT OF CONSULTATION NAME: MERNA ABARCA UNIT #: [id number] ROOM: 518 DOCTOR: SERINA BAIG MD BIRTHDATE: [birth year] DOS: 02/18/2019 I am seeing this patient on behalf of Dr. Walsh. HISTORY OF PRESENT ILLNESS: This is a 73-year-old -Macedonian man with a history of coronary artery disease with remote 3-vessel coronary artery bypass graft surgery. He has had severe ischemic cardiomyopathy for a very long time and LV ejection fraction has been about 15-20%. He has had an intraventricular conduction defect and it was recommended an AICD over the years, which he had declined, but finally had a biventricular AICD implanted earlier this year. He has significant COPD from heavy smoking in the remote past, hyperlipidemia, GERD, anxiety disorder, diabetes mellitus. He has colon resection and also appendectomy. He does not use alcoholic beverages. No longer smokes. He lives at home and is fairly independent. For the last couple of weeks, he has noticed that he was becoming more and more short of breath and could not lie flat in bed. He had no cough, fever or chills and I could not hear any wheezing. He had no swelling in the lower extremities and AICD has not discharged. HOME MEDICATIONS: Include bronchodilator therapies, on azithromycin p.o., aspirin 81, atorvastatin 40, clopidogrel 75 mg daily, ethambutol 100 mg 3 times a week, ferrous sulfate 325 mg daily, Lasix 40 mg daily, losartan 25 mg daily, metformin 1 g b.i.d., Protonix 40 mg daily, ranitidine 150 at bedtime, rifampin 300 mg 3 times a week, spironolactone 25 mg daily, nitroglycerin sublingual p.r.n. and insulin. PHYSICAL EXAMINATION: GENERAL: The patient is very tall, alert, oriented. He is fairly comfortable. There is no thyromegaly or finger clubbing. VITAL SIGNS: Pulse is 80, regular, blood pressure 109/69. Normal JVP. EXTREMITIES: There is no edema in lower extremities. Pedal pulses are easily appreciated. RESPIRATORY: Breath sounds are mildly diminished. He has few crackles in the lower zones. No wheezing is present. DIAGNOSTIC STUDIES: Chest x-ray was reviewed by me and I did not see any pulmonary edema or congestion. LABORATORY DATA: Hemoglobin 12.2 g/dL, potassium 3.8, sodium 140, creatinine 1.21, BUN 27. IMPRESSION: 1. This patient probably had a mild left-sided cardiac decompensation that caused his symptoms. However, pulmonary edema is not evident on the chest x-ray. I would recommend increasing his dose of diuretic. 2. Coronary artery disease. This is asymptomatic. He had a Lexiscan Cardiolite study done yesterday and Dr. Walsh I am sure will review the images and created a formal report. [place], [place] REPORT OF CONSULTATION NAME: MERNA ABARCA UNIT #: [id number] ROOM: 518 DOCTOR: SERINA BAIG MD BIRTHDATE: [birth year] AICD seems to be working now and now he is in normal sinus rhythm with biventricular pacing with some extrasystoles. I thank you on behalf of Dr. Walsh for this consult. SERINA BAIG MD CM:CONSTR:REPORT OF CONSULTATION [id number] 03/01/19 1052 interface
[2019-02-16 05:08] LABS: BASO % 0.3 % (0.0-1.0); EOS # 0.2 10*3/uL (0.0-0.4); EOS % 3.7 % (1.0-4.0); HEMATOCRIT 37.6 % (42.0-52.0); HEMOGLOBIN 12.3 g/dl (14.0-18.0); LYMPH # 0.9 10*3/uL (1.3-4.4); LYMPH % 14.8 % (27.0-41.0); MEAN CELL VOLUME 94.5 fl (80.0-94.0); MEAN CORPUSCULAR HGB 30.9 pg (27.0-31.0); MEAN CORPUSCULAR HGB CONC 32.7 g/dl (33.0-37.0); MEAN PLATELET VOLUME 9.8 fl (9.6-12.3); MONO # 0.6 10*3/uL (0.1-1.0); MONO % 10.6 % (3.0-9.0); NEUT # 4.2 10*3/uL (2.3-7.9); NEUT % 70.1 % (47.0-73.0); PLATELET COUNT AUTOMATED 159 10*3/uL (130-400); RED BLOOD COUNT 3.98 10*6/uL (4.50-5.90); RED CELL DISTRI WIDTH 13.8 % (0-14.5)
[2019-02-16 05:25] LABS: ACT PARTIAL THROMBO TIME 27.4 SECONDS (20.0-32.1)
[2019-02-16 05:30] LABS: ALBUMIN 3.7 gm/dl (3.1-4.5); ALKALINE PHOSPHATASE 47 U/L (45-117); BUN 16 mg/dl (7-24); CHLORIDE 109 mmol/L (98-107); CREATININE 1.03 mg/dL (0.70-1.30); POTASSIUM 3.6 mmol/L (3.5-5.1); SGOT/AST 16 IU/L (3-35); SGPT/ALT 19 U/L (12-78); SODIUM 139 mmol/L (136-145); TOTAL PROTEIN 7.1 gm/dL (6.4-8.2)
[2019-02-16 05:32] LABS: TROPONIN I 0.038 ng/ml (<0.045)
[2019-02-16] MEDS ORDERED: ETHAMBUTOL HCL100 MG PO (11:50)
[2019-02-16] MEDS ORDERED: AZITHROMYCIN500 M1 IV (11:50)
[2019-02-16] MEDS ORDERED: RIFADIN300 MG PO (11:55)
[2019-02-16] MEDS ORDERED: COL-RITE100 M1 PO (11:56)
[2019-02-16] MEDS ORDERED: GOOD NEIGHBOR150 M1 PO (12:00)
[2019-02-16] MEDS ORDERED: INFLUENZA VACCINE IM (12:02)
[2019-02-17] VITALS: BP 113/72
[2019-02-17 06:38] LABS: BASO % 0.6 % (0.0-1.0); EOS # 0.3 10*3/uL (0.0-0.4); EOS % 5.3 % (1.0-4.0); HEMATOCRIT 38.8 % (42.0-52.0); HEMOGLOBIN 12.5 g/dl (14.0-18.0); LYMPH % 19.8 % (27.0-41.0); MEAN CELL VOLUME 93.9 fl (80.0-94.0); MEAN CORPUSCULAR HGB 30.3 pg (27.0-31.0); MEAN CORPUSCULAR HGB CONC 32.2 g/dl (33.0-37.0); MEAN PLATELET VOLUME 10.1 fl (9.6-12.3); MONO # 0.6 10*3/uL (0.1-1.0); NEUT # 3.3 10*3/uL (2.3-7.9); NEUT % 61.9 % (47.0-73.0); PLATELET COUNT AUTOMATED 164 10*3/uL (130-400); RED BLOOD COUNT 4.13 10*6/uL (4.50-5.90); RED CELL DISTRI WIDTH 13.7 % (0-14.5); WHITE BLOOD COUNT 5.3 10*3/uL (4.8-10.8)
[2019-02-17 06:56] LABS: BUN 17 mg/dl (7-24); CHLORIDE 110 mmol/L (98-107); PHOSPHOROUS 3.6 mg/dL (2.5-4.9); SODIUM 139 mmol/L (136-145)
[2019-02-17 08:00] VITALS: BP 120/60
[2019-02-17 12:00] VITALS: BP 131/69
[2019-02-17 16:00] VITALS: BP 100/60
[2019-02-17 20:00] VITALS: BP 112/56
[2019-02-18] VITALS: BP 109/69
[2019-02-18 07:10] LABS: BASO % 0.8 % (0.0-1.0); EOS # 0.3 10*3/uL (0.0-0.4); EOS % 5.7 % (1.0-4.0); HEMATOCRIT 38.1 % (42.0-52.0); HEMOGLOBIN 12.2 g/dl (14.0-18.0); LYMPH # 1.1 10*3/uL (1.3-4.4); LYMPH % 22.2 % (27.0-41.0); MEAN CELL VOLUME 94.8 fl (80.0-94.0); MEAN CORPUSCULAR HGB 30.3 pg (27.0-31.0); MEAN PLATELET VOLUME 10.3 fl (9.6-12.3); MONO # 0.6 10*3/uL (0.1-1.0); MONO % 11.7 % (3.0-9.0); PLATELET COUNT AUTOMATED 167 10*3/uL (130-400); RED BLOOD COUNT 4.02 10*6/uL (4.50-5.90); RED CELL DISTRI WIDTH 13.9 % (0-14.5); WHITE BLOOD COUNT 5.1 10*3/uL (4.8-10.8)
[2019-02-18 07:24] LABS: CHLORIDE 108 mmol/L (98-107); CREATININE 1.21 mg/dL (0.70-1.30); POTASSIUM 3.8 mmol/L (3.5-5.1); SODIUM 140 mmol/L (136-145)
[2019-02-18 07:30] LABS: BUN 27 mg/dl (7-24)
[2019-02-18 08:00] VITALS: BP 100/58
[2019-02-18 12:00] VITALS: BP 111/84
[2019-02-18 16:00] VITALS: BP 143/90
[2019-02-18] MEDS ORDERED: AZITHROMYCIN500 M2 PO (18:50)
== END 2019-02-18 19:27 | disposition home or self-care (01) | DRG 205 ==
LOC: ED 04:24 → 5E 06:27 → EDHOLD 06:27 → 5E 06:47
PROVIDERS: Emergency Medicine; Internal Medicine; Student in an Organized Health Care Education/Training Program; ADMIT Internal Medicine
PROC: 3E073KZ Introduction of Other Diagnostic Substance into Coronary Artery, Percutaneous Approach (ICD-10-PCS; principal; 2019-02-17)
PROC: 4A02XM4 Measurement of Cardiac Total Activity, External Approach (ICD-10-PCS; principal; 2019-02-17)
DX: M94.0 Chondrocostal junction syndrome [Tietze] (principal); I50.23 Acute on chronic systolic (congestive) heart failure; I42.9 Cardiomyopathy, unspecified; I13.0 Hypertensive heart and chronic kidney disease with heart failure and stage 1 through stage 4 chronic kidney disease, or unspecified chronic kidney disease; J98.11 Atelectasis; I24.9 Acute ischemic heart disease, unspecified; S29.011A Strain of muscle and tendon of front wall of thorax, initial encounter; X58.XXXA Exposure to other specified factors, initial encounter; D53.9 Nutritional anemia, unspecified; F41.9 Anxiety disorder, unspecified; J44.9 Chronic obstructive pulmonary disease, unspecified; Z96.653 Presence of artificial knee joint, bilateral; F32.9 Major depressive disorder, single episode, unspecified; K21.9 Gastro-esophageal reflux disease without esophagitis; E11.65 Type 2 diabetes mellitus with hyperglycemia; R79.89 Other specified abnormal findings of blood chemistry; E87.8 Other disorders of electrolyte and fluid balance, not elsewhere classified; I25.708 Atherosclerosis of coronary artery bypass graft(s), unspecified, with other forms of angina pectoris; E11.22 Type 2 diabetes mellitus with diabetic chronic kidney disease; N18.3 Chronic kidney disease, stage 3 (moderate); Z88.1 Allergy status to other antibiotic agents; Z79.84 Long term (current) use of oral hypoglycemic drugs; Z95.810 Presence of automatic (implantable) cardiac defibrillator; Z86.73 Personal history of transient ischemic attack (TIA), and cerebral infarction without residual deficits; I25.2 Old myocardial infarction; Z95.1 Presence of aortocoronary bypass graft; Z90.49 Acquired absence of other specified parts of digestive tract; Z95.5 Presence of coronary angioplasty implant and graft; Z87.891 Personal history of nicotine dependence; Z82.49 Family history of ischemic heart disease and other diseases of the circulatory system; Z80.42 Family history of malignant neoplasm of prostate; Y93.89 Activity, other specified; Y92.89 Other specified places as the place of occurrence of the external cause; Y99.8 Other external cause status

== ENCOUNTER → 2019-02-26 | Outpatient (CLI) | payer MEDICARE ==
[~2019-02-26] MED LIST changes: +AZITHROMYCIN500 M1 IV; +AZITHROMYCIN500 M2 PO; +COL-RITE100 M1 PO; +ETHAMBUTOL HCL100 MG PO; +GOOD NEIGHBOR150 M1 PO; +INFLUENZA VACCINE IM; +RIFADIN300 MG PO
[2019-02-26 13:38] LABS: BASO # 0.1 10*3/uL (0.0-0.1); BASO % 0.8 % (0.0-1.0); EOS # 0.1 10*3/uL (0.0-0.4); EOS % 1.2 % (1.0-4.0); HEMATOCRIT 40.5 % (42.0-52.0); LYMPH # 1.1 10*3/uL (1.3-4.4); LYMPH % 12.7 % (27.0-41.0); MEAN CELL VOLUME 95.5 fl (80.0-94.0); MEAN CORPUSCULAR HGB 30.7 pg (27.0-31.0); MEAN CORPUSCULAR HGB CONC 32.1 g/dl (33.0-37.0); MEAN PLATELET VOLUME 10.6 fl (9.6-12.3); MONO # 0.7 10*3/uL (0.1-1.0); MONO % 8.4 % (3.0-9.0); NEUT # 6.4 10*3/uL (2.3-7.9); NEUT % 76.3 % (47.0-73.0); PLATELET COUNT AUTOMATED 173 10*3/uL (130-400); RED BLOOD COUNT 4.24 10*6/uL (4.50-5.90); RED CELL DISTRI WIDTH 13.8 % (0-14.5); WHITE BLOOD COUNT 8.3 10*3/uL (4.8-10.8)
[2019-02-26 13:56] LABS: ALKALINE PHOSPHATASE 51 U/L (45-117); BUN 28 mg/dl (7-24); CHLORIDE 106 mmol/L (98-107); CREATININE 1.39 mg/dL (0.70-1.30); POTASSIUM 3.9 mmol/L (3.5-5.1); SGOT/AST 12 IU/L (3-35); SGPT/ALT 24 U/L (12-78); SODIUM 138 mmol/L (136-145); TOTAL PROTEIN 7.3 gm/dL (6.4-8.2)
== END | disposition home or self-care (01) ==
LOC: LAB 13:06
PROVIDERS: Internal Medicine
DX: I11.0 Hypertensive heart disease with heart failure (principal); I50.20 Unspecified systolic (congestive) heart failure; J43.9 Emphysema, unspecified; E11.9 Type 2 diabetes mellitus without complications; F17.200 Nicotine dependence, unspecified, uncomplicated

== ENCOUNTER 2019-04-23 06:38 | Inpatient (IN) | payer MEDICARE ==
[~2019-04-23] VITALS: Ht 195.6 cm; Wt 98.1 kg
[2019-04-23] VITALS (10 sets, daily range): BP systolic 97–146; BP diastolic 52–80
--- NOTE | 2019-04-23 07:03 | NUR ---
REPORT RECIEVED FROM [facility] NICO MELENDREZ.
[2019-04-23 07:08] LABS: BASO % 0.6 % (0.0-1.0); EOS # 0.2 10*3/uL (0.0-0.4); EOS % 3.9 % (1.0-4.0); HEMATOCRIT 34.9 % (42.0-52.0); HEMOGLOBIN 11.4 g/dl (14.0-18.0); LYMPH # 0.9 10*3/uL (1.3-4.4); MEAN CELL VOLUME 94.3 fl (80.0-94.0); MEAN CORPUSCULAR HGB 30.8 pg (27.0-31.0); MEAN CORPUSCULAR HGB CONC 32.7 g/dl (33.0-37.0); MEAN PLATELET VOLUME 9.5 fl (9.6-12.3); MONO # 0.5 10*3/uL (0.1-1.0); MONO % 9.1 % (3.0-9.0); NEUT # 3.7 10*3/uL (2.3-7.9); NEUT % 69.8 % (47.0-73.0); PLATELET COUNT AUTOMATED 189 10*3/uL (130-400); RED CELL DISTRI WIDTH 13.4 % (0-14.5); WHITE BLOOD COUNT 5.4 10*3/uL (4.8-10.8)
[2019-04-23 07:25] LABS: ALBUMIN 3.8 gm/dl (3.1-4.5); ALKALINE PHOSPHATASE 51 U/L (45-117); BUN 29 mg/dl (7-24); CHLORIDE 107 mmol/L (98-107); CREATININE 1.33 mg/dL (0.70-1.30); POTASSIUM 3.9 mmol/L (3.5-5.1); SGOT/AST 12 IU/L (3-35); SGPT/ALT 18 U/L (12-78); SODIUM 139 mmol/L (136-145); TOTAL PROTEIN 6.9 gm/dL (6.4-8.2)
[2019-04-23 07:26] LABS: ACT PARTIAL THROMBO TIME 25.8 SECONDS (20.0-32.1); TROPONIN I 0.037 ng/ml (<0.045)
--- NOTE | 2019-04-23 08:09 | NUR ---
PT RESTING IN BED APPEARS COMFORTABLE. JUST PROVIDED WARM BLANKET. HE DOES NOT APPEAR TO BE IN ANY ACUTE DISTRESS AT THIS TIME. WILL CONTINUE TO MONITOR.
[2019-04-23 08:58] LABS: BILIRUBIN NEGATIVE (NEGATIVE); BLOOD NEGATIVE (NEGATIVE); CLARITY CLEAR (CLEAR); COLOR YELLOW (YELLOW); GLUCOSE NEGATIVE (NEGATIVE); KETONE NEGATIVE (NEGATIVE); LEUKO ESTERASE NEGATIVE (NEGATIVE); NITRITE NEGATIVE (NEGATIVE); UROBILINOGEN 0.2 E.U./dl (0.2-1.0)
[2019-04-23 09:05] LABS: BACTERIA TRACE; EPITHELIAL CELLS 0-2; RBC 0-2 rbc/hpf (0-2); WBC 0-2 wbc/hpf (0-5)
--- NOTE | 2019-04-23 10:14 | NUR ---
LAB CALLS AND PTS TROP IS 0.062. DOC MADE AWARE.
--- NOTE | 2019-04-23 10:49 | NUR ---
A 73, admitted to 4E, under the services of DALJIT Chu MD with a diagnosis of CHEST PAIN, GI BLEED. Chief complaint is CHEST PAIN, ABDOMINAL BURNING. Patient arrived via stretcher from ER. Monitor applied. Initial assessment completed. Vital signs taken and recorded. DALJIT CHU MD notified of admission to the unit. Orders received. See assessment for past medical history, medications and allergies. Patient and/or family oriented to unit. [address] [employer]. visitation policy reviewed. Clothing/patient valuable form completed. YOON CARD
[2019-04-23] MEDS ORDERED: FUROSEMIDE20 M1 PO (11:02)
[2019-04-23] MEDS ORDERED: HYDROCODONE-AC1 EAC1 PO (11:09)
[2019-04-23] MEDS ORDERED: AVPAK AZITHROM250 M1 PO (11:51)
--- NOTE | 2019-04-23 12:38 | NUR ---
CALL PLACED TO DR. MAGDALENO, SPOKE WITH YOON AT ANSWERING SERVICE, DR. ASHLEY CALLED BACK WHILE I WAS DOCUMENTING CALL HE ADVISED ME TO CALL JOVANNI HE IS CLIENT RELATIONSHIP EXECUTIVE THIS WEEKEND, ALSO REQUESTED SIMEON BE CALLED TO GET JOSE ANTONIO REPORT. ADVISED [employer] NETWORK ARCHITECT.
--- NOTE | 2019-04-23 12:44 | NUR ---
CALL PLACED TO DR. BAIG PER DR. MAGDALENO, SPOKE WITH DR. BAIG HE ADVISED HE BWILL SEE PATIENT.
--- NOTE | 2019-04-23 12:51 | NUR ---
CALL PLACED TO DR. JAIME, ADVISED OF CONSULT OR GI BLEED ORDERE RECEIVED FOR NPO. MAY DO EGD TODAY.
--- NOTE | 2019-04-23 13:30 | NUR ---
CALL PLACED TO DR. BAIG'S OFFICE TO REPORT >TROPONIN OF 0.089 LEFT VOICEMAIL FOR CALL BACK
--- NOTE | 2019-04-23 14:30 | NUR ---
NO CALL BACK FROM DR. BAIG, CALLED AGAIN, SPOKE TO DR. BAIG, ADVISED IT IS OKAY FOR EGD, AND HE WILL SEE PATIENT TODAY.
[2019-04-24] VITALS: BP 94/53
[2019-04-24 07:17] LABS: BASO % 0.7 % (0.0-1.0); EOS # 0.2 10*3/uL (0.0-0.4); EOS % 3.8 % (1.0-4.0); HEMATOCRIT 33.2 % (42.0-52.0); HEMOGLOBIN 10.9 g/dl (14.0-18.0); LYMPH # 1.1 10*3/uL (1.3-4.4); LYMPH % 19.5 % (27.0-41.0); MEAN CELL VOLUME 93.5 fl (80.0-94.0); MEAN CORPUSCULAR HGB 30.7 pg (27.0-31.0); MEAN CORPUSCULAR HGB CONC 32.8 g/dl (33.0-37.0); MEAN PLATELET VOLUME 10.1 fl (9.6-12.3); MONO # 0.5 10*3/uL (0.1-1.0); MONO % 9.7 % (3.0-9.0); NEUT # 3.7 10*3/uL (2.3-7.9); NEUT % 65.9 % (47.0-73.0); PLATELET COUNT AUTOMATED 182 10*3/uL (130-400); RED BLOOD COUNT 3.55 10*6/uL (4.50-5.90); RED CELL DISTRI WIDTH 13.2 % (0-14.5); WHITE BLOOD COUNT 5.6 10*3/uL (4.8-10.8)
--- NOTE | 2019-04-24 08:00 | NUR ---
TOOK OVER CARE OF PT AT THIS TIME. ASSESSMENT COMPLETE. PT DENIES NEEDING ANYTHING AT THIS TIME. ALL NEEDS ARE MET. SAFETY MEASURES IN PLACE. CALL LIGHT IN REACH.
[2019-04-24 10:05] VITALS: BP 112/62
[2019-04-24 12:00] VITALS: BP 111/62
--- NOTE | 2019-04-24 14:55 | NUR ---
PT UP WALKING THROUGHOUT HALLS PUSHING IV POLE. NO S/S OF DISTRESS ARE NOTED. PT DENIES PAIN OR DISTRESS. WILL CONTINUE TO MONITOR.
[2019-04-24 16:00] VITALS: BP 112/69
--- NOTE | 2019-04-24 18:00 | NUR ---
Hep Lock discontinued to left antecubital. Site asymptomatic. Pressure applied. Sterile dressing applied. PARVIN ARAYA
--- NOTE | 2019-04-24 18:37 | NUR ---
IV started right antecubital with # protective cath after 2 attempts. Site prepped with Chloroprep. Sterile dressing applied. Patient tolerated procedure well. IV infusing at 30 cc/hr. PARVIN ARAYA
[2019-04-24 20:00] VITALS: BP 102/67
--- NOTE | 2019-04-24 20:07 | NUR ---
PATIENT RESTING IN BED WITH NO NEEDS MADE. DENIES PAIN OR SHORTNESS OF BREATH. BED IN LOWEST POSITION, CALL LIGHT IN REACH
[2019-04-25] VITALS: BP 105/69; BP 119/72
--- NOTE | 2019-04-25 04:50 | NUR ---
24 HR chart check completed.
[2019-04-25 06:49] LABS: BASO % 0.7 % (0.0-1.0); EOS # 0.2 10*3/uL (0.0-0.4); HEMATOCRIT 32.8 % (42.0-52.0); HEMOGLOBIN 10.6 g/dl (14.0-18.0); LYMPH # 1.1 10*3/uL (1.3-4.4); LYMPH % 18.5 % (27.0-41.0); MEAN CELL VOLUME 94.5 fl (80.0-94.0); MEAN CORPUSCULAR HGB 30.5 pg (27.0-31.0); MEAN CORPUSCULAR HGB CONC 32.3 g/dl (33.0-37.0); MEAN PLATELET VOLUME 9.8 fl (9.6-12.3); MONO # 0.6 10*3/uL (0.1-1.0); MONO % 10.8 % (3.0-9.0); NEUT # 3.7 10*3/uL (2.3-7.9); NEUT % 65.5 % (47.0-73.0); PLATELET COUNT AUTOMATED 178 10*3/uL (130-400); RED BLOOD COUNT 3.47 10*6/uL (4.50-5.90); RED CELL DISTRI WIDTH 13.3 % (0-14.5); WHITE BLOOD COUNT 5.7 10*3/uL (4.8-10.8)
[2019-04-25 07:12] LABS: ALBUMIN 3.5 gm/dl (3.1-4.5); ALKALINE PHOSPHATASE 40 U/L (45-117); CHLORIDE 109 mmol/L (98-107); CREATININE 1.27 mg/dL (0.70-1.30); POTASSIUM 3.8 mmol/L (3.5-5.1); SGOT/AST 16 IU/L (3-35); SGPT/ALT 20 U/L (12-78); SODIUM 142 mmol/L (136-145); TOTAL PROTEIN 6.3 gm/dL (6.4-8.2)
[2019-04-25 07:21] LABS: BUN 19 mg/dl (7-24)
--- NOTE | 2019-04-25 07:55 | NUR ---
24 HR chart check completed.
[2019-04-25 08:00] VITALS: BP 118/58
--- NOTE | 2019-04-25 09:00 | NUR ---
SLEEPING, AWAKENS EASILY. RESPIRATIONS EASY. LUNGS DIMINISHED, CLEAR. PULSE OX 94% RA. DENIES ACTIVE BLEED. CALL LIGHT WITHIN REACH. NO VOICED COMPLAINTS
[2019-04-25 12:00] VITALS: BP 105/57
--- NOTE | 2019-04-25 13:00 | NUR ---
AMBULATING HALLWAY. NO DISTRESS NOTED. NO VOICED COMPLAINTS
[2019-04-25 16:00] VITALS: BP 115/64
--- NOTE | 2019-04-25 16:00 | NUR ---
RESTING IN BED WITH NO DISTRESS NOTED. RESPIRATIONS EASY. CALL LIGHT WITHIN REACH. NO VOICED COMPLAINTS.
[2019-04-25 20:00] VITALS: BP 126/64
--- NOTE | 2019-04-25 20:05 | NUR ---
PATIENT ASSESSMENT COMPLETED AT THIS TIME WITHOUT INCIDENT. PATIENT DENIES ANY CHEST PAIN OR PRESSURE AT THIS TIME. PATIENT AMBULATORY IN ROOM AND HALLWAY WITHOUT THE AID OF ANY DEVICE. IV SITE CHANGED TO LEFT ARM AT PATIENT REQUEST AND COMPLAINT OF PAIN AT IV SITE IN RIGHT ANTECUBITAL. CALL LIGHT WITHIN REACH, WILL CONTINUE TO MONITOR.
--- NOTE | 2019-04-25 22:36 | NUR ---
24 HOUR CHART CHECK COMPLETED
--- NOTE | 2019-04-26 04:20 | NUR ---
PATIENT MEDICATED AT HIS REQUEST FOR PAIN IN HIS STOMACH FROM ULCERS AT THIS TIME, PAIN RATED AT A 10/10. PATIENT ALSO MEDICATED WITH PROTONIX AND GAVASCON AT THIS TIME AT HIS INSISTANT REQUEST.
--- NOTE | 2019-04-26 05:20 | NUR ---
PATIENT RESTING IN BED IN A POSITION OF COMFORT, WITH EYES CLOSED, NO SIGNS OR SYMPTOMS OF PAIN NOTED AT THIS TIME.
--- NOTE | 2019-04-26 06:50 | NUR ---
CALL PLACED TO DR. JAIME AT THIS TIME AND MESSAGE LEFT TO RETURN CALL.
[2019-04-26 08:00] VITALS: BP 122/64
--- NOTE | 2019-04-26 08:25 | NUR ---
MEDICATED WITH PRN PO NORCO FOR ABDOMINAL PAIN.
--- NOTE | 2019-04-26 09:00 | NUR ---
Analytical Lab Analyst in to talk to patient. Patient states lives at home with alone. There are few steps in the home. Physician: keenan [facility] Home health services: none Patient's level of ADLs: INDEPENDENT Patient has working utilities: all working DME: none Follow-up physician's appointment after d/c: ptient prefers to make his own follow up doctors appointment Does patient want to access PORTAL?: no Discharge plan discussed with patient, he lives at home alone, he is independent in adls and ambulation, he will return home when medically stable and denies any home needs. SABAS PATTON
--- NOTE | 2019-04-26 10:03 | NUR ---
PRN PO NORCO EFFECTIVE FOR ABDOMINAL PAIN; PATIENT RESTING QUIETLY.
[2019-04-26 12:00] VITALS: BP 124/71
--- NOTE | 2019-04-26 15:10 | NUR ---
MEDICATED WITH PRN PO NORCO FOR ABDOMINAL PAIN.
[2019-04-26 16:00] VITALS: BP 125/71
--- NOTE | 2019-04-26 16:00 | NUR ---
PRN PO NORCO EFFECTIVE FOR PAIN, PER PATIENT.
[2019-04-26 20:00] VITALS: BP 103/55
--- NOTE | 2019-04-26 20:00 | NUR ---
24 HOUR CHART CHECK COMPLETE
--- NOTE | 2019-04-26 20:10 | NUR ---
PATIENT ASSESSMENT COMPLETE WITHOUT INCIDENT. DENIES CHEST PAIN\PRESSURE, OR SHORTNESS OF BREATH AT THIS TIME. ABDOMEN SOFT AND NON-TENDER ON PALPATION EXCEPT FOR UL AND MEDIAL QUADRANT. PATIENT REQUESTING SOMETHING FOR SLEEP TONIGHT, WILL CONTACT RESIDENT FOR ORDERS, SEE EMAR. BGL 134. CALL LIGHT WITHIN REACH, WILL CONTINUE TO MONITOR.
--- NOTE | 2019-04-26 20:14 | NUR ---
PRN NORCO GIVEN AT THIS TIME FOR PAIN IN LUQ, A&O X3, PAIN 11/04.
--- NOTE | 2019-04-26 21:15 | NUR ---
PRN PAIN MEDICATION EFFECTIVE PER PATIENT
[2019-04-27] VITALS: BP 110/62
[2019-04-27 00:40] VITALS: BP 110/62
--- NOTE | 2019-04-27 00:43 | NUR ---
PRN PAIN MEDICATION GIVEN AT THIS TIME FOR PAIN LUQ, 10/05, A&OX3
--- NOTE | 2019-04-27 01:40 | NUR ---
PRN PAIN MEDICATION EFFECTIVE PER PATIENT AT THIS TIME, A&O X3
--- NOTE | 2019-04-27 05:13 | NUR ---
PRN NORCO GIVEN AT THIS TIME FOR COMPLAINT OF STOMACH PAIN 11/04
--- NOTE | 2019-04-27 06:15 | NUR ---
PRN PAIN MEDICATION EFFECTIVE AT THIS TIME PER PATIENT, A&OX3
[2019-04-27 07:02] LABS: EOS # 0.2 10*3/uL (0.0-0.4); EOS % 5.4 % (1.0-4.0); HEMATOCRIT 35.3 % (42.0-52.0); HEMOGLOBIN 11.2 g/dl (14.0-18.0); MEAN CELL VOLUME 95.7 fl (80.0-94.0); MEAN CORPUSCULAR HGB 30.4 pg (27.0-31.0); MEAN CORPUSCULAR HGB CONC 31.7 g/dl (33.0-37.0); MEAN PLATELET VOLUME 10.2 fl (9.6-12.3); MONO # 0.4 10*3/uL (0.1-1.0); NEUT # 2.2 10*3/uL (2.3-7.9); NEUT % 57.1 % (47.0-73.0); PLATELET COUNT AUTOMATED 183 10*3/uL (130-400); RED BLOOD COUNT 3.69 10*6/uL (4.50-5.90); RED CELL DISTRI WIDTH 13.2 % (0-14.5); WHITE BLOOD COUNT 3.9 10*3/uL (4.8-10.8)
[2019-04-27 07:10] LABS: BUN 24 mg/dl (7-24); CHLORIDE 108 mmol/L (98-107); CREATININE 1.34 mg/dL (0.70-1.30); POTASSIUM 4.1 mmol/L (3.5-5.1); SODIUM 142 mmol/L (136-145)
[2019-04-27 07:46] VITALS: BP 108/62
--- NOTE | 2019-04-27 07:56 | NUR ---
PATIENT C/O BLURRY VISION, FLOATERS, AND SEEING ONLY HALF OF EVERYTHING, STATES HAPPENS INTERMITTENTLY AND IS ASSOCIATED WITH STOMACH PROBLEMS, SOMETIMES IS ASSOCIATED WITH MIGRAINES. HE IS REQUESTING TYLENOL AND A MASK TO COVER EYES. PHONED DR. ARAUJO FOR TYLENOL ORDER.
--- NOTE | 2019-04-27 08:09 | NUR ---
ADMINISTERED TYLENOL FOR DISCOMFORT, PATIENT STATES BLURRED VISION WENT AWAY AFTER EATING.
--- NOTE | 2019-04-27 08:55 | NUR ---
PRN PO TYLENOL EFFECTIVE, PER PATIENT.
--- NOTE | 2019-04-27 10:08 | NUR ---
MEDICATED WITH PRN PO NORCO FOR ABDOMINAL PAIN.
--- NOTE | 2019-04-27 11:08 | NUR ---
PRN PO NORCO EFFECTIVE, PER PATIENT.
[2019-04-27] MEDS ORDERED: ASPIRIN CHEWABL81 MG PO (12:13)
[2019-04-27] MEDS ORDERED: HYDROCODONE-AC1 EAC1 PO (12:13)
--- NOTE | 2019-04-27 12:53 | NUR ---
Discharge instructions reviewed with patient. Patient receptive and verbalizes understanding. Follow-up care arranged. Written instructions given to patient. PATIENT DISCHARGED TO [facility], AMBULATORY, FOR TRANSPORT HOME BY PRIVATE VEHICLE. MARCIE ENNIS
== END 2019-04-27 12:53 | disposition home or self-care (01) | DRG 682 ==
LOC: ED 06:38 → 4E 10:08 → EDHOLD 10:08 → 4E 10:35
PROVIDERS: Emergency Medicine; Internal Medicine; Internal Medicine Nephrology; ADMIT Internal Medicine
PROC: 0DB38ZX Excision of Lower Esophagus, Via Natural or Artificial Opening Endoscopic, Diagnostic (ICD-10-PCS; principal; 2019-04-23)
DX: N17.9 Acute kidney failure, unspecified (principal); K22.11 Ulcer of esophagus with bleeding; K26.4 Chronic or unspecified duodenal ulcer with hemorrhage; I13.0 Hypertensive heart and chronic kidney disease with heart failure and stage 1 through stage 4 chronic kidney disease, or unspecified chronic kidney disease; K29.70 Gastritis, unspecified, without bleeding; D51.9 Vitamin B12 deficiency anemia, unspecified; N18.3 Chronic kidney disease, stage 3 (moderate); E78.5 Hyperlipidemia, unspecified; I25.10 Atherosclerotic heart disease of native coronary artery without angina pectoris; I50.9 Heart failure, unspecified; J44.9 Chronic obstructive pulmonary disease, unspecified; E11.22 Type 2 diabetes mellitus with diabetic chronic kidney disease; Z96.653 Presence of artificial knee joint, bilateral; F41.9 Anxiety disorder, unspecified; F32.9 Major depressive disorder, single episode, unspecified; K21.9 Gastro-esophageal reflux disease without esophagitis; R79.89 Other specified abnormal findings of blood chemistry; R19.5 Other fecal abnormalities; I48.91 Unspecified atrial fibrillation; I25.5 Ischemic cardiomyopathy; I95.9 Hypotension, unspecified; Z79.82 Long term (current) use of aspirin; Z79.899 Other long term (current) drug therapy; Z79.4 Long term (current) use of insulin; Z79.01 Long term (current) use of anticoagulants; Z95.5 Presence of coronary angioplasty implant and graft; Z95.1 Presence of aortocoronary bypass graft; Z87.891 Personal history of nicotine dependence; I25.2 Old myocardial infarction; Z86.73 Personal history of transient ischemic attack (TIA), and cerebral infarction without residual deficits; Z88.1 Allergy status to other antibiotic agents; Z93.3 Colostomy status; Z80.42 Family history of malignant neoplasm of prostate; Z82.49 Family history of ischemic heart disease and other diseases of the circulatory system; Z95.810 Presence of automatic (implantable) cardiac defibrillator

== ENCOUNTER 2019-08-23 07:46 | Inpatient (IN) | payer MEDICARE ==
[~2019-08-23] VITALS: Ht 172.7 cm; Wt 99.9 kg
[~2019-08-23 07:46] MED LIST changes: +AVPAK AZITHROM250 M1 PO; +HYDROCODONE-AC1 EAC1 PO
[2019-08-23 07:52] VITALS: BP 153/86
[2019-08-23 08:05] VITALS: BP 124/76
[2019-08-23 08:19] LABS: BASO % 0.8 % (0.0-1.0); EOS # 0.1 10*3/uL (0.0-0.4); EOS % 2.9 % (1.0-4.0); HEMATOCRIT 40.3 % (42.0-52.0); LYMPH # 0.9 10*3/uL (1.3-4.4); LYMPH % 18.6 % (27.0-41.0); MEAN CELL VOLUME 95.5 fl (80.0-94.0); MEAN CORPUSCULAR HGB 31.3 pg (27.0-31.0); MEAN CORPUSCULAR HGB CONC 32.8 g/dl (33.0-37.0); MEAN PLATELET VOLUME 9.9 fl (9.6-12.3); MONO # 0.5 10*3/uL (0.1-1.0); MONO % 10.6 % (3.0-9.0); NEUT # 3.2 10*3/uL (2.3-7.9); NEUT % 66.9 % (47.0-73.0); PLATELET COUNT AUTOMATED 186 10*3/uL (130-400); RED BLOOD COUNT 4.22 10*6/uL (4.50-5.90); RED CELL DISTRI WIDTH 13.9 % (0-14.5); WHITE BLOOD COUNT 4.8 10*3/uL (4.8-10.8)
[2019-08-23 08:30] LABS: ACT PARTIAL THROMBO TIME 28.8 SECONDS (20.0-32.1); INTERNATIONAL NORM RATIO 1.1 (2.0-3.5)
[2019-08-23 08:36] LABS: LIPASE 51 U/L (73-393)
[2019-08-23 08:38] LABS: ALBUMIN 4.2 gm/dl (3.1-4.5); ALKALINE PHOSPHATASE 49 U/L (45-117); BUN 20 mg/dl (7-24); CHLORIDE 108 mmol/L (98-107); CREATININE 1.37 mg/dL (0.70-1.30); POTASSIUM 3.8 mmol/L (3.5-5.1); SGOT/AST 22 IU/L (3-35); SGPT/ALT 25 U/L (12-78); SODIUM 139 mmol/L (136-145); TOTAL PROTEIN 7.6 gm/dL (6.4-8.2)
[2019-08-23 09:33] VITALS: BP 109/67
[2019-08-23 20:00] VITALS: BP 113/62
[2019-08-24] VITALS (7 sets, daily range): BP systolic 90–132; BP diastolic 57–70
[2019-08-24 06:08] LABS: BUN 20 mg/dl (7-24); CHLORIDE 108 mmol/L (98-107); POTASSIUM 3.6 mmol/L (3.5-5.1); SODIUM 140 mmol/L (136-145)
[2019-08-24 06:10] LABS: BASO % 0.7 % (0.0-1.0); EOS # 0.1 10*3/uL (0.0-0.4); EOS % 3.2 % (1.0-4.0); HEMATOCRIT 36.1 % (42.0-52.0); LYMPH % 22.3 % (27.0-41.0); MEAN CELL VOLUME 95.5 fl (80.0-94.0); MEAN CORPUSCULAR HGB CONC 32.4 g/dl (33.0-37.0); MEAN PLATELET VOLUME 10.4 fl (9.6-12.3); MONO # 0.4 10*3/uL (0.1-1.0); MONO % 9.9 % (3.0-9.0); NEUT # 2.8 10*3/uL (2.3-7.9); NEUT % 63.7 % (47.0-73.0); PLATELET COUNT AUTOMATED 163 10*3/uL (130-400); RED BLOOD COUNT 3.78 10*6/uL (4.50-5.90); WHITE BLOOD COUNT 4.4 10*3/uL (4.8-10.8)
[2019-08-25] VITALS: BP 114/60
[2019-08-25 05:51] LABS: BASO % 0.6 % (0.0-1.0); EOS # 0.2 10*3/uL (0.0-0.4); EOS % 2.9 % (1.0-4.0); HEMATOCRIT 36.9 % (42.0-52.0); LYMPH # 0.9 10*3/uL (1.3-4.4); LYMPH % 16.3 % (27.0-41.0); MEAN CELL VOLUME 95.6 fl (80.0-94.0); MEAN CORPUSCULAR HGB 30.8 pg (27.0-31.0); MEAN CORPUSCULAR HGB CONC 32.2 g/dl (33.0-37.0); MEAN PLATELET VOLUME 10.2 fl (9.6-12.3); MONO # 0.6 10*3/uL (0.1-1.0); MONO % 10.5 % (3.0-9.0); NEUT # 3.8 10*3/uL (2.3-7.9); NEUT % 69.3 % (47.0-73.0); PLATELET COUNT AUTOMATED 175 10*3/uL (130-400); RED BLOOD COUNT 3.86 10*6/uL (4.50-5.90); WHITE BLOOD COUNT 5.5 10*3/uL (4.8-10.8)
[2019-08-25 06:22] LABS: BUN 23 mg/dl (7-24); CHLORIDE 108 mmol/L (98-107); POTASSIUM 3.9 mmol/L (3.5-5.1); SODIUM 139 mmol/L (136-145)
[2019-08-25 06:23] LABS: CREATININE 1.12 mg/dL (0.70-1.30)
[2019-08-25 08:00] VITALS: BP 108/70
[2019-08-25] MEDS ORDERED: RIFADIN300 MG PO (10:17)
[2019-08-25 12:00] VITALS: BP 126/86
[2019-08-25 16:00] VITALS: BP 111/72
[2019-08-25 20:00] VITALS: BP 100/63
[2019-08-26] VITALS: BP 107/60
[2019-08-26 06:31] LABS: BUN 25 mg/dl (7-24); CHLORIDE 106 mmol/L (98-107); CREATININE 1.11 mg/dL (0.70-1.30); POTASSIUM 3.9 mmol/L (3.5-5.1); SODIUM 138 mmol/L (136-145)
[2019-08-26 06:33] LABS: BASO % 0.7 % (0.0-1.0); EOS # 0.2 10*3/uL (0.0-0.4); EOS % 3.5 % (1.0-4.0); HEMATOCRIT 37.7 % (42.0-52.0); LYMPH # 0.8 10*3/uL (1.3-4.4); LYMPH % 17.1 % (27.0-41.0); MEAN CELL VOLUME 93.8 fl (80.0-94.0); MEAN CORPUSCULAR HGB 30.8 pg (27.0-31.0); MEAN CORPUSCULAR HGB CONC 32.9 g/dl (33.0-37.0); MEAN PLATELET VOLUME 10.2 fl (9.6-12.3); MONO # 0.6 10*3/uL (0.1-1.0); MONO % 11.9 % (3.0-9.0); NEUT # 3.1 10*3/uL (2.3-7.9); NEUT % 66.6 % (47.0-73.0); PLATELET COUNT AUTOMATED 177 10*3/uL (130-400); RED BLOOD COUNT 4.02 10*6/uL (4.50-5.90); RED CELL DISTRI WIDTH 13.8 % (0-14.5); WHITE BLOOD COUNT 4.6 10*3/uL (4.8-10.8)
[2019-08-26] MEDS ORDERED: LASIX40 MG PO (12:18)
[2019-08-26] MEDS ORDERED: POTASSIUM CHLO10 MEQ PO (12:18)
[2019-08-26] MEDS ORDERED: CARVEDILOL3.125 MG PO (12:18)
[2019-08-26] MEDS ORDERED: AZITHROMYCIN500 M2 PO (13:21)
== END 2019-08-26 14:00 | disposition home or self-care (01) | DRG 291 ==
LOC: ED 07:46 → EDHOLD 09:41 → 4E 09:41
PROVIDERS: Emergency Medicine; Hospitalist; ADMIT Internal Medicine
DX: I13.0 Hypertensive heart and chronic kidney disease with heart failure and stage 1 through stage 4 chronic kidney disease, or unspecified chronic kidney disease (principal); I50.21 Acute systolic (congestive) heart failure; N17.9 Acute kidney failure, unspecified; E87.8 Other disorders of electrolyte and fluid balance, not elsewhere classified; E83.41 Hypermagnesemia; I25.10 Atherosclerotic heart disease of native coronary artery without angina pectoris; K21.9 Gastro-esophageal reflux disease without esophagitis; E11.65 Type 2 diabetes mellitus with hyperglycemia; J44.9 Chronic obstructive pulmonary disease, unspecified; E11.22 Type 2 diabetes mellitus with diabetic chronic kidney disease; D53.9 Nutritional anemia, unspecified; N18.3 Chronic kidney disease, stage 3 (moderate); K29.50 Unspecified chronic gastritis without bleeding; N20.0 Calculus of kidney; F41.9 Anxiety disorder, unspecified; F32.9 Major depressive disorder, single episode, unspecified; I25.5 Ischemic cardiomyopathy; R79.89 Other specified abnormal findings of blood chemistry; Z96.653 Presence of artificial knee joint, bilateral; Z95.1 Presence of aortocoronary bypass graft; I25.2 Old myocardial infarction; Z79.4 Long term (current) use of insulin; Z95.5 Presence of coronary angioplasty implant and graft; Z95.810 Presence of automatic (implantable) cardiac defibrillator; Z79.82 Long term (current) use of aspirin; Z79.899 Other long term (current) drug therapy; Z79.84 Long term (current) use of oral hypoglycemic drugs; Z87.891 Personal history of nicotine dependence; Z80.42 Family history of malignant neoplasm of prostate; Z82.49 Family history of ischemic heart disease and other diseases of the circulatory system; Z86.73 Personal history of transient ischemic attack (TIA), and cerebral infarction without residual deficits; Z88.8 Allergy status to other drugs, medicaments and biological substances

== ENCOUNTER → 2019-12-29 | Outpatient (CLI) | payer MEDICARE ==
[~2019-12-29] MED LIST changes: +CARVEDILOL3.125 MG PO; +POTASSIUM CHLO10 MEQ PO
== END | disposition home or self-care (01) ==
LOC: US 13:00
PROVIDERS: ATTEND Internal Medicine
DX: R31.0 Gross hematuria (principal)

== ENCOUNTER 2020-01-09 23:13 | Observation (INO) | payer MEDICARE ==
[~2020-01-09] VITALS: Ht 195.5 cm; Wt 94.1 kg
[2020-01-09 23:20] VITALS: BP 119/80
[2020-01-10 00:05] LABS: BASO % 0.4 % (0.0-1.0); EOS # 0.1 10*3/uL (0.0-0.4); EOS % 0.9 % (1.0-4.0); HEMATOCRIT 41.3 % (42.0-52.0); LYMPH # 0.9 10*3/uL (1.3-4.4); LYMPH % 12.1 % (27.0-41.0); MEAN CORPUSCULAR HGB CONC 32.9 g/dl (33.0-37.0); MEAN PLATELET VOLUME 9.7 fl (9.6-12.3); MONO # 0.6 10*3/uL (0.1-1.0); MONO % 7.8 % (3.0-9.0); NEUT # 5.9 10*3/uL (2.3-7.9); NEUT % 78.1 % (47.0-73.0); PLATELET COUNT AUTOMATED 159 10*3/uL (130-400); RED BLOOD COUNT 4.54 10*6/uL (4.50-5.90); RED CELL DISTRI WIDTH 13.2 % (0-14.5); WHITE BLOOD COUNT 7.5 10*3/uL (4.8-10.8)
[2020-01-10 00:17] LABS: ACT PARTIAL THROMBO TIME 27.9 SECONDS (20.0-32.1); INTERNATIONAL NORM RATIO 1.1 (2.0-3.5)
[2020-01-10 00:18] LABS: BILIRUBIN 1+; BLOOD 2+ (NEGATIVE); CLARITY TURBID (CLEAR); COLOR RED (YELLOW); GLUCOSE NEGATIVE; KETONE NEGATIVE; LEUKO ESTERASE 2+ (NEGATIVE); NITRITE POSITIVE (NEGATIVE); UROBILINOGEN 0.2 E.U./dl (0.0-1.0)
[2020-01-10 00:20] LABS: BACTERIA 3+
[2020-01-10 00:20] LABS: ALBUMIN 4.1 gm/dl (3.1-4.5); ALKALINE PHOSPHATASE 59 U/L (45-117); BUN 32 mg/dl (7-24); CHLORIDE 108 mmol/L (98-107); CREATININE 1.49 mg/dL (0.70-1.30); POTASSIUM 4.1 mmol/L (3.5-5.1); SGOT/AST 17 IU/L (3-35); SGPT/ALT 23 U/L (12-78); SODIUM 138 mmol/L (136-145); TOTAL PROTEIN 7.3 gm/dL (6.4-8.2)
[2020-01-10 00:21] LABS: RBC TNTC rbc/hpf (0-2)
[2020-01-10] MEDS ORDERED: CIPROFLOXACIN500 M4 PO (00:52)
[2020-01-10 03:32] VITALS: BP 105/68
[2020-01-10 04:10] VITALS: BP 123/67
--- NOTE | 2020-01-10 04:10 | NUR ---
A 74, admitted to 5E, under the services of DALJIT Chu MD with a diagnosis of HEMATURIA. Chief complaint is KIDNEY STONES. Patient arrived via bed from ER. Monitor applied. Initial assessment completed. Vital signs taken and recorded. DALJIT CHU MD notified of admission to the unit. Orders received. See assessment for past medical history, medications and allergies. Patient and/or family oriented to unit. [facility] visitation policy reviewed. Clothing/patient valuable form completed. WILLARD KNIGHT
--- NOTE | 2020-01-10 04:30 | NUR ---
UNABLE TO COMPLETE MED REC AT THIS TIME. PT UNSURE OF MEDICATIONS AND DID NOT BRING LIST. WILL HAVE TO CALL PHARMACY IN THE AM
--- NOTE | 2020-01-10 04:45 | NUR ---
DR. ARAUJO NOTIFIED OF ADMISSION, ORDERS RECEIVED. ORDERED TO RESTART HOME MEDICATIONS WHEN VERIFIED WITH PHARMACY IN THE MORNING
--- NOTE | 2020-01-10 05:31 | NUR ---
PT LYING IN BED AT THIS TIME
[2020-01-10] MEDS ORDERED: INSULIN AS100 UNIT/4 SQ (07:38)
[2020-01-10] MEDS ORDERED: ALDACTONE25 MG PO (07:43)
[2020-01-10] MEDS ORDERED: COZAAR25 M1 PO (07:43)
[2020-01-10] MEDS ORDERED: FEROSUL325 MG PO (07:45)
--- NOTE | 2020-01-10 07:45 | NUR ---
MEDICATION RECONCILLIATION COMPLETED ITH RT AID SRINIVASAN PATIENT IS UNSURE OF WHAT MEDICATIONS HE TAKES
[2020-01-10 08:00] VITALS: BP 120/81
--- NOTE | 2020-01-10 09:00 | NUR ---
Cut Roll Machine Offbearer in to talk to patient. Patient states lives at home alone with his family and neighbors checking in on him. He moved into his family home when his 92 yo sister 3-4 months ago. There are 36 steps (3 flights) in the home. Physician: Dr. Gulshan Downing [facility]acy: [facility] Home health services: none Patient's level of ADLs: INDEPENDENT Patient has working utilities: yes DME: none Follow-up physician's appointment after d/c: he prefers to make his own follow up appt after discharge Does patient want to access PORTAL?: no Discharge plan discussed with patient. He lives at home alone with his dog and his sister's cat. His nieces and nephews along with neighbors check in on him. He is independent in his ADLs and ambulation. Discussed home health care services and he declines. CM will continue to follow for any discharge planning needs. When medically stable he will be discharged to home. He drove himself here and plans to drive himself home. He states he was on Cipro for UTI prior to admission and it wasn't helping. NICHOLAS JANG
[2020-01-10 10:52] LABS: BASO % 0.5 % (0.0-1.0); EOS # 0.1 10*3/uL (0.0-0.4); EOS % 1.7 % (1.0-4.0); HEMATOCRIT 42.1 % (42.0-52.0); LYMPH # 1.1 10*3/uL (1.3-4.4); LYMPH % 16.3 % (27.0-41.0); MEAN CELL VOLUME 91.9 fl (80.0-94.0); MEAN CORPUSCULAR HGB 29.9 pg (27.0-31.0); MEAN CORPUSCULAR HGB CONC 32.5 g/dl (33.0-37.0); MEAN PLATELET VOLUME 9.9 fl (9.6-12.3); MONO # 0.5 10*3/uL (0.1-1.0); MONO % 7.9 % (3.0-9.0); NEUT # 4.8 10*3/uL (2.3-7.9); NEUT % 73.1 % (47.0-73.0); PLATELET COUNT AUTOMATED 161 10*3/uL (130-400); RED BLOOD COUNT 4.58 10*6/uL (4.50-5.90); RED CELL DISTRI WIDTH 13.4 % (0-14.5); WHITE BLOOD COUNT 6.6 10*3/uL (4.8-10.8)
[2020-01-10 11:02] LABS: ALBUMIN 3.7 gm/dl (3.1-4.5); ALKALINE PHOSPHATASE 50 U/L (45-117); BUN 28 mg/dl (7-24); CHLORIDE 109 mmol/L (98-107); CREATININE 1.31 mg/dL (0.70-1.30); SGOT/AST 16 IU/L (3-35); SGPT/ALT 23 U/L (12-78); SODIUM 140 mmol/L (136-145); TOTAL PROTEIN 7.2 gm/dL (6.4-8.2)
[2020-01-10 12:00] VITALS: BP 112/70
[2020-01-10 16:00] VITALS: BP 134/83
[2020-01-10] MEDS ORDERED: FLOMAX0.4 MG PO (16:55)
[2020-01-10] MEDS ORDERED: LEVAQUIN750 M1 PO (16:55)
--- NOTE | 2020-01-10 17:36 | NUR ---
PATIENT OFF FLOOR TO HIS CAR AT THIS TIME,DISCHARGE INSTRUCTIONS WERE GIVEN, IV WAS REMOVED. ALL BELONGINGS WERE SENT WITH PATIENT
== END 2020-01-10 17:36 | disposition home or self-care (01) ==
LOC: ED 23:13 → EDHOLD 01-10 03:01 → 5E 01-10 03:01
PROVIDERS: Nurse Practitioner Family; ADMIT Internal Medicine; ATTEND Internal Medicine
DX: N39.0 Urinary tract infection, site not specified (principal); R31.9 Hematuria, unspecified; N20.0 Calculus of kidney; N40.0 Benign prostatic hyperplasia without lower urinary tract symptoms; N32.89 Other specified disorders of bladder; I25.10 Atherosclerotic heart disease of native coronary artery without angina pectoris; I42.9 Cardiomyopathy, unspecified; I12.9 Hypertensive chronic kidney disease with stage 1 through stage 4 chronic kidney disease, or unspecified chronic kidney disease; N18.3 Chronic kidney disease, stage 3 (moderate); I25.2 Old myocardial infarction; J44.9 Chronic obstructive pulmonary disease, unspecified; Z87.891 Personal history of nicotine dependence

== ENCOUNTER 2020-01-15 18:42 | Emergency (ER) | payer MEDICARE ==
[~2020-01-15] VITALS: Ht 195.5 cm; Wt 100.7 kg
[~2020-01-15 18:42] MED LIST changes: +CIPROFLOXACIN500 M4 PO; +COZAAR25 M1 PO; +FEROSUL325 MG PO; +FLOMAX0.4 MG PO; +INSULIN AS100 UNIT/4 SQ; +LEVAQUIN750 M1 PO
[2020-01-15 20:01] LABS: BASO % 0.4 % (0.0-1.0); EOS # 0.1 10*3/uL (0.0-0.4); EOS % 1.8 % (1.0-4.0); HEMATOCRIT 41.7 % (42.0-52.0); LYMPH # 0.9 10*3/uL (1.3-4.4); MEAN CELL VOLUME 91.4 fl (80.0-94.0); MEAN CORPUSCULAR HGB 30.3 pg (27.0-31.0); MEAN CORPUSCULAR HGB CONC 33.1 g/dl (33.0-37.0); MEAN PLATELET VOLUME 9.9 fl (9.6-12.3); MONO # 0.6 10*3/uL (0.1-1.0); MONO % 9.9 % (3.0-9.0); NEUT % 71.4 % (47.0-73.0); PLATELET COUNT AUTOMATED 152 10*3/uL (130-400); RED BLOOD COUNT 4.56 10*6/uL (4.50-5.90); RED CELL DISTRI WIDTH 13.4 % (0-14.5); WHITE BLOOD COUNT 5.6 10*3/uL (4.8-10.8)
[2020-01-15 20:17] LABS: ALBUMIN 3.9 gm/dl (3.1-4.5); ALKALINE PHOSPHATASE 59 U/L (45-117); BUN 27 mg/dl (7-24); CHLORIDE 108 mmol/L (98-107); CREATININE 1.46 mg/dL (0.70-1.30); LIPASE 63 U/L (73-393); POTASSIUM 3.8 mmol/L (3.5-5.1); SGOT/AST 12 IU/L (3-35); SGPT/ALT 22 U/L (12-78); SODIUM 138 mmol/L (136-145); TOTAL PROTEIN 7.4 gm/dL (6.4-8.2); TROPONIN I 0.028 ng/ml (<0.045)
[2020-01-15 20:21] LABS: ACT PARTIAL THROMBO TIME 29.9 SECONDS (20.0-32.1); INTERNATIONAL NORM RATIO 1.1 (2.0-3.5)
[2020-01-15] MEDS ORDERED: MIRALAX119 GM PO (22:13)
[2020-01-15 22:25] LABS: BILIRUBIN NEGATIVE; BLOOD 2+ (NEGATIVE); CLARITY CLEAR (CLEAR); COLOR YELLOW (YELLOW); GLUCOSE NEGATIVE; KETONE NEGATIVE; LEUKO ESTERASE NEGATIVE (NEGATIVE); NITRITE NEGATIVE (NEGATIVE); PH 5.5 (4.5-8.0); SPECIFIC GRAVITY 1.025 (1.001-1.030)
[2020-01-15 22:27] LABS: RBC 21-30 rbc/hpf (0-2)
[2020-01-15 23:23] VITALS: BP 127/64
== END 2020-01-15 23:15 | disposition home or self-care (01) ==
LOC: ED 18:42
PROVIDERS: Emergency Medicine Emergency Medical Services
DX: K59.00 Constipation, unspecified (principal); I50.9 Heart failure, unspecified; I12.9 Hypertensive chronic kidney disease with stage 1 through stage 4 chronic kidney disease, or unspecified chronic kidney disease; E11.22 Type 2 diabetes mellitus with diabetic chronic kidney disease; N18.3 Chronic kidney disease, stage 3 (moderate); F41.9 Anxiety disorder, unspecified; J44.9 Chronic obstructive pulmonary disease, unspecified; E11.9 Type 2 diabetes mellitus without complications; K21.9 Gastro-esophageal reflux disease without esophagitis; E78.00 Pure hypercholesterolemia, unspecified; I25.2 Old myocardial infarction; I25.10 Atherosclerotic heart disease of native coronary artery without angina pectoris; Z88.8 Allergy status to other drugs, medicaments and biological substances; Z79.899 Other long term (current) drug therapy; Z79.4 Long term (current) use of insulin; Z79.2 Long term (current) use of antibiotics; Z86.73 Personal history of transient ischemic attack (TIA), and cerebral infarction without residual deficits; Z90.49 Acquired absence of other specified parts of digestive tract

== ENCOUNTER 2020-01-23 06:27 | Inpatient (IN) | payer MEDICARE ==
[~2020-01-23] VITALS: Ht 195.5 cm; Wt 100.2 kg
[~2020-01-23 06:27] MED LIST changes: +MIRALAX119 GM PO
[2020-01-23 06:36] VITALS: BP 139/83
[2020-01-23 06:44] LABS: BASO % 0.8 % (0.0-1.0); EOS # 0.1 10*3/uL (0.0-0.4); EOS % 2.6 % (1.0-4.0); HEMATOCRIT 40.1 % (42.0-52.0); LYMPH # 1.2 10*3/uL (1.3-4.4); LYMPH % 24.5 % (27.0-41.0); MEAN CELL VOLUME 92.6 fl (80.0-94.0); MEAN CORPUSCULAR HGB 30.5 pg (27.0-31.0); MEAN CORPUSCULAR HGB CONC 32.9 g/dl (33.0-37.0); MEAN PLATELET VOLUME 9.9 fl (9.6-12.3); MONO # 0.5 10*3/uL (0.1-1.0); MONO % 9.1 % (3.0-9.0); NEUT # 3.1 10*3/uL (2.3-7.9); NEUT % 62.6 % (47.0-73.0); PLATELET COUNT AUTOMATED 149 10*3/uL (130-400); RED BLOOD COUNT 4.33 10*6/uL (4.50-5.90); RED CELL DISTRI WIDTH 13.5 % (0-14.5); WHITE BLOOD COUNT 4.9 10*3/uL (4.8-10.8)
--- NOTE | 2020-01-23 06:51 | NUR ---
PT TO CT
[2020-01-23 06:52] LABS: ACT PARTIAL THROMBO TIME 30.1 SECONDS (20.0-32.1)
--- NOTE | 2020-01-23 06:58 | NUR ---
PT GAVE THIS RN PERMISSION TO CALL HIS NIECE TO LET HER KNOW THAT HIS HOUSE DOORS WERE UNLOCKED AND HIS CAT WAS OUTSIDE. PERMISSION TO GIVE NIECE UPDATED INFORMATION PER PT. CHUY ALCARAZ [phone]
[2020-01-23 06:59] LABS: ALBUMIN 3.7 gm/dl (3.1-4.5); ALKALINE PHOSPHATASE 54 U/L (45-117); BUN 31 mg/dl (7-24); CHLORIDE 108 mmol/L (98-107); CREATININE 1.25 mg/dL (0.70-1.30); POTASSIUM 3.6 mmol/L (3.5-5.1); SGOT/AST 11 IU/L (3-35); SGPT/ALT 22 U/L (12-78); SODIUM 140 mmol/L (136-145)
[2020-01-23 07:00] LABS: TROPONIN I 0.019 ng/ml (<0.045)
--- NOTE | 2020-01-23 07:10 | NUR ---
NURSE REPORT ACCEPTED. PT RESTING WITH EYES CLOSED, NO VOICED COMPLAINTS. VITALS ON MONITOR STABLE AND WITHIN NORMAL LIMITS.
[2020-01-23 07:36] VITALS: BP 132/78
--- NOTE | 2020-01-23 07:56 | NUR ---
DR BHAGAT AT BEDSIDE DISCUSSING WITH PT HIS UPCOMING DISPOSITION. PT AND DR TELL ME ALL HIS NEUROLOGICAL COMPLAINTS HAVE RESOLVED.
--- NOTE | 2020-01-23 08:00 | NUR ---
pt requests to remAIN CLOTHED UNTIL ARRIVAL TO INPATIENT BED.
[2020-01-23 08:25] LABS: BILIRUBIN Negative; BLOOD 1+ (NEGATIVE); CLARITY Clear (CLEAR); COLOR Yellow (YELLOW); GLUCOSE Negative; KETONE Negative; LEUKO ESTERASE Negative (NEGATIVE); NITRITE Negative (NEGATIVE); PH 5.5 (4.5-8.0); SPECIFIC GRAVITY 1.025 (1.001-1.030); UROBILINOGEN 0.2 E.U./dl (0.0-1.0)
[2020-01-23 08:37] LABS: BACTERIA TRACE; RBC 16-20 rbc/hpf (0-2)
--- NOTE | 2020-01-23 10:20 | NUR ---
A 74, admitted to , under the services of DALJIT Chu MD with a diagnosis of TIA. Chief complaint is STROKE. Patient arrived via bed from ER. Monitor applied. Initial assessment completed. Vital signs taken and recorded. DALJIT CHU MD notified of admission to the unit. Orders received. See assessment for past medical history, medications and allergies. Patient and/or family oriented to unit. [facility] Clothing/patient valuable form completed. FEDERICO CRAMER
[2020-01-23 10:42] VITALS: BP 140/78
--- NOTE | 2020-01-23 10:58 | NUR ---
CALLED DR ARAUJO FOR ORDERS, REPEATED ORDERS BACK AND WILL ADD THEM DESIRED.
[2020-01-23 12:00] VITALS: BP 140/78
--- NOTE | 2020-01-23 12:06 | NUR ---
ORTHOS DONE AT THIS TIME AND ARE NEGATIVE
[2020-01-23 16:00] VITALS: BP 119/72
--- NOTE | 2020-01-23 16:00 | NUR ---
DR BAUTISTA IN TO SEE PATIENT
--- NOTE | 2020-01-23 16:54 | NUR ---
CALLED DR ARAUJO PER PT REQUEST OF WANTING ZOFRAN FOR UPSET STOMACH. PT ALSO STATES THAT HE HAS NOT HAD ANY HOME MEDICATIONS TODAY, DR ARAUJO STATES ITS OK TO RE-TIME THE MEDS
--- NOTE | 2020-01-23 17:18 | NUR ---
PRN ZOFRAN PO GIVEN FOR NAUSEA, WILL MONITOR FOR EFFECTIVENESS
--- NOTE | 2020-01-23 18:15 | NUR ---
PRN ZOFRAN EFFECTIVE PER PT
[2020-01-23 20:00] VITALS: BP 127/65
--- NOTE | 2020-01-23 21:08 | NUR ---
ASSESSMENT COMPLETE. MEDS TAKEN WITH EASE. RESPS EASY AND REGULAR ON ROOM AIR. DIZZY WITH RISING FROM SUPINE POSITION, ENCOURAGED TO RISE SLOWLY. BED IN LOWEST, LOCKED POS, CALL LIGHT IN REACH.
[2020-01-24] VITALS: BP 112/63
--- NOTE | 2020-01-24 02:40 | NUR ---
ZOFRAN GIVEN FOR C/O NAUSEA. DENIES DIZZINESS AT THIS TIME.
--- NOTE | 2020-01-24 02:50 | NUR ---
BLOOD SUGAR CHECKED, 103
[2020-01-24 03:15] VITALS: BP 122/89
--- NOTE | 2020-01-24 03:21 | NUR ---
PATIENT REPORTS THAT HE IS DIZZY WHEN LYING DOWN. DENIES ANY CHEST PAIN OR TINGLING IN FINGERTIPS. REQUESTING NITROGLYCERIN & TYLENOL. HR IS 70. STATES THAT HE JUST DOESNT FEEL GOOD AND THAT HE FEELS THIS WAY WHEN HE HAS A BLEED.
--- NOTE | 2020-01-24 04:49 | NUR ---
PHENERGEN GIVEN PER ORDER
--- NOTE | 2020-01-24 05:05 | NUR ---
NITRO GIVEN PER ORDER
--- NOTE | 2020-01-24 05:09 | NUR ---
PHENERGEN EFFECTIVE FOR NAUSEA
[2020-01-24 08:00] VITALS: BP 109/68
--- NOTE | 2020-01-24 09:00 | NUR ---
National Service Officer in to talk to patient. Patient states lives at home alone with his family and neighbors checking in on him. There are 36 steps (3 flights) in the home. Physician: Dr. Gulshan Downing [facility] Home health services: none Patient's level of ADLs: INDEPENDENT Patient has working utilities: yes DME: none Follow-up physician's appointment after d/c: he prefers to make his own follow up appt after discharge Does patient want to access PORTAL?: no Discharge plan discussed with patient. He lives at home alone with his dog and his sister's cat. His nieces and nephews along with neighbors check in on him. He is independent in his ADLs and ambulation. Discussed home health care services and he declines. CM will continue to follow for any discharge planning needs. When medically stable he will be discharged to home. He states his family will provide transportation on discharge. NICHOLAS JANG
[2020-01-24 10:17] LABS: BASO % 0.7 % (0.0-1.0); EOS # 0.2 10*3/uL (0.0-0.4); EOS % 2.8 % (1.0-4.0); HEMATOCRIT 43.1 % (42.0-52.0); MEAN CELL VOLUME 93.1 fl (80.0-94.0); MEAN CORPUSCULAR HGB CONC 32.3 g/dl (33.0-37.0); MEAN PLATELET VOLUME 9.9 fl (9.6-12.3); MONO # 0.5 10*3/uL (0.1-1.0); MONO % 8.6 % (3.0-9.0); NEUT # 3.7 10*3/uL (2.3-7.9); NEUT % 69.5 % (47.0-73.0); PLATELET COUNT AUTOMATED 145 10*3/uL (130-400); RED BLOOD COUNT 4.63 10*6/uL (4.50-5.90); RED CELL DISTRI WIDTH 13.5 % (0-14.5); WHITE BLOOD COUNT 5.4 10*3/uL (4.8-10.8)
[2020-01-24 10:47] LABS: ALBUMIN 3.7 gm/dl (3.1-4.5); ALKALINE PHOSPHATASE 48 U/L (45-117); CHLORIDE 108 mmol/L (98-107); CREATININE 1.25 mg/dL (0.70-1.30); SGOT/AST 21 IU/L (3-35); SGPT/ALT 20 U/L (12-78); TOTAL PROTEIN 7.2 gm/dL (6.4-8.2)
[2020-01-24 10:55] LABS: SODIUM 139 mmol/L (136-145)
[2020-01-24 10:56] LABS: BUN 21 mg/dl (7-24)
[2020-01-24 12:00] VITALS: BP 116/65
[2020-01-24 16:00] VITALS: BP 110/73
--- NOTE | 2020-01-24 19:51 | NUR ---
24 HR chart check completed.
[2020-01-24 20:00] VITALS: BP 114/63
--- NOTE | 2020-01-24 20:00 | NUR ---
AMBULATING ABOUT ROOM. NO DISTRESS NOTED. RESPIRATIONS EASY. LUNGS DIMINISHED, CLEAR. PULSE OX 97% RA. ABD SOFT WITH HYPER BOWEL SOUNDS, C/O NO BM X 3-4 DAYS. CALL LIGHT WITHIN REACH. NO VOICED COMPLAINTS
[2020-01-24] MEDS ORDERED: FUROSEMIDE40 MG PO (20:09)
[2020-01-24] MEDS ORDERED: ETHAMBUTOL HCL100 MG PO (20:09)
[2020-01-24] MEDS ORDERED: POTASSIUM CHLO10 MEQ PO (20:10)
[2020-01-24] MEDS ORDERED: ATORVASTATIN CA40 M1 PO (20:11)
--- NOTE | 2020-01-24 21:23 | NUR ---
MIRALAX PROVIDED TO ASSIST WITH CONSTIPATION. WILL MONITOR
--- NOTE | 2020-01-24 22:00 | NUR ---
DECLINES BSG CHECKED AT THIS TIME
[2020-01-25] VITALS: BP 128/77
--- NOTE | 2020-01-25 | NUR ---
REMAINS AWAKE BUT DROWSY. RESPIRATIONS EASY. VSS. CALL LIGHT WITHIN REACH. NO VOICED COMPLAINTS
--- NOTE | 2020-01-25 06:00 | NUR ---
AWAKE, STATES EARLIER MIRALAX NOT EFFECTIVE. CONTINUES TO C/O CONSTIPATION
[2020-01-25 08:00] VITALS: BP 119/70
--- NOTE | 2020-01-25 08:30 | NUR ---
CM in to see patient. He is ambulating the hallways without difficulty. When medically stable he will be discharged to home.
[2020-01-25 12:00] VITALS: BP 115/65
[2020-01-25] MEDS ORDERED: CLOPIDOGREL75 MG PO (14:20)
[2020-01-25] MEDS ORDERED: ASPIRIN CHEWABL81 MG PO (14:20)
--- NOTE | 2020-01-25 14:37 | NUR ---
Discharge instructions reviewed with patient/family. Patient receptive and verbalizes understanding. Follow-up care arranged. Written instructions given to patient/family. RIGO QUEEN
[2020-01-25 15:14] LABS: BUN 21 mg/dl (7-24); CHLORIDE 108 mmol/L (98-107); CREATININE 1.28 mg/dL (0.70-1.30); POTASSIUM 4.2 mmol/L (3.5-5.1); SODIUM 138 mmol/L (136-145)
== END 2020-01-25 14:37 | disposition home or self-care (01) | DRG 69 ==
LOC: ED 06:27 → 4E 09:57 → EDHOLD 09:57 → 4E 10:04
PROVIDERS: Emergency Medicine; ADMIT Internal Medicine; ATTEND Internal Medicine
DX: G45.9 Transient cerebral ischemic attack, unspecified (principal); K26.4 Chronic or unspecified duodenal ulcer with hemorrhage; I42.9 Cardiomyopathy, unspecified; I25.110 Atherosclerotic heart disease of native coronary artery with unstable angina pectoris; I13.0 Hypertensive heart and chronic kidney disease with heart failure and stage 1 through stage 4 chronic kidney disease, or unspecified chronic kidney disease; J90 Pleural effusion, not elsewhere classified; K21.9 Gastro-esophageal reflux disease without esophagitis; F41.9 Anxiety disorder, unspecified; Z96.653 Presence of artificial knee joint, bilateral; I50.9 Heart failure, unspecified; E11.65 Type 2 diabetes mellitus with hyperglycemia; N18.3 Chronic kidney disease, stage 3 (moderate); K26.9 Duodenal ulcer, unspecified as acute or chronic, without hemorrhage or perforation; N32.89 Other specified disorders of bladder; F32.9 Major depressive disorder, single episode, unspecified; N40.0 Benign prostatic hyperplasia without lower urinary tract symptoms; Z95.0 Presence of cardiac pacemaker; Z95.1 Presence of aortocoronary bypass graft; Z79.4 Long term (current) use of insulin; I25.2 Old myocardial infarction; Z88.8 Allergy status to other drugs, medicaments and biological substances; Z93.3 Colostomy status; Z87.891 Personal history of nicotine dependence; Z80.42 Family history of malignant neoplasm of prostate; Z82.49 Family history of ischemic heart disease and other diseases of the circulatory system; Z95.5 Presence of coronary angioplasty implant and graft; Z90.49 Acquired absence of other specified parts of digestive tract; Z79.899 Other long term (current) drug therapy

== ENCOUNTER 2021-01-02 09:34 | Emergency (ER) | payer MEDICARE ==
[~2021-01-02] VITALS: Wt 106.6 kg
[~2021-01-02 09:34] MED LIST changes: +ATORVASTATIN CA40 M1 PO; +CLOPIDOGREL75 MG PO
[2021-01-02 09:49] VITALS: BP 150/73
[2021-01-02 13:50] LABS: BASO % 0.4 % (0.0-1.0); EOS # 0.1 10*3/uL (0.0-0.4); EOS % 1.2 % (1.0-4.0); HEMATOCRIT 41.5 % (42.0-52.0); LYMPH # 0.7 10*3/uL (1.3-4.4); LYMPH % 10.8 % (27.0-41.0); MEAN CELL VOLUME 93.3 fl (80.0-94.0); MEAN CORPUSCULAR HGB 30.6 pg (27.0-31.0); MEAN CORPUSCULAR HGB CONC 32.8 g/dl (33.0-37.0); MEAN PLATELET VOLUME 9.6 fl (9.6-12.3); MONO # 0.5 10*3/uL (0.1-1.0); MONO % 7.5 % (3.0-9.0); NEUT # 5.3 10*3/uL (2.3-7.9); NEUT % 79.5 % (47.0-73.0); PLATELET COUNT AUTOMATED 237 10*3/uL (130-400); RED BLOOD COUNT 4.45 10*6/uL (4.50-5.90); RED CELL DISTRI WIDTH 13.3 % (0-14.5); WHITE BLOOD COUNT 6.7 10*3/uL (4.8-10.8)
[2021-01-02 14:05] LABS: ALKALINE PHOSPHATASE 61 U/L (45-117); BUN 25 mg/dl (7-24); CHLORIDE 105 mmol/L (98-107); CREATININE 1.38 mg/dL (0.70-1.30); LIPASE 55 U/L (73-393); POTASSIUM 4.5 mmol/L (3.5-5.1); SGOT/AST 49 IU/L (3-35); SGPT/ALT 47 U/L (12-78); SODIUM 138 mmol/L (136-145); TOTAL PROTEIN 8.2 gm/dL (6.4-8.2)
[2021-01-02 14:06] LABS: TROPONIN I < 0.015 ng/ml (<0.045)
[2021-01-02 15:51] LABS: BILIRUBIN Negative (Negative); BLOOD 1+ (Negative); CLARITY Clear (Clear); COLOR Yellow (Yellow); GLUCOSE 3+ (Negative); KETONE Negative (Negative); LEUKO ESTERASE Negative (Negative); NITRITE Negative (Negative); PH 5.5 (4.5-8.0); SPECIFIC GRAVITY >= 1.030 (1.001-1.030)
[2021-01-02 16:00] LABS: WBC 16-20 wbc/hpf (0-5)
[2021-01-02 16:01] LABS: BACTERIA 1+; EPITHELIAL CELLS 0-2
== END 2021-01-02 16:34 | disposition home or self-care (01) ==
LOC: ED 09:34
PROVIDERS: Emergency Medicine
DX: N32.9 Bladder disorder, unspecified (principal); Z88.1 Allergy status to other antibiotic agents; Z79.899 Other long term (current) drug therapy; Z87.891 Personal history of nicotine dependence

== ENCOUNTER 2021-07-01 19:08 | Emergency (ER) | payer MEDICARE ==
[~2021-07-01] VITALS: Wt 99.8 kg
[~2021-07-01 19:08] MED LIST changes: +NITROGLYCERIN0.4 MG SL; +OXYBUTYNIN5 MG PO; +TRUE METRIX GL1 EACH MC
[2021-07-01 19:20] VITALS: BP 138/70
[2021-07-01 20:11] LABS: BASO % 0.7 % (0.0-1.0); EOS # 0.5 10*3/uL (0.0-0.4); EOS % 12.7 % (1.0-4.0); HEMATOCRIT 34.1 % (42.0-52.0); LYMPH # 0.7 10*3/uL (1.3-4.4); LYMPH % 17.8 % (27.0-41.0); MEAN CELL VOLUME 94.7 fl (80.0-94.0); MEAN CORPUSCULAR HGB 30.8 pg (27.0-31.0); MEAN CORPUSCULAR HGB CONC 32.6 g/dl (33.0-37.0); MEAN PLATELET VOLUME 9.5 fl (9.6-12.3); MONO # 0.4 10*3/uL (0.1-1.0); MONO % 10.2 % (3.0-9.0); NEUT # 2.4 10*3/uL (2.3-7.9); NEUT % 58.4 % (47.0-73.0); PLATELET COUNT AUTOMATED 161 10*3/uL (130-400); RED CELL DISTRI WIDTH 12.7 % (0-14.5); WHITE BLOOD COUNT 4.1 10*3/uL (4.8-10.8)
[2021-07-01 20:27] LABS: CREATININE 1.69 mg/dL (0.70-1.30); POTASSIUM 4.2 mmol/L (3.5-5.1); TOTAL PROTEIN 6.4 gm/dL (6.4-8.2)
[2021-07-02 01:00] LABS: BILIRUBIN Negative (Negative); BLOOD 3+ (Negative); CLARITY Clear (Clear); COLOR Yellow (Yellow); GLUCOSE Negative (Negative); KETONE Negative (Negative); LEUKO ESTERASE Negative (Negative); NITRITE Negative (Negative); PH 5.5 (4.5-8.0); SPECIFIC GRAVITY 1.015 (1.001-1.030); UROBILINOGEN 0.2 E.U./dl (0.0-1.0)
[2021-07-02 01:11] LABS: BACTERIA TRACE; RBC 41-50 rbc/hpf (0-2)
== END 2021-07-02 03:07 | disposition home or self-care (01) ==
LOC: ED 19:08
PROVIDERS: Emergency Medicine
DX: R10.31 Right lower quadrant pain (principal); R10.32 Left lower quadrant pain; J44.9 Chronic obstructive pulmonary disease, unspecified; I50.9 Heart failure, unspecified; E11.9 Type 2 diabetes mellitus without complications; I25.10 Atherosclerotic heart disease of native coronary artery without angina pectoris; K21.9 Gastro-esophageal reflux disease without esophagitis; I25.2 Old myocardial infarction; I13.0 Hypertensive heart and chronic kidney disease with heart failure and stage 1 through stage 4 chronic kidney disease, or unspecified chronic kidney disease; E11.22 Type 2 diabetes mellitus with diabetic chronic kidney disease; N18.30 Chronic kidney disease, stage 3 unspecified; Z88.1 Allergy status to other antibiotic agents; Z79.899 Other long term (current) drug therapy; Z86.73 Personal history of transient ischemic attack (TIA), and cerebral infarction without residual deficits; Z90.49 Acquired absence of other specified parts of digestive tract; Z98.890 Other specified postprocedural states; Z87.891 Personal history of nicotine dependence

== ENCOUNTER → 2021-07-16 | Outpatient (CLI) | payer MEDICARE | END | disposition home or self-care (01) | LOC: NM 09:31 | PROVIDERS: ATTEND Urology | DX: J43.8 Other emphysema (principal); I51.7 Cardiomegaly; C61 Malignant neoplasm of prostate; C67.9 Malignant neoplasm of bladder, unspecified ==

== ENCOUNTER 2021-08-01 15:15 | Observation (INO) | payer MEDICARE ==
[~2021-08-01] VITALS: Ht 182.8 cm; Wt 103.6 kg
[2021-08-01 16:00] VITALS: BP 117/52
[2021-08-01 17:21] LABS: BASO % 0.4 % (0.0-1.0); EOS # 0.1 10*3/uL (0.0-0.4); EOS % 1.7 % (1.0-4.0); HEMATOCRIT 32.1 % (42.0-52.0); LYMPH # 0.8 10*3/uL (1.3-4.4); LYMPH % 16.6 % (27.0-41.0); MEAN CELL VOLUME 93.6 fl (80.0-94.0); MEAN CORPUSCULAR HGB 30.9 pg (27.0-31.0); MEAN PLATELET VOLUME 9.8 fl (9.6-12.3); MONO # 0.5 10*3/uL (0.1-1.0); MONO % 11.5 % (3.0-9.0); NEUT # 3.3 10*3/uL (2.3-7.9); NEUT % 69.4 % (47.0-73.0); PLATELET COUNT AUTOMATED 196 10*3/uL (130-400); RED BLOOD COUNT 3.43 10*6/uL (4.50-5.90); RED CELL DISTRI WIDTH 13.2 % (0-14.5); WHITE BLOOD COUNT 4.7 10*3/uL (4.8-10.8)
[2021-08-01 17:45] LABS: ALKALINE PHOSPHATASE 57 U/L (45-117); BUN 25 mg/dl (7-24); CHLORIDE 107 mmol/L (98-107); POTASSIUM 3.9 mmol/L (3.5-5.1); SGOT/AST 21 IU/L (3-35); SGPT/ALT 32 U/L (12-78); SODIUM 139 mmol/L (136-145); TOTAL PROTEIN 7.3 gm/dL (6.4-8.2)
[2021-08-01 20:00] VITALS: BP 96/53
[2021-08-02] VITALS: BP 98/49
[2021-08-02 08:00] VITALS: BP 115/62
[2021-08-02 12:00] VITALS: BP 118/60
[2021-08-02] MEDS ORDERED: IMDUR SA30 MG PO (12:07)
[2021-08-02] MEDS ORDERED: RANEXA500 M1 PO (12:07)
[2021-08-02] MEDS ORDERED: COREG3.125 MG PO (12:20)
== END 2021-08-02 12:41 | disposition short-term general hospital (02) ==
LOC: 5E 15:15
PROVIDERS: ADMIT Internal Medicine; ATTEND Internal Medicine
DX: I25.118 Atherosclerotic heart disease of native coronary artery with other forms of angina pectoris (principal); R07.89 Other chest pain; D64.9 Anemia, unspecified; M79.602 Pain in left arm; M54.9 Dorsalgia, unspecified; I42.9 Cardiomyopathy, unspecified; K21.9 Gastro-esophageal reflux disease without esophagitis; F32.9 Major depressive disorder, single episode, unspecified; I13.0 Hypertensive heart and chronic kidney disease with heart failure and stage 1 through stage 4 chronic kidney disease, or unspecified chronic kidney disease; E11.22 Type 2 diabetes mellitus with diabetic chronic kidney disease; N18.30 Chronic kidney disease, stage 3 unspecified; I50.9 Heart failure, unspecified; J44.9 Chronic obstructive pulmonary disease, unspecified; G45.9 Transient cerebral ischemic attack, unspecified; N40.0 Benign prostatic hyperplasia without lower urinary tract symptoms; C67.9 Malignant neoplasm of bladder, unspecified; Z95.5 Presence of coronary angioplasty implant and graft; Z87.891 Personal history of nicotine dependence; Z96.653 Presence of artificial knee joint, bilateral; Z95.1 Presence of aortocoronary bypass graft; I25.2 Old myocardial infarction; Z79.82 Long term (current) use of aspirin; Z79.899 Other long term (current) drug therapy

== ENCOUNTER 2021-10-13 07:46 | Emergency (ER) | payer MEDICARE ==
[~2021-10-13] VITALS: Ht 190.5 cm; Wt 99.8 kg
[~2021-10-13 07:46] MED LIST changes: +COREG3.125 MG PO; +IMDUR SA30 MG PO; +RANEXA500 M1 PO
[2021-10-13 07:59] VITALS: BP 151/65
[2021-10-13 08:13] LABS: BASO % 0.4 % (0.0-1.0); EOS # 0.1 10*3/uL (0.0-0.4); EOS % 3.1 % (1.0-4.0); HEMATOCRIT 29.3 % (42.0-52.0); LYMPH # 0.8 10*3/uL (1.3-4.4); LYMPH % 18.1 % (27.0-41.0); MEAN CELL VOLUME 98.7 fl (80.0-94.0); MEAN CORPUSCULAR HGB 32.3 pg (27.0-31.0); MEAN CORPUSCULAR HGB CONC 32.8 g/dl (33.0-37.0); MEAN PLATELET VOLUME 9.9 fl (9.6-12.3); MONO # 0.4 10*3/uL (0.1-1.0); MONO % 9.4 % (3.0-9.0); NEUT # 3.2 10*3/uL (2.3-7.9); NEUT % 68.8 % (47.0-73.0); PLATELET COUNT AUTOMATED 166 10*3/uL (130-400); RED BLOOD COUNT 2.97 10*6/uL (4.50-5.90); RED CELL DISTRI WIDTH 13.8 % (0-14.5); WHITE BLOOD COUNT 4.6 10*3/uL (4.8-10.8)
[2021-10-13 08:24] LABS: ACT PARTIAL THROMBO TIME 26.6 SECONDS (20.0-32.1); INTERNATIONAL NORM RATIO 1.1 (2.0-3.5)
[2021-10-13 08:41] LABS: ALKALINE PHOSPHATASE 54 U/L (45-117); BUN 33 mg/dl (7-24); CHLORIDE 108 mmol/L (98-107); CREATININE 1.33 mg/dL (0.70-1.30); POTASSIUM 3.9 mmol/L (3.5-5.1); SGOT/AST 18 IU/L (3-35); SGPT/ALT 33 U/L (12-78); SODIUM 140 mmol/L (136-145); TOTAL PROTEIN 6.7 gm/dL (6.4-8.2)
[2021-10-13 09:36] VITALS: BP 113/44
== END 2021-10-13 15:13 | disposition admitted as inpatient to this hospital (09) ==
LOC: ED 07:46 → EDHOLD 11:32 → ED 11:32 → EDHOLD 11:32
PROVIDERS: Emergency Medicine
DX: R07.89 Other chest pain (principal); I25.10 Atherosclerotic heart disease of native coronary artery without angina pectoris; I13.0 Hypertensive heart and chronic kidney disease with heart failure and stage 1 through stage 4 chronic kidney disease, or unspecified chronic kidney disease; E11.22 Type 2 diabetes mellitus with diabetic chronic kidney disease; N18.9 Chronic kidney disease, unspecified; I50.9 Heart failure, unspecified; Z95.5 Presence of coronary angioplasty implant and graft; J44.9 Chronic obstructive pulmonary disease, unspecified; Z86.73 Personal history of transient ischemic attack (TIA), and cerebral infarction without residual deficits; Z85.51 Personal history of malignant neoplasm of bladder; Z88.1 Allergy status to other antibiotic agents; Z79.899 Other long term (current) drug therapy; Z79.82 Long term (current) use of aspirin; Z79.4 Long term (current) use of insulin; Z96.653 Presence of artificial knee joint, bilateral; Z98.890 Other specified postprocedural states; Z87.891 Personal history of nicotine dependence

== ENCOUNTER 2022-04-06 09:02 | Emergency (ER) | payer MEDICARE ==
[~2022-04-06] VITALS: Ht 195.5 cm; Wt 100.7 kg
[~2022-04-06 09:02] MED LIST changes: +BICALUTAMIDE50 MG PO; +FINASTERIDE5 M1 PO; +Imdur SA60 MG PO; +JARDIANCE25 MG PO; +RANOLAZINE ER500 MG PO; +SENEXON-S 50-81 EACH PO
[2022-04-06 09:43] VITALS: BP 133/65
[2022-04-06 11:23] LABS: BASO % 0.5 % (0.0-1.0); EOS # 0.1 10*3/uL (0.0-0.4); EOS % 1.5 % (1.0-4.0); HEMATOCRIT 32.6 % (42.0-52.0); LYMPH # 0.4 10*3/uL (1.3-4.4); LYMPH % 10.4 % (27.0-41.0); MEAN CELL VOLUME 92.6 fl (80.0-94.0); MEAN CORPUSCULAR HGB CONC 31.3 g/dl (33.0-37.0); MEAN PLATELET VOLUME 9.9 fl (9.6-12.3); MONO # 0.4 10*3/uL (0.1-1.0); MONO % 9.5 % (3.0-9.0); NEUT # 3.1 10*3/uL (2.3-7.9); NEUT % 77.9 % (47.0-73.0); PLATELET COUNT AUTOMATED 192 10*3/uL (130-400); RED BLOOD COUNT 3.52 10*6/uL (4.50-5.90); RED CELL DISTRI WIDTH 14.8 % (0-14.5)
[2022-04-06 12:11] LABS: ALKALINE PHOSPHATASE 46 U/L (46-116); BUN 21 mg/dl (9-23); CHLORIDE 106 mmol/L (98-107); CREATININE 1.27 mg/dL (0.70-1.30); SGPT/ALT 33 U/L (10-49); SODIUM 138 mmol/L (136-145); TOTAL PROTEIN 6.6 gm/dL (6.0-8.0)
== END 2022-04-06 13:40 | disposition home or self-care (01) ==
LOC: ED 09:02
PROVIDERS: Student in an Organized Health Care Education/Training Program
DX: I25.10 Atherosclerotic heart disease of native coronary artery without angina pectoris (principal); I25.2 Old myocardial infarction; K21.9 Gastro-esophageal reflux disease without esophagitis; E11.9 Type 2 diabetes mellitus without complications; I50.9 Heart failure, unspecified; I11.0 Hypertensive heart disease with heart failure; Z88.1 Allergy status to other antibiotic agents; Z79.899 Other long term (current) drug therapy; Z98.890 Other specified postprocedural states; Z90.49 Acquired absence of other specified parts of digestive tract; Z90.89 Acquired absence of other organs; Z87.891 Personal history of nicotine dependence

== ENCOUNTER → 2022-05-23 | Outpatient (CLI) | payer MEDICARE | END | disposition home or self-care (01) | LOC: RAD 09:20 | PROVIDERS: ATTEND Internal Medicine | DX: J44.1 Chronic obstructive pulmonary disease with (acute) exacerbation (principal); Z95.1 Presence of aortocoronary bypass graft ==

== ENCOUNTER 2022-07-21 03:48 | Emergency (ER) | payer MEDICARE ==
[~2022-07-21] VITALS: Ht 195.5 cm; Wt 102.5 kg
[2022-07-21 04:01] VITALS: BP 126/81
[2022-07-21 04:30] LABS: BASO % 0.8 % (0.0-1.0); EOS # 0.1 10*3/uL (0.0-0.4); EOS % 3.5 % (1.0-4.0); HEMATOCRIT 36.2 % (42.0-52.0); LYMPH # 0.9 10*3/uL (1.3-4.4); LYMPH % 25.3 % (27.0-41.0); MEAN CELL VOLUME 91.6 fl (80.0-94.0); MEAN CORPUSCULAR HGB 30.4 pg (27.0-31.0); MEAN CORPUSCULAR HGB CONC 33.1 g/dl (33.0-37.0); MEAN PLATELET VOLUME 9.7 fl (9.6-12.3); MONO # 0.4 10*3/uL (0.1-1.0); MONO % 11.1 % (3.0-9.0); NEUT # 2.2 10*3/uL (2.3-7.9); NEUT % 58.5 % (47.0-73.0); PLATELET COUNT AUTOMATED 147 10*3/uL (130-400); RED BLOOD COUNT 3.95 10*6/uL (4.50-5.90); RED CELL DISTRI WIDTH 14.7 % (0-14.5); WHITE BLOOD COUNT 3.7 10*3/uL (4.8-10.8)
[2022-07-21 04:41] LABS: INTERNATIONAL NORM RATIO 1.1 (2.0-3.5)
[2022-07-21 04:47] LABS: POTASSIUM 3.7 mmol/L (3.4-5.1); TOTAL PROTEIN 6.8 gm/dL (6.0-8.0)
[2022-07-21] MEDS ORDERED: OMEPRAZOLE40 MG PO (06:39)
== END 2022-07-21 06:53 | disposition home or self-care (01) ==
LOC: ED 03:48
PROVIDERS: Internal Medicine
DX: K64.8 Other hemorrhoids (principal); D64.9 Anemia, unspecified; D72.819 Decreased white blood cell count, unspecified; I25.2 Old myocardial infarction; I13.0 Hypertensive heart and chronic kidney disease with heart failure and stage 1 through stage 4 chronic kidney disease, or unspecified chronic kidney disease; N18.31 Chronic kidney disease, stage 3a; I50.9 Heart failure, unspecified; E78.00 Pure hypercholesterolemia, unspecified; F41.9 Anxiety disorder, unspecified; F32.A Depression, unspecified; M19.90 Unspecified osteoarthritis, unspecified site; K21.9 Gastro-esophageal reflux disease without esophagitis; I25.10 Atherosclerotic heart disease of native coronary artery without angina pectoris; Z88.8 Allergy status to other drugs, medicaments and biological substances; Z96.653 Presence of artificial knee joint, bilateral; Z90.49 Acquired absence of other specified parts of digestive tract; Z98.890 Other specified postprocedural states; Z87.891 Personal history of nicotine dependence

== ENCOUNTER → 2022-08-22 | Outpatient (CLI) | payer MEDICARE ==
[~2022-08-22] MED LIST changes: +CARVEDILOL6.25 MG PO; +FAMOTIDINE40 MG PO; +MEGESTROL ACETA20 MG PO; +OMEPRAZOLE40 MG PO
== END | disposition home or self-care (01) ==
LOC: CT 08-08 11:00 → LAB 09:43 → CT 09:43
PROVIDERS: ATTEND Urology
DX: K40.90 Unilateral inguinal hernia, without obstruction or gangrene, not specified as recurrent (principal); C67.9 Malignant neoplasm of bladder, unspecified

== ENCOUNTER 2022-12-23 18:42 | Emergency (ER) | payer MEDICARE ==
[~2022-12-23] VITALS: Ht 195.5 cm; Wt 99.8 kg
[~2022-12-23 18:42] MED LIST changes: +MEDROXYPROGESTE10 M1 PO; +NOVOLOG100 UNIT/1 SQ
[2022-12-23 18:48] VITALS: BP 97/67
[2022-12-23 19:27] LABS: BASO % 0.2 % (0.0-1.0); EOS % 0.2 % (1.0-4.0); HEMATOCRIT 38.5 % (42.0-52.0); LYMPH # 0.3 10*3/uL (1.3-4.4); LYMPH % 7.9 % (27.0-41.0); MEAN CELL VOLUME 93.2 fl (80.0-94.0); MEAN CORPUSCULAR HGB 31.2 pg (27.0-31.0); MEAN CORPUSCULAR HGB CONC 33.5 g/dl (33.0-37.0); MEAN PLATELET VOLUME 9.7 fl (9.6-12.3); MONO # 0.6 10*3/uL (0.1-1.0); MONO % 15.3 % (3.0-9.0); NEUT # 3.1 10*3/uL (2.3-7.9); NEUT % 75.7 % (47.0-73.0); PLATELET COUNT AUTOMATED 131 10*3/uL (130-400); RED BLOOD COUNT 4.13 10*6/uL (4.50-5.90); RED CELL DISTRI WIDTH 14.3 % (0-14.5)
[2022-12-23 19:49] LABS: BILIRUBIN Negative (Negative); BLOOD Negative (Negative); CLARITY Clear (Clear); COLOR Yellow (Yellow); GLUCOSE 3+ (Negative); KETONE Negative (Negative); LEUKO ESTERASE Negative (Negative); NITRITE Negative (Negative)
[2022-12-23 19:52] LABS: TOTAL PROTEIN 6.7 gm/dL (6.0-8.0)
[2022-12-23 20:02] LABS: BACTERIA TRACE; RBC 0-2 rbc/hpf (0-2); WBC 0-2 wbc/hpf (0-5)
== END 2022-12-23 21:01 | disposition home or self-care (01) ==
LOC: ED 18:42
PROVIDERS: Internal Medicine
DX: U07.1 COVID-19 (principal); D64.9 Anemia, unspecified; I13.0 Hypertensive heart and chronic kidney disease with heart failure and stage 1 through stage 4 chronic kidney disease, or unspecified chronic kidney disease; N18.32 Chronic kidney disease, stage 3b; I25.10 Atherosclerotic heart disease of native coronary artery without angina pectoris; I25.2 Old myocardial infarction; I50.9 Heart failure, unspecified; K21.9 Gastro-esophageal reflux disease without esophagitis; E78.00 Pure hypercholesterolemia, unspecified; Z20.822 Contact with and (suspected) exposure to COVID-19; Z88.8 Allergy status to other drugs, medicaments and biological substances; Z96.653 Presence of artificial knee joint, bilateral; Z95.5 Presence of coronary angioplasty implant and graft; Z90.49 Acquired absence of other specified parts of digestive tract; Z87.891 Personal history of nicotine dependence

== ENCOUNTER 2023-01-07 06:31 | Emergency (ER) | payer MEDICARE ==
[~2023-01-07] VITALS: Ht 193 cm; Wt 90.0 kg
[2023-01-07 06:50] VITALS: BP 125/81
[2023-01-07 07:01] LABS: BASO % 0.4 % (0.0-1.0); EOS % 0.7 % (1.0-4.0); HEMATOCRIT 38.4 % (42.0-52.0); LYMPH # 0.5 10*3/uL (1.3-4.4); LYMPH % 9.5 % (27.0-41.0); MEAN CELL VOLUME 92.1 fl (80.0-94.0); MEAN CORPUSCULAR HGB 31.9 pg (27.0-31.0); MEAN CORPUSCULAR HGB CONC 34.6 g/dl (33.0-37.0); MEAN PLATELET VOLUME 8.9 fl (9.6-12.3); MONO # 0.6 10*3/uL (0.1-1.0); MONO % 10.1 % (3.0-9.0); NEUT # 4.5 10*3/uL (2.3-7.9); NEUT % 78.9 % (47.0-73.0); PLATELET COUNT AUTOMATED 191 10*3/uL (130-400); RED BLOOD COUNT 4.17 10*6/uL (4.50-5.90); WHITE BLOOD COUNT 5.7 10*3/uL (4.8-10.8)
[2023-01-07 07:15] LABS: ACT PARTIAL THROMBO TIME 28.2 SECONDS (20.0-32.1); INTERNATIONAL NORM RATIO 1.1 (2.0-3.5)
[2023-01-07 07:22] LABS: ALKALINE PHOSPHATASE 61 U/L (46-116); BUN 16 mg/dl (9-23); CHLORIDE 103 mmol/L (98-107); LIPASE 25 U/L (12-53); POTASSIUM 3.9 mmol/L (3.4-5.1); SGPT/ALT 33 U/L (10-49); TOTAL PROTEIN 6.9 gm/dL (6.0-8.0)
[2023-01-07] MEDS ORDERED: TRAMADOL HCL50 MG PO (09:20)
== END 2023-01-07 09:15 | disposition home or self-care (01) ==
LOC: ED 06:31
PROVIDERS: Internal Medicine
DX: R07.89 Other chest pain (principal); M54.50 Low back pain, unspecified; I25.10 Atherosclerotic heart disease of native coronary artery without angina pectoris; I25.2 Old myocardial infarction; I50.9 Heart failure, unspecified; I11.0 Hypertensive heart disease with heart failure; K21.9 Gastro-esophageal reflux disease without esophagitis; E78.00 Pure hypercholesterolemia, unspecified; D64.9 Anemia, unspecified; E11.9 Type 2 diabetes mellitus without complications; F41.9 Anxiety disorder, unspecified; F32.A Depression, unspecified; M19.90 Unspecified osteoarthritis, unspecified site; Z88.8 Allergy status to other drugs, medicaments and biological substances; Z96.653 Presence of artificial knee joint, bilateral; Z98.890 Other specified postprocedural states; Z95.5 Presence of coronary angioplasty implant and graft; Z90.49 Acquired absence of other specified parts of digestive tract; Z87.891 Personal history of nicotine dependence

== ENCOUNTER 2023-01-07 19:45 | Emergency (ER) | payer MEDICARE ==
[~2023-01-07] VITALS: Ht 195.5 cm; Wt 95.7 kg
[~2023-01-07 19:45] MED LIST changes: +TRAMADOL HCL50 MG PO
[2023-01-07 20:19] VITALS: BP 124/53
== END 2023-01-07 21:30 | disposition home or self-care (01) ==
LOC: ED 19:45
DX: Z01.84 Encounter for antibody response examination (principal); D72.819 Decreased white blood cell count, unspecified; J44.9 Chronic obstructive pulmonary disease, unspecified; I25.10 Atherosclerotic heart disease of native coronary artery without angina pectoris; Z86.73 Personal history of transient ischemic attack (TIA), and cerebral infarction without residual deficits; E11.9 Type 2 diabetes mellitus without complications; I25.2 Old myocardial infarction; I50.9 Heart failure, unspecified; I11.0 Hypertensive heart disease with heart failure; K21.9 Gastro-esophageal reflux disease without esophagitis; F32.A Depression, unspecified; F41.9 Anxiety disorder, unspecified; M19.90 Unspecified osteoarthritis, unspecified site; E78.00 Pure hypercholesterolemia, unspecified; D64.9 Anemia, unspecified; Z88.8 Allergy status to other drugs, medicaments and biological substances; Z96.653 Presence of artificial knee joint, bilateral; Z98.890 Other specified postprocedural states; Z95.5 Presence of coronary angioplasty implant and graft; Z90.49 Acquired absence of other specified parts of digestive tract; Z87.891 Personal history of nicotine dependence; Z20.822 Contact with and (suspected) exposure to COVID-19

== ENCOUNTER 2023-03-02 03:33 | Emergency (ER) | payer MEDICARE ==
[~2023-03-02] VITALS: Ht 193 cm; Wt 99.8 kg
[2023-03-02 03:45] VITALS: BP 137/82
[2023-03-02 04:21] LABS: BASO % 0.2 % (0.0-1.0); EOS # 0.1 10*3/uL (0.0-0.4); EOS % 2.7 % (1.0-4.0); HEMATOCRIT 35.7 % (42.0-52.0); LYMPH # 0.8 10*3/uL (1.3-4.4); MEAN CELL VOLUME 93.2 fl (80.0-94.0); MEAN CORPUSCULAR HGB 31.6 pg (27.0-31.0); MEAN CORPUSCULAR HGB CONC 33.9 g/dl (33.0-37.0); MEAN PLATELET VOLUME 9.6 fl (9.6-12.3); MONO # 0.4 10*3/uL (0.1-1.0); MONO % 10.5 % (3.0-9.0); NEUT # 2.7 10*3/uL (2.3-7.9); NEUT % 66.9 % (47.0-73.0); PLATELET COUNT AUTOMATED 158 10*3/uL (130-400); RED BLOOD COUNT 3.83 10*6/uL (4.50-5.90); RED CELL DISTRI WIDTH 13.9 % (0-14.5)
[2023-03-02 04:32] LABS: ACT PARTIAL THROMBO TIME 26.8 SECONDS (20.0-32.1); INTERNATIONAL NORM RATIO 1.1 (2.0-3.5)
[2023-03-02 04:46] LABS: ALKALINE PHOSPHATASE 61 U/L (46-116); BUN 25 mg/dl (9-23); CHLORIDE 110 mmol/L (98-107); LIPASE 41 U/L (12-53); POTASSIUM 3.5 mmol/L (3.4-5.1); SGPT/ALT 21 U/L (5-49); TOTAL PROTEIN 6.8 gm/dL (6.0-8.0)
[2023-03-02 06:28] LABS: BILIRUBIN Negative (Negative); BLOOD 2+ (Negative); CLARITY Clear (Clear); COLOR Yellow (Yellow); GLUCOSE 3+ (Negative); KETONE Negative (Negative); NITRITE Negative (Negative); UROBILINOGEN 0.2 E.U./dl (0.0-1.0)
[2023-03-02 06:31] LABS: LEUKO ESTERASE Negative (Negative)
[2023-03-02 06:39] LABS: BACTERIA 1+; RBC 16-20 rbc/hpf (0-2)
== END 2023-03-02 06:50 | disposition home or self-care (01) ==
LOC: ED 03:33
PROVIDERS: Internal Medicine
DX: R33.9 Retention of urine, unspecified (principal); I11.0 Hypertensive heart disease with heart failure; I25.10 Atherosclerotic heart disease of native coronary artery without angina pectoris; I25.2 Old myocardial infarction; I50.9 Heart failure, unspecified; K21.9 Gastro-esophageal reflux disease without esophagitis; E11.9 Type 2 diabetes mellitus without complications; F32.A Depression, unspecified; F41.9 Anxiety disorder, unspecified; M19.90 Unspecified osteoarthritis, unspecified site; E78.00 Pure hypercholesterolemia, unspecified; D64.9 Anemia, unspecified; Z88.8 Allergy status to other drugs, medicaments and biological substances; Z96.653 Presence of artificial knee joint, bilateral; Z90.49 Acquired absence of other specified parts of digestive tract; Z98.890 Other specified postprocedural states; Z95.5 Presence of coronary angioplasty implant and graft; Z87.891 Personal history of nicotine dependence

== ENCOUNTER → 2023-07-08 | Outpatient (CLI) | payer MEDICARE ==
[~2023-07-08] MED LIST changes: +COREG6.25 MG PO; +GLUMETZA1000 MG PO
== END | disposition home or self-care (01) ==
LOC: RAD 10:27
PROVIDERS: ATTEND Internal Medicine
DX: R05.9 Cough, unspecified (principal); M89.49 Other hypertrophic osteoarthropathy, multiple sites; I51.7 Cardiomegaly; Z95.1 Presence of aortocoronary bypass graft; Z95.5 Presence of coronary angioplasty implant and graft; R06.02 Shortness of breath

== ENCOUNTER 2023-08-22 16:13 | Emergency (ER) | payer MEDICARE ==
[~2023-08-22] VITALS: Ht 187.9 cm; Wt 81.6 kg
[~2023-08-22 16:13] MED LIST changes: +ARICEPT5 M1 PO; +DOCUSATE SOD100 MG PO; +DONEPEZIL HYDROC5 MG PO; +ENTRESTO 24 MG1 EACH PO; +FEROSUL325 M1 PO; +TAMSULOSIN HCL0.4 MG PO; +VITAMIN D350 MCG PO; +ZOLOFT50 MG PO
[2023-08-22 16:33] LABS: BASO % 0.3 % (0.0-1.0); EOS # 0.1 10*3/uL (0.0-0.4); EOS % 1.1 % (1.0-4.0); HEMATOCRIT 33.4 % (42.0-52.0); LYMPH # 0.5 10*3/uL (1.3-4.4); LYMPH % 7.4 % (27.0-41.0); MEAN CELL VOLUME 94.4 fl (80.0-94.0); MEAN CORPUSCULAR HGB 29.9 pg (27.0-31.0); MEAN CORPUSCULAR HGB CONC 31.7 g/dl (33.0-37.0); MEAN PLATELET VOLUME 9.2 fl (9.6-12.3); MONO # 0.6 10*3/uL (0.1-1.0); MONO % 8.3 % (3.0-9.0); NEUT # 5.5 10*3/uL (2.3-7.9); NEUT % 82.3 % (47.0-73.0); PLATELET COUNT AUTOMATED 207 10*3/uL (130-400); RED BLOOD COUNT 3.54 10*6/uL (4.50-5.90); RED CELL DISTRI WIDTH 13.8 % (0-14.5); WHITE BLOOD COUNT 6.7 10*3/uL (4.8-10.8)
[2023-08-22 16:43] LABS: ACT PARTIAL THROMBO TIME 26.7 SECONDS (20.0-32.1)
[2023-08-22 16:54] LABS: POTASSIUM 4.1 mmol/L (3.4-5.1); TOTAL PROTEIN 6.7 gm/dL (6.0-8.0)
[2023-08-22 17:10] VITALS: BP 112/60
[2023-08-22] MEDS ORDERED: HYDROmorphONE Hydrochloride 0.5 MG/0.5 ML SYRINGE IV ONE (20:45)
== END 2023-08-22 22:26 | disposition short-term general hospital (02) ==
LOC: ED 16:13
PROVIDERS: Internal Medicine
DX: T82.111A Breakdown (mechanical) of cardiac pulse generator (battery), initial encounter (principal); R00.1 Bradycardia, unspecified; I50.9 Heart failure, unspecified; I25.10 Atherosclerotic heart disease of native coronary artery without angina pectoris; I11.0 Hypertensive heart disease with heart failure; K21.9 Gastro-esophageal reflux disease without esophagitis; E78.00 Pure hypercholesterolemia, unspecified; D64.9 Anemia, unspecified; F32.A Depression, unspecified; F41.9 Anxiety disorder, unspecified; M19.90 Unspecified osteoarthritis, unspecified site; E11.9 Type 2 diabetes mellitus without complications; Z88.8 Allergy status to other drugs, medicaments and biological substances; Z98.890 Other specified postprocedural states; Z90.49 Acquired absence of other specified parts of digestive tract; Z96.653 Presence of artificial knee joint, bilateral; Z87.891 Personal history of nicotine dependence; Y82.8 Other medical devices associated with adverse incidents; Y92.009 Unspecified place in unspecified non-institutional (private) residence as the place of occurrence of the external cause

== ENCOUNTER 2023-09-12 20:29 | Inpatient (IN) | payer OTHER ==
[~2023-09-12] VITALS: Ht 195.6 cm; Wt 93.6 kg
[~2023-09-12 20:29] MED LIST changes: +AMIODARONE HYD200 MG PO; +BUMETANIDE1 MG PO; +DIOVAN40 MG PO; +ELIQUIS5 M1 PO
[2023-09-12 20:50] VITALS: BP 90/35
[2023-09-12] MEDS ORDERED: fentaNYL CITRATE 100 MCG/2 ML VIAL IV PRN (20:50)
[2023-09-12] MEDS ORDERED: ATROPINE SULFATE 1% 2 ML BOTTLE SL PRN (20:50)
[2023-09-12] MEDS ORDERED: DIAZEPAM 10 MG/2 ML SYR IV PRN (20:50)
[2023-09-12] MEDS ORDERED: Albuterol Sulf/Ipratropium 3 ML VIAL NEB PRN (20:50)
[2023-09-12] MEDS ORDERED: fentaNYL CITRATE 1,000 MCG in SODIUM CHLORIDE 0.9% 230 ML IV SCH (21:00)
[2023-09-12] MEDS ORDERED: SODIUM CHLORIDE 0.9% 500 ML IV SCH (21:15)
[2023-09-13] VITALS: BP 95/59
[2023-09-13 08:00] VITALS: BP 102/69
[2023-09-13] MEDS ORDERED: Ondansetron Hydrochloride 4 MG/2 ML VIAL IV PRN (08:25)
[2023-09-13 12:00] VITALS: BP 98/61
[2023-09-13 16:00] VITALS: BP 90/51
[2023-09-13 20:00] VITALS: BP 92/51
[2023-09-13] MEDS ORDERED: LORazepam 0.5 MG TAB PO PRN (23:00)
[2023-09-13] MEDS ORDERED: Polyethylene Glycol 3350 17 GM PACKET PO ONE (23:00)
[2023-09-14] VITALS: BP 134/57
[2023-09-14] MEDS ORDERED: Pantoprazole Sodium 40 MG TAB PO SCH (06:00)
[2023-09-14 08:00] VITALS: BP 90/48
[2023-09-14] MEDS ORDERED: ATORVASTATIN CALCIUM 40 MG TABLET PO SCH (10:00)
[2023-09-14] MEDS ORDERED: Polyethylene Glycol 3350 17 GM PACKET PO SCH (10:00)
[2023-09-14] MEDS ORDERED: Tamsulosin Hydrochloride 0.4 MG CAP PO SCH (10:00)
[2023-09-14] MEDS ORDERED: FINASTERIDE 5 MG TAB PO SCH (10:00)
[2023-09-14] MEDS ORDERED: Donepezil Hydrochloride 5 MG TAB PO SCH (10:00)
[2023-09-14] MEDS ORDERED: Sertraline Hydrochloride 50 MG TAB PO SCH (10:00)
[2023-09-14] MEDS ORDERED: Ranolazine 500 MG TAB ER PO SCH (10:00)
[2023-09-14] MEDS ORDERED: Insulin Lispro, Recombinant 1 UNIT/0.01 ML UN SC SCH (10:00)
[2023-09-14] MEDS ORDERED: DOCUSATE SODIUM 100 MG CAP PO SCH (10:00)
[2023-09-14] MEDS ORDERED: Amiodarone Hydrochloride 200 MG TAB PO SCH (10:00)
[2023-09-14] MEDS ORDERED: EMPAGLIFLOZIN 25 MG TABLET PO SCH (10:00)
[2023-09-14 12:00] VITALS: BP 118/73
[2023-09-14] MEDS ORDERED: LACTULOSE 20 GM/30 ML UDC PO ONE (15:55)
[2023-09-14 16:00] VITALS: BP 100/58
[2023-09-14 20:00] VITALS: BP 98/50
[2023-09-14] MEDS ORDERED: SPIRONOLACTONE 25 MG TAB PO SCH (22:00)
[2023-09-15] VITALS: BP 78/46
[2023-09-15 00:10] VITALS: BP 100/54
[2023-09-15 08:00] VITALS: BP 112/61
[2023-09-15] MEDS ORDERED: INSULIN NPH HUM/REG INSULIN HM 1 UNIT/0.01 ML SC SCH (10:00)
[2023-09-15 12:00] VITALS: BP 105/68
[2023-09-15] MEDS ORDERED: fentaNYL 50 MCG PATCH T SCH (12:05)
[2023-09-15 13:35] LABS: BASO % 0.5 % (0.0-1.0); EOS # 0.1 10*3/uL (0.0-0.4); EOS % 1.6 % (1.0-4.0); HEMATOCRIT 28.5 % (42.0-52.0); LYMPH # 0.6 10*3/uL (1.3-4.4); MEAN CELL VOLUME 103.6 fl (80.0-94.0); MEAN CORPUSCULAR HGB CONC 30.9 g/dl (33.0-37.0); MEAN PLATELET VOLUME 9.3 fl (9.6-12.3); MONO # 0.4 10*3/uL (0.1-1.0); MONO % 8.7 % (3.0-9.0); NEUT # 3.3 10*3/uL (2.3-7.9); NEUT % 75.7 % (47.0-73.0); PLATELET COUNT AUTOMATED 189 10*3/uL (130-400); RED BLOOD COUNT 2.75 10*6/uL (4.50-5.90); RED CELL DISTRI WIDTH 18.8 % (0-14.5); WHITE BLOOD COUNT 4.4 10*3/uL (4.8-10.8)
[2023-09-15 13:54] LABS: POTASSIUM 4.2 mmol/L (3.4-5.1)
[2023-09-15 16:00] VITALS: BP 91/45
[2023-09-15] MEDS ORDERED: SODIUM CHLORIDE 0.9% 100 ML BAG IV ONE (18:00)
[2023-09-15 20:00] VITALS: BP 99/55
[2023-09-16] VITALS: BP 112/62
[2023-09-16 08:00] VITALS: BP 110/79
[2023-09-16 12:00] VITALS: BP 112/76
[2023-09-16 16:00] VITALS: BP 97/64
[2023-09-16 20:00] VITALS: BP 105/71
[2023-09-17] VITALS: BP 97/53
[2023-09-17 08:00] VITALS: BP 102/50
[2023-09-17] MEDS ORDERED: TAMSULOSIN HCL0.4 MG PO (11:05)
[2023-09-17] MEDS ORDERED: ATORVASTATIN CA40 M1 PO (11:05)
[2023-09-17] MEDS ORDERED: PANTOPRAZOLE SO40 MG PO (11:05)
[2023-09-17] MEDS ORDERED: DONEPEZIL HYDROC5 MG PO (11:05)
[2023-09-17] MEDS ORDERED: SERTRALINE HYDR50 MG PO (11:05)
[2023-09-17] MEDS ORDERED: AMIODARONE HYD200 MG PO (11:05)
[2023-09-17] MEDS ORDERED: FINASTERIDE5 M1 PO (11:05)
[2023-09-17] MEDS ORDERED: JARDIANCE25 MG PO (11:05)
[2023-09-17] MEDS ORDERED: ALDACTONE25 MG PO (11:05)
[2023-09-17] MEDS ORDERED: Ondansetron Hydrochloride 4 MG TAB PO ONE (11:35)
[2023-09-17 12:00] VITALS: BP 100/62
== END 2023-09-17 13:35 | disposition hospice, home (50) | DRG 292 ==
LOC: 4E 20:29
PROVIDERS: ADMIT Internal Medicine; ATTEND Internal Medicine
DX: I50.23 Acute on chronic systolic (congestive) heart failure (principal); I47.20 Ventricular tachycardia, unspecified; D64.9 Anemia, unspecified; E11.9 Type 2 diabetes mellitus without complications; F41.9 Anxiety disorder, unspecified; Z51.5 Encounter for palliative care